=== PATIENT | female | born 1995 | race Caucasian/White ===

== ENCOUNTER 2020-03-05 11:04 | Emergency (ER) | payer MEDICAID, SELFPAY ==
--- NOTE | ~2020-03-05 | US_ITS ---
EXAMINATION: US OB <=14 wk fetus w TV EXAM DATE: 03/05/2020 14:18 INDICATION: , vaginal bleeding. 1st trimester. TECHNIQUE: Pelvic obstetrical transabdominal sonogram was performed by a technologist. There are mu ltiple grayscale and Doppler images available for interpretation. There are no earlier studies of th is gestation for comparison. FINDINGS: Uterus measures 7.4 x 4.4 x 6.4 cm. There is intrauterine gestation sac, mean sac diameter 3.1 cm corresponding to estimated gestational age 8 weeks 1 day. There is a yolk sac identified with small contiguous soft tissue, possible pole with heart rate measured at 98 bpm. If this is a f etal pole, there is discrepancy between size of it and the size of the gestation sac. There is a smal l subchorionic hemorrhage. The ovaries are morphologically normal. IMPRESSION: Intrauterine gestation sac significantly larger than would be expected for the possible small contiguous pole. Small subchorionic hemorrhage. Poor prognostic indicators for this pregn randa. Consider one week follow-up pelvic sonogram. Reviewed, dictated and finalized at location B. IOLOGY NURSE PRACTITIONER IMPRESSION: Intrauterine gestation sac significantly larger than would be expe cted for the possible small contiguous pole. Small subchorionic hemorrhag e. Poor prognostic indicators for this . Consider one week follow-up p vic sonogram.
[2020-03-05 11:11] VITALS: BP 111/72; PULSE 86; RESP 20; TEMP 36.7; O2SAT 99
--- NOTE | 2020-03-05 11:36 | ED.GENADULT ---
HPI - General Adult General Chief complaint: Vaginal Bleeding Stated complaint: Vag Bleeding, 6 Weeks Preg Time Seen by Provider: 03/05/20 11:16 Source: patient History of Present Illness HPI narrative: Patient is a 24 y/o female complaining of vaginal bleeding starting 3 days ago. She states that her bleeding is mild, like spotting. When it first started, the bleeding was bright red, but now it's more brown. There is no alleviating or exacerbating factor. She has no pelvic pain or dysuria. She states that she is . Her LMP was 01/24/20. Related Data Home Medications Medication Instructions Recorded Confirmed No Home Medications 03/05/20 03/05/20 Allergies Allergy/AdvReac Type Severity Reaction Status Date / Time No Known Allergies Allergy Verified 03/05/20 13:03 Review of Systems Constitutional: Constitutional: Denies chills, Denies fever(s), Denies headache(s) and Denies weakness Eyes: Eyes: Denies blurry vision ENT: Denies headache(s) and Denies neck pain Cardiovascular: Cardiovascular: Denies chest pain and Denies dyspnea Respiratory: Respiratory: Denies cough and Denies dyspnea Gastrointestinal: Gastrointestinal: Denies abdominal pain, Denies diarrhea, Denies nausea and Denies vomiting Genitourinary: Genitourinary: Reports abnormal vaginal bleeding, Denies hematuria and Denies dysuria Musculoskeletal: Musculoskeletal: Denies back pain and Denies neck pain Neurologic: Denies headache(s) and Denies weakness Exam Const: General: no acute distress and well developed Orientation/consciousness: oriented to person, oriented to place, oriented to time and patient oriented x3 HENMT: Head: normocephalic Ears: external ears normal General nose exam: Normal external nose present Eyes: General: appearance normal, both eyes and all related structures Conjunctivae: conjunctivae normal Neck: Neck: normal visual inspection and full ROM Chest: Chest palpation & inspection: normal inspection of the chest and no tenderness Resp: Effort & Inspection: normal respiratory effort Auscultation: clear to auscultation bilaterally Cardio: Rate: regular rate Rhythm: regular rhythm GI: GI Palp: No abdominal tenderness and Yes Soft to palpation : External Female Exam: normal external appearance Speculum Exam - Vagina: vaginal bleeding Speculum Exam - Cervix: normal appearance of the cervix and Other cervical findings present (closed) Skin: General skin exam: normal color and turgor normal Neuro: General: oriented to person, oriented to place, oriented to time and patient oriented x3 Cognition (Neuro): normal cognition Extrem: General: normal to inspection, full ROM and no pedal edema Psych: Appearance: grossly normal Mental Status: mental status grossly normal Affect: normal affect Course Consultations Consultation #1: Discussed with Dr. Griffin (Practical Nurse Clinical Coordinator section plotter operator), who recommends pelvic rest and repeat US in 1 week. Patient can all her office for follow up. Date: 03/05/20 Time: 14:58 Vital Signs Vital signs: Vital Signs Temperature 36.7 C 03/05/20 11:11 Pulse Rate 86 03/05/20 11:11 Respiratory Rate 20 03/05/20 11:11 Blood Pressure 111/72 03/05/20 11:11 Pulse Oximetry 99 03/05/20 11:11 Temperature 36.7 C 03/05/20 11:11 Pulse Rate 68 03/05/20 15:12 Respiratory Rate 18 03/05/20 15:12 Blood Pressure 120/70 03/05/20 15:12 Pulse Oximetry 99 03/05/20 15:12 Medical Decision Making Vital Signs Vital Signs: Vital Signs Temperature 36.7 C 03/05/20 11:11 Pulse Rate 86 03/05/20 11:11 Respiratory Rate 20 03/05/20 11:11 Blood Pressure 111/72 03/05/20 11:11 Pulse Oximetry 99 03/05/20 11:11 Temperature 36.7 C 03/05/20 11:11 Pulse Rate 68 03/05/20 15:12 Respiratory Rate 18 03/05/20 15:12 Blood Pressure 120/70 03/05/20 15:12 Pulse Oximetry 99 03/05/20 15:12 Lab Data Result diagrams: 03/05/20 12:30 03/05/20 12:30
[2020-03-05 12:39] LABS: Basophils Percent Auto 0.4 % (0.2-1.2); Eosinophils Percent Auto 0.4 % (0-4.4); Hematocrit 43.9 % (37.0-47.0); Hemoglobin 15.7 g/dL (12.0-15.0); Immature Granulocyte Absolute 0.02 K/mm3 (0.00-0.031); Immature Granulocyte Percent A 0.3 % (0-0.5); Lymphocytes Absolute Auto 1.35 K/mm3 (0.9-3.2); Mean Corpuscular HGB Conc 35.8 g/dl (32-36); Mean Corpuscular Hemoglobin 32.1 pg (26-34); Mean Corpuscular Volume 89.8 fl (80-100); Mean Platelet Volume 10.8 fl (7.4-10.4); Monocytes Absolute Auto 0.6 K/mm3 (0.1-0.6); Monocytes Percent Auto 8.8 % (2.6-8.5); Neutrophils Absolute Auto 4.7 K/mm3 (1.3-6.7); Neutrophils Percent Auto 70.1 % (45.5-73.1); Platelet Count Result 279 k/mm3 (150-375); Red Blood Count 4.89 M/mm3 (4.2-5.4); Red Cell Distribution Width 11.1 % (11.5-14.5); White Blood Count 6.7 K/mm3 (4.5-10.0)
[2020-03-05 12:41] LABS: Add Urine Microscopic? NO; Appearance Urine Clear (Clear); Bilirubin Urine Negative (Negative); Blood Urine Negative (Negative); Color Urine Straw (Yellow); Glucose Urine UA Negative (Negative); Ketones Urine Negative (Negative); Leukocyte Esterase Ur Negative LEU/UL (Negative); Nitrate Urine Negative (Negative); Protein Urine Negative (Negative); Specific Grav Ur 1.006 (1.001-1.035); Urobilinogen Urine Negative mg/dL (<2.0)
[2020-03-05 12:51] LABS: Alanine Aminotransferase 13 U/L (4-35); Albumin Level 4.9 g/dL (3.5-5.1); Alkaline Phosphatase 60 U/L (38-126); Anion Gap 14 mmol/L (8-16); Aspartate Amino Transferase 23 U/L (14-36); Bilirubin,Total 0.8 mg/dL (0.2-1.3); Blood Urea Nitrogen 5 mg/dL (7-17); Calcium 10.2 mg/dL (8.4-10.2); Carbon Dioxide 22 mmol/L (22-30); Chloride 102 mmol/L (98-107); Estimated Glomerular Filt Rate > 60; Glucose 79 mg/dL (65-105); Potassium 3.3 mmol/L (3.4-5.0); Sodium 138 mmol/L (137-145)
[2020-03-05 13:00] VITALS: BP 122/76; PULSE 70; RESP 18; O2SAT 99
[2020-03-05] MEDS: POTASSIUM CHLORIDE 20 MEQ TABLET PO (13:02)
[2020-03-05 15:12] VITALS: BP 120/70; PULSE 68; RESP 18; O2SAT 99
== END 2020-03-05 15:14 | disposition home or self-care (01) ==
PROVIDERS: Emergency Provider Emergency Medicine; PCP Internal Medicine
DX: O20.0 Threatened abortion (principal); Z3A.08 8 weeks gestation of pregnancy
CPT/HCPCS: 36415; 76801; 76817; 80053; 81003; 81025; 84702; 85025; 86900; 86901; 99284; A9270

== ENCOUNTER 2020-03-19 14:53 | Outpatient (CLI) | payer MEDICAID, SELFPAY ==
--- NOTE | ~2020-03-19 | US_ITS ---
EXAMINATION: US OB <=14 wk fetus w TV DATE: 03/19/2020 15:32 INDICATION: Threatened miscarriage, first trimester TECHNIQUE: Real-time pelvic transabdominal and transvaginal ultrasound was performed. COMPARISON: 03/05/2020 FINDINGS: The uterus measures 9.8 x 5.9 x 9.4 cm. There is an intrauterine gestational sac. A yolk s ac is identified. heart motion is identified measuring 161 beats per minute (bpm) by M-mode Dop pler. The crown rump length measures 1.6 cm , which correlates with an estimated gestational ag e of 8 weeks and 0 day(s) (+/-) 5 day(s). The right ovary measures 3.2 x 2.5 x 1.8 cm. The left ovary measures 4.3 x 3.7 x 2.2 cm. There is nor mal vascular flow in the ovaries. There is no free fluid in the pelvis. IMPRESSION: 1. Live intrauterine with an estimated gestational age of 8 weeks and 0 day(s) (+/-) 5 day( s) and an estimated delivery date of 10/29/2020. Reviewed, dictated and finalized at location A. CAL RECORD RETRIEVAL SPECIALIST IMPRESSION: 1. Live intrauterine with an estimated gestational age of 8 weeks and 0 day(s) (+/-) 5 day(s) and an estimated delivery date of 10/29/2020.
== END 2020-03-19 14:54 | disposition home or self-care (01) ==
PROVIDERS: PCP Internal Medicine; Visit Provider Obstetrics & Gynecology
DX: O20.0 Threatened abortion (principal); Z3A.08 8 weeks gestation of pregnancy
CPT/HCPCS: 76801; 76817

== ENCOUNTER 2020-05-08 12:49 | Outpatient (RCR) | payer MEDICAID, SELFPAY ==
[2020-05-08 13:22] LABS: Basophils Percent Auto 0.3 % (0.2-1.2); Eosinophils Percent Auto 0.5 % (0-4.4); Hematocrit 34.9 % (37.0-47.0); Hemoglobin 12.5 g/dL (12.0-15.0); Immature Granulocyte Absolute 0.02 K/mm3 (0.00-0.031); Immature Granulocyte Percent A 0.3 % (0-0.5); Lymphocytes Absolute Auto 1.11 K/mm3 (0.9-3.2); Lymphocytes Percent Auto 17.7 % (18.3-44.2); Mean Corpuscular HGB Conc 35.8 g/dl (32-36); Mean Corpuscular Hemoglobin 32.3 pg (26-34); Mean Corpuscular Volume 90.2 fl (80-100); Mean Platelet Volume 10.6 fl (7.4-10.4); Monocytes Absolute Auto 0.4 K/mm3 (0.1-0.6); Monocytes Percent Auto 6.2 % (2.6-8.5); Neutrophils Absolute Auto 4.7 K/mm3 (1.3-6.7); Platelet Count Result 243 k/mm3 (150-375); Red Blood Count 3.87 M/mm3 (4.2-5.4); Red Cell Distribution Width 12.8 % (11.5-14.5); White Blood Count 6.3 K/mm3 (4.5-10.0)
[2020-05-08 13:24] LABS: Add Urine Microscopic? NO; Appearance Urine Clear (Clear); Bilirubin Urine Negative (Negative); Blood Urine Negative (Negative); Color Urine Yellow (Yellow); Glucose Urine UA Negative (Negative); Ketones Urine Negative (Negative); Leukocyte Esterase Ur Negative LEU/UL (NEGATIVE); Nitrate Urine Negative (Negative); Protein Urine Negative (Negative); Specific Grav Ur 1.014 (1.001-1.035); Urobilinogen Urine Negative mg/dL (<2.0)
[2020-05-08 14:06] LABS: Vitamin D 25 Hydroxy 39.7 ng/mL
[2020-05-08 14:20] LABS: HIV 1/2 Ab P24 Ag Result Negative (Negative)
[2020-05-08 14:22] LABS: Hepatitis B Surface Antigen Negative (Negative); Rubella IgG Antibody 18.2 IU/ML
[2020-05-08 14:39] LABS: Hepatitis C Virus Antibody Negative (Negative)
[2020-05-09 10:38] LABS: Rapid Plasma Reagin Non-Reactive (NonReactive)
[2020-05-12 14:53] LABS: Hematocrit 36.2 % (35.0-45.0); Hemoglobin 12.5 g/dL (11.7-15.5); MCH 31.6 pg (27.0-33.0); MCV 91.9 FL (80.0-100.0); RDW 13.3 % (11.0-15.0); Red Blood Cell Count 3.94 Mill/uL (3.80-5.10)
== END 2020-08-06 23:59 | disposition home or self-care (01) ==
LOC: ANHLAB 12:49
PROVIDERS: PCP Internal Medicine; Visit Provider Student in an Organized Health Care Education/Training Program
DX: Z11.4 Encounter for screening for human immunodeficiency virus [HIV] (principal)
CPT/HCPCS: 36415; 81003; 82306; 83021; 84443; 85025; 86592; 86703; 86762; 86787; 86803; 86850; 86900; 86901; 87077; 87086; 87088; 87340; G0432

== ENCOUNTER 2020-07-28 07:29 | Outpatient (CLI) | payer MEDICAID, SELFPAY ==
[2020-07-28 08:50] LABS: Basophils Percent Auto 0.4 % (0.2-1.2); Eosinophils Absolute Auto 0.1 K/mm3 (0-0.3); Eosinophils Percent Auto 0.6 % (0-4.4); Hemoglobin 12.1 g/dL (12.0-15.0); Immature Granulocyte Absolute 0.11 K/mm3 (0.00-0.031); Immature Granulocyte Percent A 1.1 % (0-0.5); Lymphocytes Absolute Auto 1.06 K/mm3 (0.9-3.2); Lymphocytes Percent Auto 10.8 % (18.3-44.2); Mean Corpuscular HGB Conc 33.6 g/dl (32-36); Mean Corpuscular Hemoglobin 31.2 pg (26-34); Mean Corpuscular Volume 92.8 fl (80-100); Mean Platelet Volume 10.8 fl (7.4-10.4); Monocytes Absolute Auto 0.6 K/mm3 (0.1-0.6); Monocytes Percent Auto 6.2 % (2.6-8.5); Neutrophils Percent Auto 80.9 % (45.5-73.1); Platelet Count Result 261 k/mm3 (150-375); Red Blood Count 3.88 M/mm3 (4.2-5.4); Red Cell Distribution Width 12.2 % (11.5-14.5); White Blood Count 9.8 K/mm3 (4.5-10.0)
[2020-07-28 09:12] LABS: Glucose 1 Hour PP 50gm Dose 132 mg/dL
== END 2020-07-28 07:30 | disposition home or self-care (01) ==
PROVIDERS: PCP Internal Medicine; Visit Provider Student in an Organized Health Care Education/Training Program
DX: Z34.02 Encounter for supervision of normal first pregnancy, second trimester (principal); Z3A.00 Weeks of gestation of pregnancy not specified
CPT/HCPCS: 36415; 82947; 85025

== ENCOUNTER 2020-08-08 14:15 | Observation (INO) | payer MEDICAID, SELFPAY ==
[2020-08-08 14:31] VITALS: BP 105/66; PULSE 90
[2020-08-08 14:45] VITALS: BP 106/65; PULSE 87
[2020-08-08 15:00] VITALS: BP 115/74; PULSE 88
[2020-08-08] MEDS: DIPHENOXYLATE/ATROPINE (*CRX) 2.5 MG TABLET 1 TABLET PO (15:08)
--- NOTE | 2020-08-08 15:17 | PC.NURSE ---
1451-Spoke with Dr. Smith, orders to give lomotil PO, check cervix and PO hydrate patient. Continue to monitor.
--- NOTE | 2020-08-08 15:19 | OBADM ---
This patient, Lisbet Vasquez, admitted to the OB room OB Post 115 for observation. Patient/family oriented to hospital policies and general routines including ID bracelet, bed and alarms, visiting hours, pain management, procedures, bathroom and other care routines, personal items, smoking policy, room service/diet, and visiting hours. Patient/Family are encouraged to report perceived risks to care and to ask questions if they do not understand what they are told or what they should do.
--- NOTE | 2020-08-08 16:48 | PC.NURSE ---
4833- SPoke with Dr. Smith, patient states she is feeling a little bit better. Mid irritability noted with rare contractions. Orders to discharge to home with follow up next week in the office.
--- NOTE | 2020-08-29 10:53 | PM.OBTRLD ---
OB - Triage/Final Diagnosis Visit Information Comments/Additional reasons for admission: I have assessed the risk for this patient, Lisbet Vasquez, and determined that she would benefit from observation care. Final Diagnosis (1) Diarrhea during : Code(s): O26.899 - Other specified related conditions, unspecified trimester; R19.7 - Diarrhea, unspecified Status: Acute
== END 2020-08-08 16:57 | disposition home or self-care (01) ==
PROVIDERS: Admitting Provider Student in an Organized Health Care Education/Training Program; PCP Internal Medicine; Visit Provider Student in an Organized Health Care Education/Training Program
DX: O26.893 Other specified pregnancy related conditions, third trimester (principal); R19.7 Diarrhea, unspecified; Z3A.28 28 weeks gestation of pregnancy
CPT/HCPCS: A9270; G0378; G0379

== ENCOUNTER 2020-08-14 06:47 | Outpatient (CLI) | payer BC, SELFPAY ==
[2020-08-14 07:48] LABS: Glucose Fasting Gestational 89 mg/dL (>/=95)
[2020-08-14 09:20] LABS: Glucose 1 Hour Gest 137 mg/dL (>/=180)
[2020-08-14 10:13] LABS: Glucose 2 Hour Gest 114 mg/dL (>/= 155)
[2020-08-14 11:41] LABS: Glucose 3 Hour Gest 76 mg/dL (>/=140)
== END 2020-08-14 06:48 | disposition home or self-care (01) ==
PROVIDERS: PCP Internal Medicine; Visit Provider Student in an Organized Health Care Education/Training Program
DX: O99.810 Abnormal glucose complicating pregnancy (principal); Z3A.00 Weeks of gestation of pregnancy not specified
CPT/HCPCS: 36415; 82951; 82952

== ENCOUNTER 2020-09-17 17:07 | Outpatient (CLI) | payer BC, SELFPAY ==
[2020-09-17 17:35] LABS: Basophils Percent Auto 0.3 % (0.2-1.2); Eosinophils Absolute Auto 0.1 K/mm3 (0-0.3); Eosinophils Percent Auto 0.8 % (0-4.4); Hematocrit 37.5 % (37.0-47.0); Immature Granulocyte Absolute 0.17 K/mm3 (0.00-0.031); Immature Granulocyte Percent A 1.7 % (0-0.5); Lymphocytes Absolute Auto 1.25 K/mm3 (0.9-3.2); Lymphocytes Percent Auto 12.1 % (18.3-44.2); Mean Corpuscular Hemoglobin 28.8 pg (26-34); Mean Corpuscular Volume 89.9 fl (80-100); Mean Platelet Volume 11.5 fl (7.4-10.4); Monocytes Absolute Auto 0.8 K/mm3 (0.1-0.6); Monocytes Percent Auto 7.7 % (2.6-8.5); Neutrophils Percent Auto 77.4 % (45.5-73.1); Platelet Count Result 263 k/mm3 (150-375); Red Blood Count 4.17 M/mm3 (4.2-5.4); Red Cell Distribution Width 12.9 % (11.5-14.5); White Blood Count 10.3 K/mm3 (4.5-10.0)
[2020-09-17 19:30] LABS: HIV 1/2 Ab P24 Ag Result Negative (Negative)
[2020-09-18 10:09] LABS: Rapid Plasma Reagin Non-Reactive (NonReactive)
== END 2020-09-17 17:08 | disposition home or self-care (01) ==
PROVIDERS: PCP Internal Medicine; Visit Provider Student in an Organized Health Care Education/Training Program
DX: Z34.03 Encounter for supervision of normal first pregnancy, third trimester (principal); Z3A.00 Weeks of gestation of pregnancy not specified
CPT/HCPCS: 36415; 85025; 86592; 86703; G0432

== ENCOUNTER 2020-09-20 10:47 | Observation (INO) | payer BC, SELFPAY ==
[2020-09-20 11:00] VITALS: BMI 32.7
[2020-09-20 11:15] VITALS: BP 112/69; PULSE 85
[2020-09-20 11:30] VITALS: BP 117/69; PULSE 88
[2020-09-20 11:45] VITALS: BP 114/69; PULSE 82
[2020-09-20 12:00] VITALS: BP 115/66; PULSE 82
--- NOTE | 2020-09-20 12:20 | OBADM ---
This patient, Lisbet Vasquez, admitted to the OB room OB Post 117 for observation. Patient/family oriented to hospital policies and general routines including ID bracelet, bed and alarms, visiting hours, pain management, procedures, bathroom and other care routines, personal items, smoking policy, room service/diet, and visiting hours. Patient/Family are encouraged to report perceived risks to care and to ask questions if they do not understand what they are told or what they should do.
--- NOTE | 2020-10-10 16:21 | PM.OBTRLD ---
OB - Triage/Final Diagnosis Visit Information Comments/Additional reasons for admission: I have assessed the risk for this patient, Lisbet Vasquez, and determined that she would benefit from observation care. Final Diagnosis (1) Vaginal discharge in : Code(s): O26.899 - Other specified related conditions, unspecified trimester; N89.8 - Other specified noninflammatory disorders of vagina Status: Acute
== END 2020-09-20 12:16 | disposition home or self-care (01) ==
PROVIDERS: Admitting Provider Student in an Organized Health Care Education/Training Program; PCP Internal Medicine; Visit Provider Student in an Organized Health Care Education/Training Program
DX: O26.893 Other specified pregnancy related conditions, third trimester (principal); N89.8 Other specified noninflammatory disorders of vagina; Z3A.34 34 weeks gestation of pregnancy
CPT/HCPCS: 84112; G0378; G0379

== ENCOUNTER 2020-10-16 20:00 | Observation (INO) | payer BC, SELFPAY ==
[2020-10-16 20:30] VITALS: BMI 35.6
--- NOTE | 2020-10-16 20:30 | OBADM ---
This patient, Lisbet Vasquez, admitted to the OB room OB Post 113 for observation. Patient/family oriented to hospital policies and general routines including ID bracelet, bed and alarms, visiting hours, pain management, procedures, bathroom and other care routines, personal items, smoking policy, room service/diet, and visiting hours. Patient/Family are encouraged to report perceived risks to care and to ask questions if they do not understand what they are told or what they should do.
--- NOTE | 2020-10-19 15:25 | PM.OBTRLD ---
OB - Triage/Final Diagnosis Visit Information Comments/Additional reasons for admission: I have assessed the risk for this patient, Lisbet Vasquez, and determined that she would benefit from observation care. Final Diagnosis (1) Decreased movement: Code(s): O36.8190 - Decreased movements, unspecified trimester, not applicable or unspecified Status: Acute
== END 2020-10-16 21:52 | disposition home or self-care (01) ==
PROVIDERS: Admitting Provider Obstetrics & Gynecology; PCP Internal Medicine; Visit Provider Obstetrics & Gynecology
DX: O36.8190 Decreased fetal movements, unspecified trimester, not applicable or unspecified (principal); Z3A.00 Weeks of gestation of pregnancy not specified
CPT/HCPCS: G0378; G0379

== ENCOUNTER 2020-10-23 06:05 | Inpatient (IN) | payer BC, SELFPAY ==
[2020-10-23] VITALS (189 sets, daily range): BP systolic 86–158; BP diastolic 37–130; PULSE 60–138; RESP 16–18; TEMP 36.2–37.1; O2SAT 97–100; BMI 35.2
[2020-10-23] MEDS: AMPICILLIN 2 GM/NS 100 ML 2 GM/100 ML BAG IVPB (06:39)
[2020-10-23] MEDS: OXYTOCIN 30 UNITS/NS 500 ML 30 UNITS/500 ML BAG 6 UNITS IV CONT (06:40)
[2020-10-23] MEDS: LACTATED RINGERS 1,000 ML 125 ML IV CONT ×3 (06:40→16:51)
[2020-10-23 06:58] LABS: Basophils Percent Auto 0.4 % (0.2-1.2); Eosinophils Absolute Auto 0.1 K/mm3 (0-0.3); Eosinophils Percent Auto 0.8 % (0-4.4); Hematocrit 34.8 % (37.0-47.0); Hemoglobin 11.2 g/dL (12.0-15.0); Immature Granulocyte Absolute 0.09 K/mm3 (0.00-0.031); Immature Granulocyte Percent A 1.1 % (0-0.5); Lymphocytes Absolute Auto 1.34 K/mm3 (0.9-3.2); Lymphocytes Percent Auto 15.7 % (18.3-44.2); Mean Corpuscular HGB Conc 32.2 g/dl (32-36); Mean Corpuscular Hemoglobin 28.2 pg (26-34); Mean Corpuscular Volume 87.7 fl (80-100); Mean Platelet Volume 12.6 fl (7.4-10.4); Monocytes Absolute Auto 0.7 K/mm3 (0.1-0.6); Monocytes Percent Auto 8.2 % (2.6-8.5); Neutrophils Absolute Auto 6.3 K/mm3 (1.3-6.7); Neutrophils Percent Auto 73.8 % (45.5-73.1); Platelet Count Result 229 k/mm3 (150-375); Red Blood Count 3.97 M/mm3 (4.2-5.4); Red Cell Distribution Width 13.8 % (11.5-14.5); White Blood Count 8.6 K/mm3 (4.5-10.0)
--- NOTE | 2020-10-23 07:53 | WPDANESEPP ---
Anes - Eval Pre Procedure Procedure: labor epidural Date/Time: 10/23/20 07:53 Surgeon: navjot Preop Diagnosis: pain during labor Pre Op Diagnosis: induction of labor Patient Data Age: 25 Gender: F Height: Weight: Last Vital Signs Temp 36.2 C L 10/23/20 06:30 Pulse 72 10/23/20 07:30 BP 102/60 10/23/20 07:30 Allergies Allergy/AdvReac Type Severity Reaction Status Date / Time menthol Allergy Unknown Rash Verified 10/19/20 14:51 Home Medications Medication Instructions Recorded Confirmed Type prenat.vits,shoshana,[id number] 1 tablet PO DAILY 03/28/20 10/16/20 History Laboratory Tests 10/23/20 10/23/20 06:42 06:42 WBC 8.6 K/mm3 K/mm3 (4.5-10.0) RBC 3.97 M/mm3 L M/mm3 (4.2-5.4) Hgb 11.2 g/dL L g/dL (12.0-15.0) Hct 34.8 % L % (37.0-47.0) MCV 87.7 fl fl (80-100) MCH 28.2 pg pg (26-34) MCHC 32.2 g/dl g/dl (32-36) RDW 13.8 % % (11.5-14.5) Plt Count 229 k/mm3 k/mm3 (150-375) MPV 12.6 fl H fl (7.4-10.4) Immature Gran % (Auto) 1.1 % H % (0-0.5) Neut % (Auto) 73.8 % H % (45.5-73.1) Lymph % (Auto) 15.7 % L % (18.3-44.2) [place] % (Auto) 8.2 % % (2.6-8.5) Eos % (Auto) 0.8 % % (0-4.4) Baso % (Auto) 0.4 % % (0.2-1.2) Lymph # (Auto) 1.34 K/mm3 K/mm3 (0.9-3.2) [place] # (Auto) 0.7 K/mm3 H K/mm3 (0.1-0.6) Eos # (Auto) 0.1 K/mm3 K/mm3 (0-0.3) Baso # (Auto) 0.0 K/mm3 K/mm3 (0.0-0.1) Abs Immat Gran (auto) 0.09 K/mm3 H K/mm3 (0.00-0.031) Absolute Neuts (auto) 6.3 K/mm3 K/mm3 (1.3-6.7) Absolute Nucleated RBC 0.0 K/mm3 K/mm3 (0.0-0.012) Nucleated RBC % 0.0 % % (0.0-0.2) RPR Pending Patient hx anesthesia problems: none Family hx anesthesia problems: none [facility] Past Medical History Medical History Anxiety Surgical History Surgical History H/O breast biopsy 2020 History of tonsillectomy [place] teeth removed Family History Family History Grandparent Breast cancer Cerebrovascular accident Other Acute myocardial infarction Social History Social History Smoking status: Never smoker Alcohol intake: former Alcohol use details: Not since Substance use: never Spiritual care concerns: No Exam Day of Procedure 10/23/20 07:53
[2020-10-23 10:04] LABS: Rapid Plasma Reagin Non-Reactive (NonReactive)
[2020-10-23] MEDS: AMPICILLIN 1 GM/NS 50 ML 1 GM/50 ML BAG IVPB ×3 (11:10→21:45)
--- NOTE | 2020-10-23 12:53 | PM.IMHP ---
H&P: HPI History of Present Illness Date/Time: 10/23/20 12:53 The patient is a 25yo LMP 01/24/20 currently 39w gestation with an estimated due date of 10/30/2020 She presents to Labor and delivery for scheduled elective induction of labor. Patient is dated by her LMP which is consistent with an ultrasound on 03/19/2020 at 8 weeks gestation. In general, patient reports feeling well today. Reports occasional contractions. Denies any vaginal bleeding or leakage of fluid. Reports good movement. course was relatively uncomplicated. Patient had an abnormal 1 hr GCT followed by normal 3 hr GTT. She has been followed with serial ultrasounds for size greater than dates. Most recent ultrasound on October 08, 2020 showed estimated weight 3504g, 90th percentile. Chief Complaint: Induction of labor Review of Systems Review of Systems: All systems reviewed & are unremarkable except as noted in HPI and below Constitutional: Constitutional: Reports as per HPI and Reports no additional constitutional complaints Eyes: Eyes: Reports as per HPI and Reports no additional eye complaints ENT: Reports system reviewed and no additional complaints, except as documented and Reports as per HPI Cardiovascular: Cardiovascular: Reports as per HPI and Reports no additional cardiovascular complaints Respiratory: Respiratory: Reports as per HPI and Reports no additional respiratory complaints Gastrointestinal: Gastrointestinal: Reports as per HPI and Reports no additional gastrointestinal complaints Genitourinary: Genitourinary: Reports no additional female genitourinary complaints and Reports as per HPI Musculoskeletal: Musculoskeletal: Reports no additional musculoskeletal complaints and Reports as per HPI Integumentary/Breasts: Skin/Breast: Reports system reviewed and no additional complaints, except as docu and Reports as per HPI Neurologic: Reports system reviewed and no additional complaints, except as documented and Reports as per HPI Psychiatric: Psychiatric: Reports no additional psychiatric complaints and Reports as per HPI Endocrine: Endocrine: Reports no additional endocrine complaints and Reports as per HPI Hematologic/Lymphatic: Hematologic/Lymphatic: Reports no additional hematologic/lymphatic complaints and Reports as per HPI Allergic/Immunologic: Allergic/Immunologic: Reports no additional allergic/immunologic complaints and Reports as per HPI PMF Past Medical History Medical History Anxiety Surgical History Surgical History H/O breast biopsy 2019 History of tonsillectomy [place] teeth removed Family History Family History Grandparent Breast cancer Cerebrovascular accident Other Acute myocardial infarction Social History Social History Smoking status: Never smoker Second hand tobacco smoke exposure: Yes Alcohol intake: former Alcohol use details: Not since Substance use: never Spiritual care concerns: No Meds Home Medications and Allergies Home Medications Medication Instructions Recorded Confirmed Type prenat.vits,shoshana,[id number] 1 tablet PO DAILY 03/28/20 10/23/20 History Allergies Allergy/AdvReac Type Severity Reaction Status Date / Time menthol Allergy Unknown Rash Verified 10/19/20 14:51 Vital Signs Vital Signs - 24 hr 10/23/20 06:30 10/23/20 06:50 10/23/20 07:00 Temperature 36.2 C L Pulse Rate 87 85 Blood Pressure 128/81 98/59 L 10/23/20 07:15 10/23/20 07:30 10/23/20 08:16 Temperature Pulse Rate 81 72 76 Blood Pressure 96/48 L 102/60 91/51 L 10/23/20 08:30 10/23/20 08:45 10/23/20 09:01 Temperature Pulse Rate 70 70 75 Blood Pressure 106/62 103/54 L 93/53 L 10/23/20 10:00 10/23/20 10:31 10/23/20 10:
--- NOTE | 2020-10-23 12:54 | PM.OBPNLAB ---
Pain Control Date/time seen: 10/23/20 12:54 Patient doing well. SVE /-2. AROM performed. Clear amniotic fluid noted. EFM category 1. [place] shows contractions every 1-2 minutes. Continue pitocin.
--- NOTE | 2020-10-23 15:47 | PM.OBTRLD ---
OB - Triage/Final Diagnosis Visit Information Comments/Additional reasons for admission: I have assessed the risk for this patient, Lisbet Vasquez, and determined that she would benefit from observation care. Evaluation Laboratory results: Laboratory Tests 10/23/20 10/23/20 10/23/20 06:42 06:42 06:42 WBC 8.6 RBC 3.97 L Hgb 11.2 L Hct 34.8 L MCV 87.7 MCH 28.2 MCHC 32.2 RDW 13.8 Plt Count 229 MPV 12.6 H Immature Gran % (Auto) 1.1 H Neut % (Auto) 73.8 H Lymph % (Auto) 15.7 L [place] % (Auto) 8.2 Eos % (Auto) 0.8 Baso % (Auto) 0.4 Lymph # (Auto) 1.34 [place] # (Auto) 0.7 H Eos # (Auto) 0.1 Baso # (Auto) 0.0 Abs Immat Gran (auto) 0.09 H Absolute Neuts (auto) 6.3 Absolute Nucleated RBC 0.0 Nucleated RBC % 0.0 RPR Non-reactive Blood Type O Positive Antibody Screen Negative Vital signs: Vital Signs - 24 hr 10/23/20 06:30 10/23/20 06:50 10/23/20 07:00 Temperature 36.2 C L Pulse Rate 87 85 Blood Pressure 128/81 98/59 L Pulse Oximetry 10/23/20 07:15 10/23/20 07:30 10/23/20 08:16 Temperature Pulse Rate 81 72 76 Blood Pressure 96/48 L 102/60 91/51 L Pulse Oximetry 10/23/20 08:30 10/23/20 08:45 10/23/20 09:01 Temperature Pulse Rate 70 70 75 Blood Pressure 106/62 103/54 L 93/53 L Pulse Oximetry 10/23/20 10:00 10/23/20 10:31 10/23/20 10:45 Temperature Pulse Rate 64 66 62 Blood Pressure 107/58 L 107/46 L 104/55 L Pulse Oximetry 10/23/20 11:00 10/23/20 11:15 10/23/20 11:30 Temperature Pulse Rate 62 60 65 Blood Pressure 97/47 L 100/57 L 107/58 L Pulse Oximetry 10/23/20 11:46 10/23/20 12:00 10/23/20 12:16 Temperature Pulse Rate 68 68 69 Blood Pressure 113/62 110/64 91/56 L Pulse Oximetry 10/23/20 12:30 10/23/20 12:46 10/23/20 13:01 Temperature 36.6 C Pulse Rate 67 72 68 Blood Pressure 104/74 116/70 106/75 Pulse Oximetry 10/23/20 13:16 10/23/20 13:31 10/23/20 13:49 Temperature Pulse Rate 72 82 86 Blood Pressure 100/63 87/50 L 138/77 Pulse Oximetry 100 10/23/20 13:50 10/23/20 13:54 10/23/20 13:56 Temperature Pulse Rate 84 97 Blood Pressure 128/76 110/56 L Pulse Oximetry 100 10/23/20 13:59 10/23/20 14:00 10/23/20 14:02 Temperature Pulse Rate 72 76 Blood Pressure 120/88 129/104 H Pulse Oximetry 100 10/23/20 14:03 10/23/20 14:05 10/23/20 14:10 Temperature Pulse Rate 70 67 63 Blood Pressure 118/71 118/72 125/58 L Pulse Oximetry 10/23/20 14:16 10/23/20 14:20 10/23/20 14:25 Temperature Pulse Rate 65 64 69 Blood Pressure 124/69 112/98 H 115/69 Pulse Oximetry 99 100 10/23/20 14:30 10/23/20 14:35 10/23/20 14:40 Temperature Pulse Rate 68 62 Blood Pressure 111/69 115/77 Pulse Oximetry 100 100 99 10/23/20 14:41 10/23/20 14:45 10/23/20 14:46 Temperature Pulse Rate 75 82 Blood Pressure 105/66 102/72 Pulse Oximetry 99 10/23/20 14:50 10/23/20 14:51 10/23/20 14:55 Temperature Pulse Rate 79 Blood Pressure 111/62 Pulse Oximetry 99 99 10/23/20 14:56 10/23/20 15:00 10/23/20 15:01 Temperature Pulse Rate 78 81 Blood Pressure 111/64 94/75 L Pulse Oximetry 100 10/23/20 15:05 10/23/20 15:06 10/23/20 15:10 Temperature Pulse Rate 72 75 Blood Pressure 101/61 110/56 L Pulse Oximetry 98 99 07/13/21 15:15 10/23/20 15:16 10/23/20 15:20 Temperature Pulse Rate 74 69 Blood Pressure 92/46 L 100/61 Pulse Oximetry 99 99 10/23/20 15:25 10/23/20 15:26 10/23/20 15:30 Temperature Pulse Rate 76 81 Blood Pressure 86/48 L 98/63 L Pulse Oximetry 99 99 10/23/20 15:35 10/23/20 15:40 10/23/20 15:45 Temperature Pulse Rate 75 Blood Pressure 100/53 L Pulse Oximetry 99 99 98 Final Diagnosis (1) Decreased movement: Code(s): O36.8190 - Decreased movements, unspecified trimester, not applicable or unspecified
--- NOTE | 2020-10-23 18:00 | WPDHPUPDATE1 ---
History and Physical Update Update Date/Time: 10/24/20 10:55 History and Physical has been reviewed, including an updated exam of the patient. There are NO changes in the patient's condition. Risks, benefits, and alternatives have been discussed and questions answered. Patient agrees to proceed with procedure.
[2020-10-24] VITALS (41 sets, daily range): BP systolic 101–139; BP diastolic 52–100; PULSE 64–123; RESP 16–18; TEMP 36.7–37.3; O2SAT 90–100
--- NOTE | 2020-10-24 00:37 | P.PNOB_ITS ---
Pain Control Date/time seen: 10/24/20 00:37 Called by RN for delivery. SVE fully dilated, -1 station. EFM category 1. [place] shows contractions q2 mins. Pushed with patient for several minutes with no descensus of head. Position seems to be OP or possibly transverse. Will attempt repositioning to see if head descends. Patient uncomfortable. Will ask anesthesia to evaluate pt.
--- NOTE | 2020-10-24 01:09 | PM.OBPNLAB ---
Pain Control Date/time seen: 10/24/20 01:09 Patient reports feeling extremely tired. Epidural providing suboptimal relief. Pushed with patient for a few additional times. head still at -1 station. Now with late decelerations on EFM. Decision made to proceed with section for arrest of descent, maternal exhaustion, and nonreassuring status. Patient understands and agrees with plan. Anesthesia aware.
--- NOTE | 2020-10-24 01:12 | W.PM.PROC2 ---
Procedure Note - Detailed Date of Procedure 10/24/20 Pre-op Diagnosis Intrauterine at 39w1d gestation Arrest of descent Maternal exhaustion Nonreassuring status Post-op Diagnosis same Procedure Performed Primary low transverse section via Pfannenstiel Surgeon Monica Smith MD Inspector Weights And Measures Gwendolyn Sinclair Anesthesia spinal Findings Live female infant in right occiput transverse presentation, clear amniotic fluid, normal appearing uterus, ovaries, and fallopian tubes Description of Procedure The patient was taken to the operating room, where she was transferred to the operating room table. Spinal anesthesia was administered and found to be adequate. The patient was placed in dorsal supine position with a leftward tilt. She was prepped and draped in the usual sterile fashion. Spinal anesthesia was tested and found to be adequate. A Pfannenstiel skin incision was made with a scalpel and carried through to underlying layer of fascia with the Bovie. The fascia was incised in the midline and the incision was extended laterally with the use of forceps and Villalpando scissors. The inferior aspect of the fascial incision was grasped with Juan Jose clamps, elevated, and the underlying rectus muscle were dissected off with Villalpando scissors. Attention was then turned to the superior aspect of the fascial incision, which in a similar manner, was grasped with Juan Jose clamps, elevated, and the underlying rectus muscles were also dissected off with Villalpando scissors. The rectus muscles were in the midline and the peritoneal cavity was entered bluntly. This incision was extended superiorly and inferiorly with good visualization of the bladder and care was taken to avoid blood vessels. A bladder blade was inserted. The vesicouterine peritoneum was identified and incised sharply with Metzenbaum scissors. This incision was extended laterally with Metzenbaum scissors and a bladder flap was created digitally. The bladder blade was replaced. A low-transverse uterine incision was made with a scalpel. This incision was extended laterally with bandage scissors. Amniotomy was performed. Clear amniotic fluid was noted. The 's head was noted to be in right occiput transverse position and was grasped and gently guided to the level of the uterine incision. The 's head was delivered easily and atraumatically without difficulty followed by the neck, shoulders, and rest of body with gentle fundal pressure. The infant's nose and mouth were suctioned bulb suction. The was whimpering. The cord was clamped and cut and the was handed off to awaiting nursing staff. A segment of cord was collected for cord gases. Cord blood was also collected. The placenta was then delivered manually with gentle uterine massage. Uterus was exteriorized and cleared of all clots and debris. The uterine incision was reapproximated with 0 Vicryl in a running, locked fashion. A second imbricating layer using 0 Monocryl performed. Excellent hemostasis was noted. On inspection, the uterus, ovaries, and fallopian tubes appeared to be normal bilaterally. The uterus was replaced into the abdominal cavity. The gutters were cleared of all clots and debris. The uterine incision was inspected again and noted to be hemostatic. Hemaderm was applied across the uterine incision. Interceed was also applied across the uterine incision and anterior surface of the uterus. The peritoneum was reapproximated with 2-0 Monocryl. The fascia was then closed with 0 Vicryl in a running fashion. The subcutaneous layer was irrigated with water. Pinpoint areas of bleeding were made hemostatic with Bovie. The skin was then closed with Insorb absorbable sutures. The skin was cleansed and dried. Dermaflex skin adhesive was applied across the incision. A pressure dressing was also applied. The remainder the patient was cleansed and dried. The patient was transferred to the recovery room in stable condition. All sponge, lap, and
[2020-10-24] MEDS: ceFAZolin 2 GM/D5W 50 ML 2 GM/50 ML BAG IVPB (01:30)
[2020-10-24] MEDS: OXYTOCIN 30 UNITS/NS 500 ML 30 UNITS/500 ML BAG 125 UNITS IV CONT (03:14)
--- NOTE | 2020-10-24 05:27 | PC.NURSE ---
This patient, Lisbet Vasquez, was received from L&D on 10/24/20 at 0506. Patient/family oriented to unit policies and routines
[2020-10-24] MEDS: DEXTROSE 5%/0.45% SOD CHL 1,000 ML 125 ML IV CONT (08:00)
[2020-10-24] MEDS: diphenhydrAMINE HCl INJ 50 MG/ML VIAL 25 MG IV PUSH (11:07)
[2020-10-24] MEDS: DOCUSATE SODIUM 100 MG CAPSULE PO (11:08)
[2020-10-24] MEDS: MULTIVIT/MIN/PREN/FOL AC/IRON TABLET 1 TAB PO (11:08)
[2020-10-24] MEDS: IBUPROFEN 600 MG TABLET PO ×2 (12:00→21:04)
--- NOTE | 2020-10-24 15:00 | PC.NURSE ---
Mother is listed at breast/bottle feeding. Mother has requested infant be bottle fed and reports she wishes to attempt to breast. Consult with pt., to offer assist with feeding or to initiate pumping. Mother reports she continues to have pain and is very tired she may attempt tomorrow.
[2020-10-24] MEDS: HYDROcodone/acetaminophen (*CRX) 10-325 MG TABLET 1 TAB PO (21:04)
[2020-10-25 05:17] LABS: Basophils Percent Auto 0.2 % (0.2-1.2); Eosinophils Absolute Auto 0.1 K/mm3 (0-0.3); Eosinophils Percent Auto 0.8 % (0-4.4); Hematocrit 28.7 % (37.0-47.0); Hemoglobin 9.2 g/dL (12.0-15.0); Immature Granulocyte Absolute 0.11 K/mm3 (0.00-0.031); Immature Granulocyte Percent A 0.8 % (0-0.5); Lymphocytes Absolute Auto 0.99 K/mm3 (0.9-3.2); Lymphocytes Percent Auto 7.6 % (18.3-44.2); Mean Corpuscular HGB Conc 32.1 g/dl (32-36); Mean Corpuscular Hemoglobin 28.1 pg (26-34); Mean Corpuscular Volume 87.8 fl (80-100); Mean Platelet Volume 12.6 fl (7.4-10.4); Monocytes Percent Auto 7.6 % (2.6-8.5); Neutrophils Absolute Auto 10.8 K/mm3 (1.3-6.7); Platelet Count Result 152 k/mm3 (150-375); Red Blood Count 3.27 M/mm3 (4.2-5.4); Red Cell Distribution Width 14.2 % (11.5-14.5)
[2020-10-25] MEDS: HYDROcodone/acetaminophen (*CRX) 5-325 MG TABLET 1 TAB PO ×2 (06:02→16:17)
[2020-10-25] MEDS: IBUPROFEN 600 MG TABLET PO ×2 (06:02→16:16)
[2020-10-25] MEDS: MULTIVIT/MIN/PREN/FOL AC/IRON TABLET 1 TAB PO (07:41)
[2020-10-25] MEDS: SIMETHICONE 80 MG TAB.CHEW PO ×2 (07:42→16:18)
[2020-10-25] MEDS: DOCUSATE SODIUM 100 MG CAPSULE PO ×2 (07:42→16:17)
[2020-10-25 08:00] VITALS: BP 112/72; PULSE 86; RESP 18; TEMP 36.7
--- NOTE | 2020-10-25 09:44 | PM.OBPNVD ---
OB - PN: Subj Subjective Date/time seen: 10/25/20 09:44 Patient doing well this morning. Reports feeling more well rested. Pain well controlled with medication. Denies any headache, chest pain, shortness of breath, nausea, or vomiting. Voiding without difficulty. Ambulating well. Passing flatus. OB - PN: Obj Data Labs CBC & Chem 7: 10/25/20 04:26 Labs: Laboratory Results - last 24 hr 10/25/20 04:26 WBC 13.0 H RBC 3.27 L Hgb 9.2 L Hct 28.7 L MCV 87.8 MCH 28.1 MCHC 32.1 RDW 14.2 Plt Count 152 MPV 12.6 H Immature Gran % (Auto) 0.8 H Neut % (Auto) 83.0 H Lymph % (Auto) 7.6 L Gooding % (Auto) 7.6 Eos % (Auto) 0.8 Baso % (Auto) 0.2 Lymph # (Auto) 0.99 Gooding # (Auto) 1.0 H Eos # (Auto) 0.1 Baso # (Auto) 0.0 Abs Immat Gran (auto) 0.11 H Absolute Neuts (auto) 10.8 H Absolute Nucleated RBC 0.0 Nucleated RBC % 0.0 OB - PN A/P Assessment and Plan (1) Delivery by section: Status: Acute Assessment and Plan: POD#1 doing well continue routine postoperative care pain management PRN encourage ambulation and use of IS Time Spent With Patient Time: Total time spent is greater than 50% in coordination of care (as documented) at patient's floor/unit and/or counseling patient: Exam Const: General: cooperative, healthy appearing, comfortable and no acute distress GI: Inspection: non-distended GI Palp: Yes Soft to palpation and No Tenderness to palpation present (GI) Other: inc c/d/i, fundus below umbilicus Extrem: Right lower extremity: edema (trace) Left lower extremity: edema (trace)
--- NOTE | 2020-10-25 12:13 | WPDANLDPN2 ---
Anes-Prog Note L&D Date/Time: 10/25/20 12:13 Comfortable throughout: section Neuraxial method: spinal Epidural/Spinal procedure site: clean & non-tender Neuro status: Neuro function grossly intact. Cardiovascular status: normal Respiratory status: normal Airway patency: baseline Mental status: baseline Post-Op hydration status: normal Vital Signs: Last Vital Signs Temp 36.7 C 10/25/20 08:00 Pulse 86 10/25/20 08:00 Resp 18 10/25/20 08:00 BP 112/72 10/25/20 08:00 Pulse Ox 97 10/24/20 20:00 Pain score (VAS): 04/22 I/O: Intake & Output 10/24/20 10/25/20 10/25/20 23:59 07:59 15:59 Intake Total 1000 Output Total 1275 Balance 1000 -1275 Post-procedural complaints: none Patient feedback: Patient satisfied with anesthetic care.
--- NOTE | 2020-10-25 12:13 | WPDANLDNPN2 ---
Anes-Prog Note L&D-Neuraxial Date/Time: 10/25/20 12:13 Neuraxial medications: intrathecal PF morphine Opiod-related complaints: none Patient feedback: Patient satisfied with post-operative pain management.
[2020-10-25] MEDS: POLYSACCHARIDE IRON COMPLEX 150 MG CAPSULE PO (16:17)
[2020-10-25 20:00] VITALS: BP 116/79; PULSE 75; RESP 16; TEMP 36.2; O2SAT 99
--- NOTE | 2020-10-26 07:19 | PM.OBPNVD ---
OB - PN: Subj Subjective Date/time seen: 10/26/20 07:19 Doing well this AM. Pain well controlled with medication. Denies any headache, chest pain, SOB, N/V. Ambulating without difficulty. Voiding without complaints. +flatus. Baby well. OB - PN: Obj Data Labs CBC & Chem 7: 10/25/20 04:26 OB - PN A/P Assessment and Plan (1) Delivery by section: Status: Acute Assessment and Plan: POD#2 doing well dc home in stable condition emergency precautions reviewed f/u in office in 2 weeks Time Spent With Patient Time: Total time spent is greater than 50% in coordination of care (as documented) at patient's floor/unit and/or counseling patient: Exam Const: General: cooperative, healthy appearing, comfortable and no acute distress GI: Inspection: non-distended GI Palp: Yes Soft to palpation and No Tenderness to palpation present (GI) Other: fundus firm below umbilicus, inc c/d/i Extrem: Right lower extremity: no edema Left lower extremity: no edema Other: no calf tenderness Psych: Appearance: grossly normal and well kempt
--- NOTE | 2020-10-26 07:22 | P.DS_ITS ---
DS: Admitting Diagnosis Admitting Diagnosis Admitting Diagnosis: Induction of labor OB - DS: Summary OB Procedures : None OB Procedures Intrapartum: OB Procedures: : None Peripartum Data Procedures: Procedures Operation Date: 10/24/20 01:15 Actual Procedure Side Surgeon p Section Monica Smith MD Time Spent with Patient Time attestation: Total time spent providing and/or coordinating discharge services: Discharge Plan Discharge Attending physician on discharge: Monica Smith Discharging Clinician: Monica Smith Anticipated Discharge Date/Time: 10/26/20 07:23 Patient Disposition: Home, Self-Care Activity: may drive after 2 weeks and pelvic rest Diet: regular Discharge Instructions: Call office ([phone]) to schedule the following appointments: 1. Postoperative/wound check in 2 weeks. 2. visit in 4-6 weeks. You may take Ibuprofen 600mg every 6 hours as needed for pain. I have sent a prescription for a stronger pain medication, [place], to your pharmacy. You may take this as prescribed for breakthrough pain (pain that is not controlled with Ibuprofen). No driving for at least two weeks. You also may not drive while taking narcotics. Pain medication may make you constipated. It may be helpful to take an habe-ary-izxmusj stool softener, such as Colace and/or Senokot, along with the pain medication to help lessen constipation. Call office or go to ED for pain not controlled with medication, headache, chest pain, shortness of breath, fever, chills, persistent nausea or vomiting, severe abdominal pain, heavy vaginal bleeding >2 pads/hour, foul vaginal discharge or odor, any redness near incision, severe pain, pus or drainage from incision site, or problems with your breasts. Patient Instructions: Antibiotic Form Stand Alone Forms: General Discharge Information Follow-up/Referrals: Monica Smith MD [Physician] - Discharge Medications: New hydrocodone-acetaminophen 5-325 mg Tablet 1 - 2 tablet PO Q4-6H PRN (Reason: Moderate Pain (4-6)) Qty: 30 RF: 0 Continued prenat.vits,shoshana,[id number] Tablet 1 tablet PO DAILY RF: 0 Date of admission: 10/23/20 06:05 Primary Care Provider: Diana,Sterling K. Admitting Provider: Monica Smith Attending physician on admission: Monica Smith Condition: Stable
[2020-10-26 09:35] VITALS: BP 115/69; PULSE 94; RESP 18; TEMP 37.1; O2SAT 100
[2020-10-26] MEDS: HYDROcodone/acetaminophen (*CRX) 5-325 MG TABLET 1 TAB PO (09:51)
[2020-10-26] MEDS: IBUPROFEN 600 MG TABLET PO (09:51)
[2020-10-26] MEDS: MULTIVIT/MIN/PREN/FOL AC/IRON TABLET 1 TAB PO (09:51)
[2020-10-26] MEDS: POLYSACCHARIDE IRON COMPLEX 150 MG CAPSULE PO (09:51)
[2020-10-26 11:12] VITALS: PULSE 75; RESP 16; O2SAT 99
[2020-10-29 10:21] VITALS: BP 116/69; PULSE 72; RESP 20; TEMP 37.3; O2SAT 100
== END 2020-10-26 15:35 | disposition home or self-care (01) | DRG 540 ==
LOC: ANHLDR 06:08 → ANHOB2 10-24 05:13
PROVIDERS: Admitting Provider Student in an Organized Health Care Education/Training Program; PCP Internal Medicine; Visit Provider Student in an Organized Health Care Education/Training Program
PROC: 10D00Z1 Extraction of Products of Conception, Low, Open Approach (ICD-10-PCS; CPT 59514; principal; 2020-10-24 01:15)
DX: O99.824 Streptococcus B carrier state complicating childbirth (principal); Z37.0 Single live birth; Z3A.39 39 weeks gestation of pregnancy; O99.344 Other mental disorders complicating childbirth; F41.9 Anxiety disorder, unspecified; O36.8330 Maternal care for abnormalities of the fetal heart rate or rhythm, third trimester, not applicable or unspecified; O75.81 Maternal exhaustion complicating labor and delivery; O62.1 Secondary uterine inertia
CPT/HCPCS: 36415; 85025; 86592; 86850; 86900; 86901; A9270; J0290; J0690; J1200; J2274; J2370; J2405; J2590; J2795; J7120

== ENCOUNTER 2021-09-30 10:14 | Outpatient (CLI) | payer BC, SELFPAY ==
[2021-09-30 10:43] LABS: Basophils Absolute Auto 0.1 K/mm3 (0.0-0.1); Basophils Percent Auto 1.8 % (0.2-1.2); Eosinophils Absolute Auto 0.1 K/mm3 (0-0.3); Eosinophils Percent Auto 1.8 % (0-4.4); Hematocrit 44.9 % (37.0-47.0); Hemoglobin 14.9 g/dL (12.0-15.0); Immature Granulocyte Absolute 0.01 K/mm3 (0.00-0.031); Immature Granulocyte Percent A 0.3 % (0-0.5); Lymphocytes Absolute Auto 1.08 K/mm3 (0.9-3.2); Lymphocytes Percent Auto 28.2 % (18.3-44.2); Mean Corpuscular HGB Conc 33.2 g/dl (32-36); Mean Corpuscular Hemoglobin 30.2 pg (26-34); Mean Corpuscular Volume 91.1 fl (80-100); Mean Platelet Volume 10.7 fl (7.4-10.4); Monocytes Absolute Auto 0.4 K/mm3 (0.1-0.6); Monocytes Percent Auto 9.9 % (2.6-8.5); Neutrophils Absolute Auto 2.2 K/mm3 (1.3-6.7); Platelet Count Result 271 k/mm3 (150-375); Red Blood Count 4.93 M/mm3 (4.2-5.4); Red Cell Distribution Width 12.6 % (11.5-14.5); White Blood Count 3.8 K/mm3 (4.5-10.0)
[2021-09-30 11:19] LABS: Vitamin D 25 Hydroxy 47.6 ng/mL
[2021-09-30 11:36] LABS: Alanine Aminotransferase 14 U/L (6-35); Albumin Level 4.8 g/dL (3.5-5.1); Alkaline Phosphatase 92 U/L (38-126); Anion Gap 8 mmol/L (8-16); Aspartate Amino Transferase 24 U/L (14-36); Bilirubin,Total 0.5 mg/dL (0.2-1.3); Blood Urea Nitrogen 9 mg/dL (7-17); Calcium 9.1 mg/dL (8.4-10.2); Carbon Dioxide 26 mmol/L (22-30); Chloride 106 mmol/L (98-107); Estimated Glomerular Filt Rate > 60; Glucose 93 mg/dL (65-110); Sodium 140 mmol/L (137-145)
== END 2021-09-30 10:15 | disposition home or self-care (01) ==
LOC: ANHLAB 10:16
PROVIDERS: PCP Internal Medicine; Visit Provider Internal Medicine
DX: R53.83 Other fatigue (principal)
CPT/HCPCS: 36415; 80053; 82306; 84443; 85025

== ENCOUNTER 2022-05-15 16:36 | Emergency (ER) | payer BC, SELFPAY ==
[2022-05-15 16:48] VITALS: BP 128/75; PULSE 88; RESP 18; TEMP 36.9; O2SAT 100
--- NOTE | 2022-05-15 20:28 | PC.NURSE ---
pt called via cell phone x2 as well as for triage x2 no answer.
== END 2022-05-15 20:41 | disposition left against medical advice (07) ==
PROVIDERS: PCP Internal Medicine
DX: S61.431A Puncture wound without foreign body of right hand, initial encounter (principal)
CPT/HCPCS: 99199

== ENCOUNTER 2022-08-22 09:09 | Outpatient (CLI) | payer OTHER, SELFPAY ==
[2022-08-22 10:32] LABS: Basophils Percent Auto 0.7 % (0.2-1.2); Eosinophils Percent Auto 0.5 % (0-4.4); Hemoglobin 13.4 g/dL (12.0-15.0); Immature Granulocyte Absolute 0.02 K/mm3 (0.00-0.031); Immature Granulocyte Percent A 0.3 % (0-0.5); Lymphocytes Absolute Auto 0.98 K/mm3 (0.9-3.2); Lymphocytes Percent Auto 16.4 % (18.3-44.2); Mean Corpuscular HGB Conc 33.5 g/dl (32-36); Mean Corpuscular Hemoglobin 30.7 pg (26-34); Mean Corpuscular Volume 91.7 fl (80-100); Mean Platelet Volume 11.1 fl (7.4-10.4); Monocytes Absolute Auto 0.4 K/mm3 (0.1-0.6); Monocytes Percent Auto 6.8 % (2.6-8.5); Neutrophils Absolute Auto 4.5 K/mm3 (1.3-6.7); Neutrophils Percent Auto 75.3 % (45.5-73.1); Platelet Count Result 260 k/mm3 (150-375); Red Blood Count 4.36 M/mm3 (4.2-5.4); Red Cell Distribution Width 13.5 % (11.5-14.5)
[2022-08-22 11:09] LABS: Vitamin D 25 Hydroxy 37.2 ng/mL
[2022-08-22 11:22] LABS: HIV 1/2 Ab P24 Ag Result Negative (Negative); Rapid Plasma Reagin Non-Reactive (NonReactive)
[2022-08-22 11:35] LABS: Hepatitis B Surface Antigen Negative (Negative); Rubella IgG Antibody 24.7 IU/ML
[2022-08-22 11:40] LABS: Hepatitis C Virus Antibody Negative (Negative)
== END 2022-08-22 09:10 | disposition home or self-care (01) ==
PROVIDERS: PCP Internal Medicine; Visit Provider Registered Nurse
DX: Z34.90 Encounter for supervision of normal pregnancy, unspecified, unspecified trimester (principal)
CPT/HCPCS: 36415; 82306; 84443; 85025; 86592; 86703; 86762; 86787; 86803; 86850; 86900; 86901; 87086; 87088; 87340; G0432

== ENCOUNTER 2022-10-06 15:05 | Emergency (ER) | payer OTHER, SELFPAY ==
[2022-10-06 15:08] VITALS: BP 105/59; PULSE 94; RESP 18; TEMP 37.1; O2SAT 100
--- NOTE | 2022-10-06 16:09 | ED.GENADULT ---
HPI - General Adult General Chief complaint: Skin/Abscess/Foreign Body <Ez Eastman PA-C - Last Filed: 10/06/22 19:07> Stated complaint: spider bite, abx not helping <Ez Eastman PA-C - Last Filed: 10/06/22 19:07> Time Seen by Provider: 10/06/22 15:26 <Ez Eastman PA-C - Last Filed: 10/06/22 19:07> Source: patient <Ez Eastman PA-C - Last Filed: 10/06/22 19:07> Mode of arrival: ambulatory <SUN Alan Last Filed: 10/06/22 19:07> Limitations: no limitations <Ez Eastman PA-C - Last Filed: 10/06/22 19:07> History of Present Illness HPI narrative: This is a 27-year-old female who is 23 weeks and presents for chief complaint of left upper extremity cellulitis that has worsened over the course of 2 days. Patient states she was bit by a brown recluse Thursday morning so initial diagnosis was made 2 days ago and she was started on Keflex that same day. States she has been taking the Keflex as prescribed but the redness has spread beyond her skin marker so she is coming back in. She reports pain is relatively the same. Denies any fevers, chills, nausea, vomiting. States she feels fine otherwise. <Ez Eastman PA-C - Last Filed: 10/06/22 19:07> Related Data Home medications: Home Medications Medication Instructions Recorded Confirmed prenat.vits,shoshana,[id number] 1 tablet PO DAILY 07/05/21 <Ez Eastman PA-C - Last Filed: 10/06/22 19:07> Allergies/adverse reactions: Allergies Allergy/AdvReac Type Severity Reaction Status Date / Time menthol Allergy Unknown Rash Verified 10/06/22 15:12 <SUN Alan Last Filed: 10/06/22 19:07> [facility] Past Medical History Medical History: Medical History Anxiety Delivery by section using low vertical uterine incision <Ez Eastman PA-C - Last Filed: 10/06/22 19:07> Surgical History Surgical History: Surgical History H/O breast biopsy 2020 History of tonsillectomy [place] teeth removed <Ez Eastman PA-C - Last Filed: 10/06/22 19:07> Family History Family History: Family History Grandparent Breast cancer Cerebrovascular accident Other Acute myocardial infarction <SUN Alan Last Filed: 10/06/22 19:07> Social History Social History: Social History Smoking status: Never smoker Second hand tobacco smoke exposure: Yes Alcohol intake: former Alcohol use details: Not since Substance use: never Lack of Transportation: No Lack of Food: Never True Current Housing: I Have Housing Concerned About Future Housing: No Difficulty Paying Gas/Electric Bills: No Difficulty Paying for Meds: No Currently Unemployed: No Education: Trade/Vocational Certificate Difficulty w/ Childcare or Family Care: No Living arrangements: with family Occupation/Education: student Gender identity (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 by the patient): Female Sexual Orientation (if Verbalized by the Patient): Straight or Heterosexual Spiritual care concerns: No <Ez Eastman PA-C - Last Filed: 10/06/22 19:07> Exam Narrative: GENERAL: Well-appearing, well-nourished, and in no acute distress. HEAD: Normocephalic, atraumatic. EYES: PERRLA and EOMI. ENT: Nares clear, no rhinorrhea or epistaxis. Mucous membranes moist. Oropharynx without tonsillar hypertrophy exudate or other lesions. NECK: Supple. No adenopathy or masses. CHEST: No respiratory distress. Clear to auscultation. No wheezes rales or rhonchi HEART: Regular rate and rhythm. No murmur heard. Normal peripheral pulses. ABDOMEN: Gravid abdomen. Soft, nontender, nondistended, normal active bowel sounds. MSK: Normal range of motion. No edema.
== END 2022-10-06 17:31 | disposition home or self-care (01) ==
PROVIDERS: Emergency Provider Physician Assistant; PCP Internal Medicine
DX: O26.892 Other specified pregnancy related conditions, second trimester (principal); S40.862A Insect bite (nonvenomous) of left upper arm, initial encounter; L03.114 Cellulitis of left upper limb; W57.XXXA Bitten or stung by nonvenomous insect and other nonvenomous arthropods, initial encounter
CPT/HCPCS: 99283

== ENCOUNTER 2022-10-07 21:34 | Inpatient (IN) | payer OTHER, SELFPAY ==
[2022-10-07 21:37] VITALS: BP 114/70; PULSE 76; RESP 16; TEMP 37; O2SAT 100
--- NOTE | 2022-10-07 23:56 | ED.SKABFB ---
HPI - Skin/Abscess/Foreign Bdy General Chief complaint: Skin/Abscess/Foreign Body <Zulema Culp PA-C - Last Filed: 10/08/22 03:37> Stated complaint: brown recluse bite <Zulema Culp PA-C - Last Filed: 10/08/22 03:37> Time Seen by Provider: 10/07/22 23:31 <Zulema Culp PA-C - Last Filed: 10/08/22 03:37> History of Present Illness HPI narrative: 27-year-old female, , currently 23 weeks reports for evaluation of cellulitis to her left upper extremity x3 days. Patient states approximately 3 days ago, she felt discomfort in her left upper arm while she was sleeping, woke up and noticed redness with a central punctum. States she went to urgent care, diagnosed with cellulitis and assumed brown recluse bite, and started on Keflex. She reports taking Keflex for 3 days as directed, however the redness continued to spread. She came to the ED yesterday for reevaluation, d/c keflex and started clindamycin. She had 3 doses of clindamycin when she notices an itchy rash to her abdomen and back. She also reports continuing spreading of the redness to her LUE with associated pain. Denies fever, body aches, chills, n/v, drainage. Denies abdominal pain, vaginal bleeding. Reports normal movement, no complications with . OBGYN is Dr. Gresham. <Zulema Culp PA-C - Last Filed: 10/08/22 03:37> Related Data Home medications: Home Medications Medication Instructions Recorded Confirmed prenat.vits,shoshana,[id number] 1 tablet PO DAILY 07/05/21 10/08/22 <Zulema Culp PA-C - Last Filed: 10/08/22 03:37> Allergies/Adverse reactions: Allergies Allergy/AdvReac Type Severity Reaction Status Date / Time menthol Allergy Unknown Rash Verified 10/07/22 21:40 clindamycin Allergy Rash Verified 10/08/22 03:36 <Zulema Culp PA-C - Last Filed: 10/08/22 03:37> Review of Systems Review of Systems: CONSTITUTIONAL: Denies fever, chills EYES: Denies visual changes, redness, or discharge. ENT: Denies rhinorrhea, congestion, sore throat, or otalgia. CARDIOVASCULAR: Denies chest pain, palpitations, or edema. RESPIRATORY: Denies cough or dyspnea. GASTROINTESTINAL: Denies abdominal pain, nausea, vomiting, or diarrhea. GENITOURINARY: Denies dysuria or hematuria. SKIN: See HPI MUSCULOSKELETAL: Denies back pain, joint pain, or myalgia. NEUROLOGIC: Denies headache, numbness, dizziness, or weakness. PSYCHIATRIC: Denies anxiety or depression. <Zulema Culp PA-C - Last Filed: 10/08/22 03:37> [facility] Past Medical History Medical History: Medical History Anxiety Delivery by section using low vertical uterine incision <Zulema Culp PA-C - Last Filed: 10/08/22 03:37> Surgical History Surgical History: Surgical History H/O breast biopsy 2020 History of tonsillectomy [place] teeth removed <Zulema Culp PA-C - Last Filed: 10/08/22 03:37> Family History Family History: Family History Grandparent Breast cancer Cerebrovascular accident Other Acute myocardial infarction <Zulema Culp PA-C - Last Filed: 10/08/22 03:37> Social History Social History: Social History Smoking status: Never smoker Second hand tobacco smoke exposure: Yes Alcohol intake: former Alcohol use details: Not since Substance use: never Lack of Transportation: No Lack of Food: Never True Current Housing: I Have Housing Concerned About Future Housing: No Difficulty Paying Gas/Electric Bills: No Difficulty Paying for Meds: No Currently Unemployed: No Education: Trade/Vocational Certificate Difficulty w/ Childcare or Family Care: No Living arrangements: with family Occupation/Education:
[2022-10-08 01:13] LABS: Basophils Percent Auto 0.5 % (0.2-1.2); Eosinophils Absolute Auto 0.1 K/mm3 (0-0.3); Eosinophils Percent Auto 1.4 % (0-4.4); Hematocrit 34.5 % (37.0-47.0); Hemoglobin 11.6 g/dL (12.0-15.0); Immature Granulocyte Absolute 0.06 K/mm3 (0.00-0.031); Immature Granulocyte Percent A 0.7 % (0-0.5); Lymphocytes Absolute Auto 1.22 K/mm3 (0.9-3.2); Lymphocytes Percent Auto 14.6 % (18.3-44.2); Mean Corpuscular HGB Conc 33.6 g/dl (32-36); Mean Corpuscular Hemoglobin 31.5 pg (26-34); Mean Corpuscular Volume 93.8 fl (80-100); Mean Platelet Volume 11.1 fl (7.4-10.4); Monocytes Absolute Auto 0.8 K/mm3 (0.1-0.6); Monocytes Percent Auto 9.1 % (2.6-8.5); Neutrophils Absolute Auto 6.2 K/mm3 (1.3-6.7); Neutrophils Percent Auto 73.7 % (45.5-73.1); Platelet Count Result 246 k/mm3 (150-375); Red Blood Count 3.68 M/mm3 (4.2-5.4); White Blood Count 8.4 K/mm3 (4.5-10.0)
[2022-10-08 01:25] LABS: Alanine Aminotransferase 17 U/L (6-35); Alkaline Phosphatase 82 U/L (38-126); Anion Gap 6 mmol/L (8-16); Aspartate Amino Transferase 25 U/L (14-36); Bilirubin,Total 0.5 mg/dL (0.2-1.3); Blood Urea Nitrogen 7 mg/dL (7-17); Calcium 8.8 mg/dL (8.4-10.2); Carbon Dioxide 24 mmol/L (22-30); Chloride 104 mmol/L (98-107); Estimated CRCL calculation 146 ml/min; Estimated Glomerular Filt Rate > 60; Glucose 78 mg/dL (65-110); Potassium 3.5 mmol/L (3.4-5.0); Sodium 134 mmol/L (137-145)
[2022-10-08] MEDS: SODIUM CHLORIDE 0.9% IV 1,000 ML 999 ML IV CONT (01:27)
[2022-10-08] MEDS: ACETAMINOPHEN 325 MG TABLET 650 MG PO ×2 (01:29→13:42)
[2022-10-08] MEDS: ceFAZolin 1 GM/NS 50 ML 1 GM/50 ML BAG IVPB ×3 (01:31→16:44)
[2022-10-08] MEDS: diphenhydrAMINE HCl INJ 50 MG/ML VIAL 25 MG IV PUSH (01:33)
[2022-10-08 03:20] VITALS: BP 98/61; PULSE 66; RESP 16; TEMP 36.4; O2SAT 100; BMI 29.2
--- NOTE | 2022-10-08 03:34 | ADMGEN ---
This patient, Lisbet Vasquez, was admitted to Medical Room 241-. Patient/family oriented to hospital policies and general routines including ID bracelet, bed and alarms, visiting hours, pain management, procedures, bathroom and other care routines, personal items, smoking policy, room service/diet, and visiting hours. Information on how to activate the Rapid Response Team has been discussed. Patient/Family are encouraged to report perceived risks to care and to ask questions if they do not understand what they are told or what they should do.
[2022-10-08 06:16] VITALS: BP 91/58; PULSE 65; RESP 16; TEMP 37.2; O2SAT 97
[2022-10-08 08:55] VITALS: PULSE 71; O2SAT 97
[2022-10-08] MEDS: diphenhydrAMINE HCl CAP 25 MG CAPSULE 50 MG PO ×2 (11:04→22:46)
--- NOTE | 2022-10-08 12:09 | PM.IMHP ---
H&P: HPI History of Present Illness Date/Time: 10/08/22 12:09 Chief Complaint: Cellulitis Narrative: Patient is at 23 weeks. She was admitted through the ER due to a cellulitis after an insect bite which did not respond to oral clindamycin. She stated she was bit by a brown recluse not certain if she did see the spider. Pain is controlled with Tylenol. Reports positive movement denies any spotting. course uncomplicated she does have a history of a prior . Denies chills or fevers. She states that she noticed the small pustule at the site today. Review of Systems Constitutional: Constitutional: Reports as per HPI Eyes: Eyes: Reports no additional eye complaints ENT: Reports system reviewed and no additional complaints, except as documented Cardiovascular: Cardiovascular: Reports no additional cardiovascular complaints Respiratory: Respiratory: Reports no additional respiratory complaints Gastrointestinal: Gastrointestinal: Reports no additional gastrointestinal complaints Genitourinary: Genitourinary: Reports no additional female genitourinary complaints Musculoskeletal: Musculoskeletal: Reports as per HPI Integumentary/Breasts: Skin/Breast: Reports as per HPI Psychiatric: Psychiatric: Reports no additional psychiatric complaints [facility] Past Medical History Medical History Anxiety Delivery by section using low vertical uterine incision Surgical History Surgical History H/O breast biopsy 2020 History of tonsillectomy [place] teeth removed Family History Family History Grandparent Breast cancer Cerebrovascular accident Other Acute myocardial infarction Social History Social History Smoking status: Never smoker Second hand tobacco smoke exposure: Yes Alcohol intake: former Alcohol use details: Not since Substance use: never Lack of Transportation: No Lack of Food: Never True Current Housing: I Have Housing Concerned About Future Housing: No Difficulty Paying Gas/Electric Bills: No Difficulty Paying for Meds: No Currently Unemployed: No Education: Trade/Vocational Certificate Difficulty w/ Childcare or Family Care: No Living arrangements: with family Occupation/Education: student Gender identity (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 by the patient): Female Sexual Orientation (if Verbalized by the Patient): Straight or Heterosexual Spiritual care concerns: No Meds Home Medications and Allergies Home Medications Medication Instructions Recorded Confirmed Type prenat.vits,shoshana,[id number] 1 tablet PO DAILY 07/05/21 10/08/22 History clindamycin HCl 300 mg capsule 300 mg PO Q8H #21 caps 10/06/22 10/08/22 Rx Allergies Allergy/AdvReac Type Severity Reaction Status Date / Time menthol Allergy Unknown Rash Verified 10/07/22 21:40 clindamycin Allergy Rash Verified 10/08/22 03:36 Vital Signs Vital Signs - 24 hr 10/07/22 21:37 10/08/22 03:20 10/08/22 06:16 Temperature 98.6 F 97.6 F 98.9 F Pulse Rate 76 66 65 Respiratory Rate 16 16 16 Blood Pressure 114/70 98/61 L 91/58 L Pulse Oximetry 100 100 97 Oxygen Delivery Room Air 10/08/22 08:55 10/08/22 08:00 Temperature Pulse Rate 71 Respiratory Rate Blood Pressure Pulse Oximetry 97 Oxygen Delivery Room Air Room Air Exam Const: General: comfortable and no acute distress Eyes: General: appearance normal, both eyes and all related structures Resp: Effort & Inspection: normal respiratory effort GI: Other: Gravid nontender heart tones 154 Skin: Other: Left upper arm diffuse erythematous, warmth, mild tender, there is some clearing superiorly from marked area there is some extension of erythema inferior to the marked are
--- NOTE | 2022-10-08 13:13 | P.PNINF_ITS ---
Pharmacy ID Consult - Stewardship Interventions Type of Interventions: Other (Empiric Therapy) Pharmacy ID Note: Subjective Pharmacy was consulted by Ziggy Gresham regarding infectious diseases for Lisbet Vasquez. Lisbet Vasquez is a 27 year old F with concerns regarding cellulit is/supposed spider bite. Background The patient is currently receiving cefazolin (Today will be the first full day of therapy). The patient's PMH includes 23 weeks into , and has had cellulitis after insect bite per provider note and this has not responded to oral clindamycin. Additionally, small pustule was noted at the site today. No Leukocytosis noted from AM labs. Assessment/Recommendation/Discussion Briefly spoke with consulting provider and appears that the redness after very brief exposure to parenteral antibiotics is showing some spread beyond demarcated margin and some remittance elsewhere. Given purulence, recommended the addition of vancomycin for this cellulitis. Can consider de-escalation to oral as patient condition improves. Given recent clindamycin failure and noted Rash to clindamycin as an allergy in the chart, could utilize a combination of sulfamethoxazole-trimethoprim and amoxicillin to cover MRSA and streptococcus if appropriate per consulting provider. Will continue to follow peripherally and may reach out if recommendations change. Consider reaching out if needed. Defer all spider bite component to provider. Thank you for the interesting consult. Keyshawn Booker, PharmD Infectious Disease/Antimicrobial Stewardship Pharmacist 10/08/22; 1313 WBC 8.4 K/mm3 (4.5-10.0) 10/08/22 01:03 Creatinine 0.40 mg/dL (0.7-1.0) L 10/08/22 01:03 Estim Creat Clear Calc 146 ml/min 10/08/22 01:03
[2022-10-08 13:30] VITALS: BP 94/45; PULSE 67; RESP 17; TEMP 37; O2SAT 98
[2022-10-08] MEDS: VANCOMYCIN 1,250 MG/NS 250 ML 1,250 MG/250 ML BAG 166.67 MG IVPB (13:37)
--- NOTE | 2022-10-08 17:56 | PM.IMCN ---
Assessment and Plan Assessment and plan (1) Cellulitis: Code(s): L03.90 - Cellulitis, unspecified Status: Acute Plan ED-HPI narrative: ? ? ? 27-year-old female, , currently 23 weeks reports for evaluation of cellulitis to her left upper extremity x3 days.? Patient states approximately 3 days ago, she felt discomfort in her left upper arm while she was sleeping, woke up and noticed redness with a central punctum.? States she went to urgent care, diagnosed with cellulitis and assumed brown recluse bite, and started on Keflex.? She reports taking Keflex for 3 days as directed, however the redness continued to spread. She came to the ED yesterday for reevaluation, d/c keflex and started clindamycin. She had 3 doses of clindamycin when she notices an itchy rash to her abdomen and back. She also reports continuing spreading of the redness to her LUE with associated pain. Denies fever, body aches, chills, n/v, drainage. Denies abdominal pain, vaginal bleeding. Reports normal movement, no complications with . OBGYN is Dr. Gresham.? patient is 27 y/o female 23 weeks presented to ER with c/o redness, swelling and pain along left upper arm, stats she she suspect was bitten by a spider, patient is found to have cellulitis along anterior aspect of the arm, patient was treated with clindamcin as an outpatient and her symptoms did not improve, in ER patient was started on cefazolin and ID pharmacy recommended to add vancomcine to cover for MRSA, patent is is managed by Dr. Gresham, SOFTWARE ENGINEER DEVELOPER and consulted us for medical management and we thank you. Patient clinical symptoms are improved will continue present management Patient stats pain and swelling is better compared to when she arrived, and there is no lump or drainage. patient denies any fever or chills, patient parents are present in the room. HPI Data of Consult Consult date: 10/09/22 Requesting Physician: Ulices Morin MD Primary Care Provider: Sterling Ortiz, Consult Narrative Narrative: Lisbet Vasquez is a 27 year old female ED-HPI narrative: ? ? ? 27-year-old female, , currently 23 weeks reports for evaluation of cellulitis to her left upper extremity x3 days.? Patient states approximately 3 days ago, she felt discomfort in her left upper arm while she was sleeping, woke up and noticed redness with a central punctum.? States she went to urgent care, diagnosed with cellulitis and assumed brown recluse bite, and started on Keflex.? She reports taking Keflex for 3 days as directed, however the redness continued to spread. She came to the ED yesterday for reevaluation, d/c keflex and started clindamycin. She had 3 doses of clindamycin when she notices an itchy rash to her abdomen and back. She also reports continuing spreading of the redness to her LUE with associated pain. Denies fever, body aches, chills, n/v, drainage. Denies abdominal pain, vaginal bleeding. Reports normal movement, no complications with . OBGYN is Dr. Gresham.? patient is 27 y/o female 23 weeks presented to ER with c/o redness, swelling and pain along left upper arm, stats she she suspect was bitten by a spider, patient is found to have cellulitis along anterior aspect of the arm, patient was treated with clindamcin as an outpatient and her symptoms did not improve, in ER patient was started on cefazolin and ID pharmacy recommended to add vancomcine to cover for MRSA, patent is is managed by Dr. Gresham, SOFTWARE ENGINEER DEVELOPER and consulted us for medical management and we thank you. Patient clinical symptoms are improved will continue present management Patient stats pain and swelling is better compared to when she arrived, and there is no lump or drainage. patient denies any fever or chills, patient parents are present in the room. Review of Systems Constitutional: Constitutional: Reports as per HPI [facility] Past Medical History Med
[2022-10-08 21:11] VITALS: BP 109/58; PULSE 83; RESP 16; TEMP 36.7; O2SAT 97
[2022-10-09] MEDS: ceFAZolin 1 GM/NS 50 ML 1 GM/50 ML BAG IVPB ×3 (00:13→17:15)
[2022-10-09] MEDS: VANCOMYCIN 1,250 MG/NS 250 ML 1,250 MG/250 ML BAG 167 MG IVPB ×2 (00:43→14:04)
[2022-10-09 05:33] VITALS: BP 97/53; PULSE 74; RESP 16; TEMP 36.8; O2SAT 97
[2022-10-09 05:40] LABS: Hematocrit 34.2 % (37.0-47.0); Hemoglobin 11.3 g/dL (12.0-15.0); Mean Platelet Volume 11.1 fl (7.4-10.4); Platelet Count Result 240 k/mm3 (150-375); Red Blood Count 3.64 M/mm3 (4.2-5.4); White Blood Count 7.1 K/mm3 (4.5-10.0)
[2022-10-09 05:50] LABS: Estimated CRCL calculation 121 ml/min; Estimated Glomerular Filt Rate > 60
[2022-10-09] MEDS: MULTIVIT/MIN/PREN/FOL AC/IRON TABLET 1 TAB PO (08:43)
--- NOTE | 2022-10-09 11:53 | WPDPN ---
Progress Note: A&P Assessment and Plan (1) Cellulitis: Code(s): L03.90 - Cellulitis, unspecified Status: Acute Plan ED-HPI narrative: ? ? ? 27-year-old female, , currently 23 weeks reports for evaluation of cellulitis to her left upper extremity x3 days.? Patient states approximately 3 days ago, she felt discomfort in her left upper arm while she was sleeping, woke up and noticed redness with a central punctum.? States she went to urgent care, diagnosed with cellulitis and assumed brown recluse bite, and started on Keflex.? She reports taking Keflex for 3 days as directed, however the redness continued to spread. She came to the ED yesterday for reevaluation, d/c keflex and started clindamycin. She had 3 doses of clindamycin when she notices an itchy rash to her abdomen and back. She also reports continuing spreading of the redness to her LUE with associated pain. Denies fever, body aches, chills, n/v, drainage. Denies abdominal pain, vaginal bleeding. Reports normal movement, no complications with . OBGYN is Dr. Gresham.? patient is 27 y/o female 23 weeks presented to ER with c/o redness, swelling and pain along left upper arm, stats she she suspect was bitten by a spider, patient is found to have cellulitis along anterior aspect of the arm, patient was treated with clindamcin as an outpatient and her symptoms did not improve, in ER patient was started on cefazolin and ID pharmacy recommended to add vancomcine to cover for MRSA, patent is is managed by Dr. Gresham, WARP HAND and consulted us for medical management and we thank you. Patient clinical symptoms are improved will continue present management 10/09/2022 interval histroy: there appeare some intensity in the erythema but it has not crossed the demarcate line, Patient stats pain and swelling is better compared to when she arrived, and there is no lump or drainage. patient denies any fever or chills, will CPM and patient will benefit getting Subjective Date/time seen: 10/09/22 11:53 Interval history: ED-HPI narrative: ? ? ? 27-year-old female, , currently 23 weeks reports for evaluation of cellulitis to her left upper extremity x3 days.? Patient states approximately 3 days ago, she felt discomfort in her left upper arm while she was sleeping, woke up and noticed redness with a central punctum.? States she went to urgent care, diagnosed with cellulitis and assumed brown recluse bite, and started on Keflex.? She reports taking Keflex for 3 days as directed, however the redness continued to spread. She came to the ED yesterday for reevaluation, d/c keflex and started clindamycin. She had 3 doses of clindamycin when she notices an itchy rash to her abdomen and back. She also reports continuing spreading of the redness to her LUE with associated pain. Denies fever, body aches, chills, n/v, drainage. Denies abdominal pain, vaginal bleeding. Reports normal movement, no complications with . OBGYN is Dr. Gresham.? patient is 27 y/o female 23 weeks presented to ER with c/o redness, swelling and pain along left upper arm, stats she she suspect was bitten by a spider, patient is found to have cellulitis along anterior aspect of the arm, patient was treated with clindamcin as an outpatient and her symptoms did not improve, in ER patient was started on cefazolin and ID pharmacy recommended to add vancomcine to cover for MRSA, patent is is managed by Dr. Gresham, WARP HAND and consulted us for medical management and we thank you. Patient clinical symptoms are improved will continue present management 10/09/2022 interval histroy: there appeare some intensity in the erythema but it has not crossed the demarcate line, Patient stats pain and swelling is better compared to when she arrived, and there is no lump or drainage. patient denies any fever or chills, will CPM and patient will benefit getting Review of Systems Constit
--- NOTE | 2022-10-09 13:25 | PM.GYNPNOP ---
MACHINIST APPRENTICE - A/P Assessment and plan (1) Cellulitis: Code(s): L03.90 - Cellulitis, unspecified Status: Acute Assessment and Plan: 27-year-old female admitted for worsening cellulitis of her left upper extremity Suspect cellulitis from a spider bite Patient was initially treated with clindamycin and had allergic reaction Erythema had noted to spread was admitted for IV antibiotic therapy Management per hospitalist and Infectious Disease pharmacy team. Appreciate recommendations Patient currently receiving Ancef and vancomycin patient reports feeling better today. Left upper arm still erythematous. Cellulitis relatively unchanged from yesterday No leukocytosis on CBC Will continue to monitor peripherally Management per hospitalist team (2) Supervision of high risk , unspecified, unspecified trimester: Code(s): O09.90 - Supervision of high risk , unspecified, unspecified trimester Status: Acute Assessment and Plan: 23 weeks gestational age Patient reports good movement Patient denies any obstetric concerns today Will continue daily heart tones per L and D team Time Spent With Patient Time: Total time spent is greater than 50% in coordination of care (as documented) at patient's floor/unit and/or counseling patient: Time with patient: less than 15 minutes MACHINIST APPRENTICE- PN:Subj Post-Op Subjective Date/time seen: 10/09/22 13:25 Interval history: 27-year-old female who presents at 23 weeks for management of upper extremity cellulitis. patient was admitted overnight for management via IV antibiotics. Patient states she feels better today. Area of erythema on her arm relatively unchanged relative to area of demarcation. Patient denies any fevers, chills, nausea, vomiting. Patient has been taking Benadryl for itching. Patient states pain is controlled by acetaminophen. Patient reports good movement. She denies any obstetric concerns today. Review of Systems Review of Systems: All systems reviewed & are unremarkable except as noted in HPI and below Exam Const: General: cooperative, comfortable and no acute distress Resp: Effort & Inspection: normal respiratory effort and able to speak in complete sentences Cardio: Rate: regular rate GI: GI Palp: No abdominal tenderness and Yes Soft to palpation Skin: General skin exam: erythema ( Left upper extremity) Lesions: lesion noted left upper upper arm MACHINIST APPRENTICE - PN: Obj Data Vital Signs Vital Signs: Vital Signs - 24 hr 10/08/22 13:30 10/08/22 21:11 10/09/22 05:33 Temperature 98.6 F 98.1 F 98.2 F Pulse Rate 67 83 74 Respiratory Rate 17 16 16 Blood Pressure 94/45 L 109/58 L 97/53 L Pulse Oximetry 98 97 97 Oxygen Delivery 10/09/22 08:00 Temperature Pulse Rate Respiratory Rate Blood Pressure Pulse Oximetry Oxygen Delivery Room Air Intake/Output Intake/Output: Intake & Output 10/06/22 10/07/22 10/08/22 10/09/22 23:59 23:59 23:59 23:59 Intake Total 1840 1100 Balance 1840 1100 Meds/Results Medications: Active Medications Generic Name Dose Route Start Last Admin Trade Name Freq PRN Reason Stop Dose Admin Acetaminophen 650 mg 10/08/22 01:50 10/08/22 13:42 Acetaminophen 325 Mg Tablet PO 650 mg Q4H PRN Administration Mild Pain (1-3) or Fever Diphenhydramine HCl 50 mg 10/08/22 10:38 10/08/22 22:46 Diphenhydramine Hcl Cap 25 Mg Capsule PO 50 mg Q6H PRN Administration Itching Cefazolin Sodium 1 gm in 50 mls @ 100 mls/hr 10/08/22 09:00 10/09/22 08:43 Ancef 1 Gm/Ns 50 Ml IVPB 100 mls/hr Q8H ANA Administration Vancomycin HCl 1,250 mg in 250 mls @ 166.667 mls/hr 10/08/22 14:00 10/09/22 02:13 Vancomycin 1,250 Mg/Ns 250 Ml IVPB Infused Q12H ANA Infusion Vit/Calcium/Iron/Folic Ac 1 tab 10/09/22 09:00 10/09/22 08:43 Multivit/Min/Pren/Fol Ac/Iron Tablet PO 1 tab DAILY ANA Administration
[2022-10-09] MEDS: diphenhydrAMINE HCl CAP 25 MG CAPSULE 50 MG PO (14:07)
[2022-10-09 14:11] VITALS: BP 100/59; PULSE 83; RESP 18; TEMP 36.8; O2SAT 99
[2022-10-09 17:22] LABS: Anion Gap 2 mmol/L (8-16); Blood Urea Nitrogen 7 mg/dL (7-17); Calcium 8.9 mg/dL (8.4-10.2); Carbon Dioxide 25 mmol/L (22-30); Chloride 109 mmol/L (98-107); Estimated CRCL calculation 121 ml/min; Estimated Glomerular Filt Rate > 60; Glucose 78 mg/dL (65-110); Sodium 136 mmol/L (137-145)
[2022-10-09 19:55] VITALS: BP 93/54; PULSE 88; RESP 18; TEMP 37.2; O2SAT 100
[2022-10-10] MEDS: ceFAZolin 1 GM/NS 50 ML 1 GM/50 ML BAG IVPB ×2 (00:13→08:52)
--- NOTE | 2022-10-10 00:45 | PC.NURSE ---
0035 FHT's obtained in left lower quadrant. 148-155.
[2022-10-10 04:05] LABS: Estimated CRCL calculation 147 ml/min; Estimated Glomerular Filt Rate > 60
[2022-10-10 04:10] LABS: Vancomycin Trough < 5.0 ug/mL (10.0-20.0)
[2022-10-10 04:12] LABS: Hematocrit 34.1 % (37.0-47.0); Hemoglobin 11.2 g/dL (12.0-15.0); Mean Corpuscular HGB Conc 32.8 g/dl (32-36); Mean Corpuscular Hemoglobin 30.9 pg (26-34); Mean Corpuscular Volume 94.2 fl (80-100); Mean Platelet Volume 10.7 fl (7.4-10.4); Platelet Count Result 245 k/mm3 (150-375); Red Blood Count 3.62 M/mm3 (4.2-5.4); Red Cell Distribution Width 12.9 % (11.5-14.5); White Blood Count 8.1 K/mm3 (4.5-10.0)
[2022-10-10 04:44] VITALS: BP 98/53; PULSE 73; RESP 18; TEMP 36.1; O2SAT 98
[2022-10-10 04:50] VITALS: BP 98/53; PULSE 73; RESP 18; TEMP 36.1; O2SAT 98
[2022-10-10] MEDS: ACETAMINOPHEN 325 MG TABLET 650 MG PO ×2 (05:06→12:10)
--- NOTE | 2022-10-10 08:10 | PHA.ABX.ID ---
Pharmacy ID Consult - Stewardship Interventions Type of Interventions: Other Pharmacy ID Note: Per provider notes patient arm still erythematous but swelling improving and patient feeling better. Patient currently on cefazolin and vancomycin (~day 3) both intravenous. De-escalation to oral options described below but ultimately defer timing of de-escalation and antibiotic choice per consulting provider and other providers on patient case. Common durations for cellulitis per SSTI guidelines are ~5 days, but do recommend extending duration should the infection not have improved within that time frame. Will continue to follow peripherally for timing of this oral conversion and overall duration as hopefully patient responds to current antibiotics. Please consider reaching out in meant time if needed. Initial note copied below Subjective Pharmacy was consulted by Ziggy Gresham regarding infectious diseases for Lisbet Vasquez. Lisbet Vasquez is a 27 year old F with concerns regarding cellulitis/supposed spider bite. Background The patient is currently receiving cefazolin (Today will be the first full day of therapy). The patient's PMH includes 23 weeks into , and has had cellulitis after insect bite per provider note and this has not responded to oral clindamycin. Additionally, small pustule was noted at the site today. No Leukocytosis noted from AM labs. Assessment/Recommendation/Discussion Briefly spoke with consulting provider and appears that the redness after very brief exposure to parenteral antibiotics is showing some spread beyond demarcated margin and some remittance elsewhere. Given purulence, recommended the addition of vancomycin for this cellulitis. Can consider de-escalation to oral as patient condition improves. Given recent clindamycin failure and noted Rash to clindamycin as an allergy in the chart, could utilize a combination of sulfamethoxazole-trimethoprim and amoxicillin to cover MRSA and streptococcus if appropriate per consulting provider. Will continue to follow peripherally and may reach out if recommendations change. Consider reaching out if needed. Defer all spider bite component to provider. Thank you for the interesting consult. Keyshawn Booker, PharmD Infectious Disease/Antimicrobial Stewardship Pharmacist 10/08/22; 1313 WBC 8.1 K/mm3 (4.5-10.0) 10/10/22 01:28 Creatinine 0.40 mg/dL (0.7-1.0) L 10/10/22 01:23 Estim Creat Clear Calc 147 ml/min 10/10/22 01:23
[2022-10-10] MEDS: MULTIVIT/MIN/PREN/FOL AC/IRON TABLET 1 TAB PO (08:50)
--- NOTE | 2022-10-10 09:45 | PM.IMPN ---
Progress Note: A&P Assessment and Plan (1) Cellulitis: Code(s): L03.90 - Cellulitis, unspecified Status: Acute Plan ED-HPI narrative: ? ? ? 27-year-old female, , currently 23 weeks reports for evaluation of cellulitis to her left upper extremity x3 days.? Patient states approximately 3 days ago, she felt discomfort in her left upper arm while she was sleeping, woke up and noticed redness with a central punctum.? States she went to urgent care, diagnosed with cellulitis and assumed brown recluse bite, and started on Keflex.? She reports taking Keflex for 3 days as directed, however the redness continued to spread. She came to the ED yesterday for reevaluation, d/c keflex and started clindamycin. She had 3 doses of clindamycin when she notices an itchy rash to her abdomen and back. She also reports continuing spreading of the redness to her LUE with associated pain. Denies fever, body aches, chills, n/v, drainage. Denies abdominal pain, vaginal bleeding. Reports normal movement, no complications with . OBGYN is Dr. Gresham.? patient is 27 y/o female 23 weeks presented to ER with c/o redness, swelling and pain along left upper arm, stats she she suspect was bitten by a spider, patient is found to have cellulitis along anterior aspect of the arm, patient was treated with clindamcin as an outpatient and her symptoms did not improve, in ER patient was started on cefazolin and ID pharmacy recommended to add vancomcine to cover for MRSA, patent is is managed by Dr. Gresham, APPLICATION SYSTEMS ARCHITECT and consulted us for medical management and we thank you. Patient clinical symptoms are improved will continue present management 10/09/2022 interval histroy: there appeare some intensity in the erythema but it has not crossed the demarcate line, Patient stats pain and swelling is better compared to when she arrived, and there is no lump or drainage. patient denies any fever or chills, will CPM and patient will benefit getting 10/10/2022: 23 weeks presented with left upper extremity insect bite with days. Initially treated with Keflex with worsening. Resumed brown recluse bite. Rash with clindamycin and stop. Back on cefazolin and vancomycin. Redness has improved. OBGYN on board. Plan to discharge with Bactrim and amoxicillin as suggested ID pharmacist Subjective Date/time seen: 10/10/22 09:45 Interval history: Feeling better. Redness has improved significantly. Would like to go home today. Review of Systems Review of Systems: All systems reviewed & are unremarkable except as noted in HPI and below Exam Narrative: Patient is comfortable, NAD HEENT: eyes are clear and none icteric LUNGS: Normal respiratory effort ABD: Lower extremities: no edema SKIN: nonjaundiced. Left upper arm anterior expect erythematosus, no induration, nonfeculent and no red streaks Neuro: grossly intact. Objective Data Vital Signs Vital Signs: Vital Signs - 24 hr 10/09/22 14:11 10/09/22 19:55 10/10/22 04:50 Temperature 98.2 F 99.0 F 97.0 F L Pulse Rate 83 88 73 Respiratory Rate 18 18 18 Blood Pressure 100/59 L 93/54 L 98/53 L Pulse Oximetry 99 100 98 10/10/22 04:44 Temperature 97 F L Pulse Rate 73 Respiratory Rate 18 Blood Pressure 98/53 L Pulse Oximetry 98 Intake/Output Intake/Output: Intake & Output 10/07/22 10/08/22 10/09/22 10/10/22 23:59 23:59 23:59 23:59 Intake Total 1840 1890 1240 Balance 1840 1890 1240 Meds/Results Medications: Active Medications Generic Name Dose Route Start Last Admin Trade Name Freq PRN Reason Stop Dose Admin Acetaminophen 650 mg 10/08/22 01:50 10/10/22 05:06 Acetaminophen 325 Mg Tablet PO 650 mg Q4H PRN Administration Mild Pain (1-3) or Fever Diphenhydramine HCl 50 mg 10/08/22 10:38 10/09/22 14:07 Diphenhydramine Hcl Cap 25 Mg Capsule PO 50 mg Q6H PRN Administration Itching Cefazolin Sodium
--- NOTE | 2022-10-10 11:13 | PC.NURSE ---
1100: FHT obtained from right lower quadrant ranging from 155-160.
--- NOTE | 2022-10-10 12:02 | PM.OBDSVD ---
DS: Admitting Diagnosis Discharge Date 10/10/22 Admitting Diagnosis cellulitis insect bit intrauterine in the second trimester DS: Discharge Diagnosis Discharge Diagnosis (1) Supervision of high risk , unspecified, unspecified trimester: Code(s): O09.90 - Supervision of high risk , unspecified, unspecified trimester Status: Acute (2) Cellulitis: Code(s): L03.90 - Cellulitis, unspecified Status: Acute OB - DS: Summary Hospital Course Hospital Course: 27-year-old female who was hospitalized for left upper extremity cellulitis secondary to insect bite. Patient is subsequently and her 23rd week. Patient's cellulitis was nonresponsive to oral antibiotics. Patient was also found to have an allergic reaction to clindamycin. Patient required IV antibiotic therapy. Hospitalist service and Infectious disease soft hat binder consultation was made. Patient had improvement in cellulitis after approximately 3 days of IV antibiotics. patient denied any obstetric complaints during her hospitalization. Patient transitioned to p.o. antibiotics and discharged OB Procedures : None OB Procedures Intrapartum: Other OB Procedures: : None Time Spent with Patient Time attestation: Total time spent providing and/or coordinating discharge services: Exam Const: General: cooperative, healthy appearing, comfortable and no acute distress Resp: Effort & Inspection: normal respiratory effort and able to speak in complete sentences Cardio: Rate: regular rate GI: Inspection: normal to inspection GI Palp: No abdominal tenderness and Yes Soft to palpation Skin: General skin exam: lesion ( Left upper extremity cellulitis) and rashes Full body images: 1. the area of cellulitis secondary to insect bite DS: Data Data Completed and Pending Labs on day of discharge: Labs from last 24 hours 10/10/22 10/10/22 10/09/22 01:28 01:23 17:04 WBC 8.1 RBC 3.62 L Hgb 11.2 L Hct 34.1 L MCV 94.2 MCH 30.9 MCHC 32.8 RDW 12.9 Plt Count 245 MPV 10.7 H Sodium 136 L Potassium 4.0 Chloride 109 H Carbon Dioxide 25 Anion Gap 2 L BUN 7 Creatinine 0.40 L 0.50 L Estim Creat Clear Calc 147 121 Estimated GFR > 60 > 60 Glucose 78 Calcium 8.9 Vancomycin Trough < 5.0 L Discharge Plan Discharge Consulting providers: Zulema Culp Mohammed Discharging Clinician: Cheko Schroeder Patient Disposition: Home, Self-Care Activity: as tolerated Diet: regular Patient Instructions: Antibiotic Form, Cellulitis (GEN) Stand Alone Forms: General Discharge Information Follow-up/Referrals: Mac Gresham MD [Physician] - 1 Week Discharge Medications: New amoxicillin 500 mg capsule 500 mg PO Q8H 10 Days Qty: 30 0RF sulfamethoxazole-trimethoprim 800-160 mg tablet 1 tablet PO Q12H Qty: 20 0RF Continued prenat.vits,shoshana,[id number] Tablet 1 tablet PO DAILY Discontinued clindamycin HCl 300 mg capsule 300 mg PO Q8H Qty: 21 0RF Date of admission: 10/09/22 13:42 Primary Care Provider: Diana,[place] Admitting Provider: Ulices Morin Attending physician on admission: Ulices Morin Condition: Stable
--- NOTE | 2022-10-10 12:41 | PCCCNOTE ---
On 10/10/22, the student, [Nata Márquez ], provided care and completed [facility] documentation on this patient. I have reviewed the student's documentation and agree with the findings.
[2022-10-10 13:35] VITALS: BP 99/59; PULSE 83; RESP 16; TEMP 36.6; O2SAT 100
== END 2022-10-10 15:00 | disposition home or self-care (01) | DRG 566 ==
LOC: ANHED 23:35 → ANH2MED 10-08 02:08
PROVIDERS: Family Medicine; Admitting Provider Obstetrics & Gynecology; Emergency Provider Physician Assistant; PCP Internal Medicine; Visit Provider Student in an Organized Health Care Education/Training Program
DX: O99.712 Diseases of the skin and subcutaneous tissue complicating pregnancy, second trimester (principal); L03.114 Cellulitis of left upper limb; Z3A.23 23 weeks gestation of pregnancy; O9A.212 Injury, poisoning and certain other consequences of external causes complicating pregnancy, second trimester; L27.1 Localized skin eruption due to drugs and medicaments taken internally; T36.8X5A Adverse effect of other systemic antibiotics, initial encounter; T63.331A Toxic effect of venom of brown recluse spider, accidental (unintentional), initial encounter
CPT/HCPCS: 36415; 80048; 80053; 80202; 82565; 85025; 85027; 96365; 96366; 96375; 99283; 99285; A9270; G0378; G0379; J0690; J1200; J3370; J7030

== ENCOUNTER 2022-10-22 10:48 | Outpatient (CLI) | payer OTHER, SELFPAY ==
[2022-10-22 12:10] LABS: Glucose 1 Hour PP 50gm Dose 109 mg/dL
[2022-10-22 12:14] LABS: Basophils Percent Auto 0.4 % (0.2-1.2); Eosinophils Percent Auto 0.5 % (0-4.4); Hematocrit 34.7 % (37.0-47.0); Hemoglobin 11.6 g/dL (12.0-15.0); Immature Granulocyte Absolute 0.05 K/mm3 (0.00-0.031); Immature Granulocyte Percent A 0.7 % (0-0.5); Lymphocytes Absolute Auto 1.03 K/mm3 (0.9-3.2); Lymphocytes Percent Auto 13.6 % (18.3-44.2); Mean Corpuscular HGB Conc 33.4 g/dl (32-36); Mean Corpuscular Hemoglobin 31.2 pg (26-34); Mean Corpuscular Volume 93.3 fl (80-100); Mean Platelet Volume 10.8 fl (7.4-10.4); Monocytes Absolute Auto 0.4 K/mm3 (0.1-0.6); Monocytes Percent Auto 5.7 % (2.6-8.5); Neutrophils Percent Auto 79.1 % (45.5-73.1); Platelet Count Result 252 k/mm3 (150-375); Red Blood Count 3.72 M/mm3 (4.2-5.4); Red Cell Distribution Width 13.1 % (11.5-14.5); White Blood Count 7.6 K/mm3 (4.5-10.0)
== END 2022-10-22 10:49 | disposition home or self-care (01) ==
PROVIDERS: PCP Internal Medicine; Visit Provider Obstetrics & Gynecology
DX: Z34.90 Encounter for supervision of normal pregnancy, unspecified, unspecified trimester (principal); Z3A.00 Weeks of gestation of pregnancy not specified
CPT/HCPCS: 36415; 82947; 85025

== ENCOUNTER 2022-12-10 10:25 | Outpatient (CLI) | payer OTHER, SELFPAY ==
[2022-12-10 12:22] LABS: Basophils Percent Auto 0.5 % (0.2-1.2); Eosinophils Percent Auto 0.7 % (0-4.4); Hematocrit 33.8 % (37.0-47.0); Hemoglobin 10.8 g/dL (12.0-15.0); Immature Granulocyte Absolute 0.06 K/mm3 (0.00-0.031); Lymphocytes Absolute Auto 1.08 K/mm3 (0.9-3.2); Lymphocytes Percent Auto 18.7 % (18.3-44.2); Mean Corpuscular Hemoglobin 28.6 pg (26-34); Mean Corpuscular Volume 89.4 fl (80-100); Mean Platelet Volume 11.1 fl (7.4-10.4); Monocytes Absolute Auto 0.4 K/mm3 (0.1-0.6); Monocytes Percent Auto 6.8 % (2.6-8.5); Neutrophils Absolute Auto 4.2 K/mm3 (1.3-6.7); Neutrophils Percent Auto 72.3 % (45.5-73.1); Platelet Count Result 206 k/mm3 (150-375); Red Blood Count 3.78 M/mm3 (4.2-5.4); Red Cell Distribution Width 13.3 % (11.5-14.5); White Blood Count 5.8 K/mm3 (4.5-10.0)
[2022-12-10 12:34] LABS: Glucose 1 Hour PP 50gm Dose 143 mg/dL
[2022-12-10 13:17] LABS: HIV 1/2 Ab P24 Ag Result Negative (Negative)
[2022-12-10 14:37] LABS: Rapid Plasma Reagin Non-Reactive (NonReactive)
== END 2022-12-10 10:26 | disposition home or self-care (01) ==
LOC: ANHLAB 10:26
PROVIDERS: PCP Internal Medicine; Visit Provider Registered Nurse
DX: Z34.90 Encounter for supervision of normal pregnancy, unspecified, unspecified trimester (principal); Z3A.00 Weeks of gestation of pregnancy not specified
CPT/HCPCS: 36415; 82947; 85025; 86592; 86703; G0432

== ENCOUNTER 2022-12-19 06:59 | Outpatient (CLI) | payer OTHER, SELFPAY ==
[2022-12-19 07:24] LABS: Glucose Fasting Gestational 87 mg/dL (>/=95)
[2022-12-19 09:01] LABS: Glucose 1 Hour Gest 155 mg/dL (>/=180)
[2022-12-19 10:24] LABS: Glucose 2 Hour Gest 141 mg/dL (>/= 155)
[2022-12-19 11:16] LABS: Glucose 3 Hour Gest 115 mg/dL (>/=140)
== END 2022-12-19 07:00 | disposition home or self-care (01) ==
PROVIDERS: PCP Internal Medicine; Visit Provider Registered Nurse
DX: O99.810 Abnormal glucose complicating pregnancy (principal); Z3A.00 Weeks of gestation of pregnancy not specified
CPT/HCPCS: 36415; 82951; 82952

== ENCOUNTER 2022-12-31 11:29 | Outpatient (CLI) | payer OTHER, SELFPAY ==
--- NOTE | 2022-12-31 13:10 | ECG_ITS ---
Measurements Intervals [place] Rate: 75 P: 0 [place]: 132 QRS: 0 QRSD: 93 T: 15 QT: 379 QTc: 425 Interpretive Statements SINUS RHYTHM DELAYED PRECORDIAL R/S TRANSITION BORDERLINE T WAVE ABNORMALITY- ANTERIOR LEADS BASELINE ARTIFACT- I, II, AVR BORDERLINE ECG NO PREVIOUS ECG AVAILABLE FOR COMPARISON Electronically Signed On 12-31-2022 13:47:29 CDT by Ravi Flores D.O.
[2022-12-31 13:31] VITALS: BP 90/60; PULSE 79
[2022-12-31 13:39] LABS: Basophils Percent Auto 0.2 % (0.2-1.2); Eosinophils Percent Auto 0.5 % (0-4.4); Hematocrit 34.4 % (37.0-47.0); Hemoglobin 11.1 g/dL (12.0-15.0); Immature Granulocyte Absolute 0.04 K/mm3 (0.00-0.031); Immature Granulocyte Percent A 0.6 % (0-0.5); Lymphocytes Absolute Auto 0.84 K/mm3 (0.9-3.2); Lymphocytes Percent Auto 13.3 % (18.3-44.2); Mean Corpuscular HGB Conc 32.3 g/dl (32-36); Mean Corpuscular Hemoglobin 29.4 pg (26-34); Mean Platelet Volume 11.1 fl (7.4-10.4); Monocytes Absolute Auto 0.7 K/mm3 (0.1-0.6); Neutrophils Absolute Auto 4.7 K/mm3 (1.3-6.7); Neutrophils Percent Auto 74.4 % (45.5-73.1); Platelet Count Result 181 k/mm3 (150-375); Red Blood Count 3.78 M/mm3 (4.2-5.4); Red Cell Distribution Width 17.3 % (11.5-14.5); White Blood Count 6.3 K/mm3 (4.5-10.0)
[2022-12-31 13:45] VITALS: BP 103/61; PULSE 82
[2022-12-31 13:58] LABS: Alanine Aminotransferase 16 U/L (6-35); Albumin Level 3.4 g/dL (3.5-5.1); Alkaline Phosphatase 112 U/L (38-126); Anion Gap 6 mmol/L (8-16); Aspartate Amino Transferase 24 U/L (14-36); Bilirubin,Total 0.6 mg/dL (0.2-1.3); Blood Urea Nitrogen 6 mg/dL (7-17); Calcium 9.1 mg/dL (8.4-10.2); Carbon Dioxide 24 mmol/L (22-30); Chloride 104 mmol/L (98-107); Estimated Glomerular Filt Rate > 60; Glucose 104 mg/dL (65-110); Potassium 3.3 mmol/L (3.4-5.0); Sodium 134 mmol/L (137-145)
[2022-12-31 14:00] VITALS: BP 113/66; PULSE 85
[2022-12-31 14:54] VITALS: BP 110/70; PULSE 80
== END 2022-12-31 14:15 | disposition home or self-care (01) ==
LOC: ANHOBOP 13:28 → ANHOBPP 13:29
PROVIDERS: PCP Internal Medicine; Visit Provider Obstetrics & Gynecology
DX: R42 Dizziness and giddiness (principal)
CPT/HCPCS: 36415; 59025; 80053; 85025; 93005; 99199

== ENCOUNTER 2023-01-15 11:02 | Observation (INO) | payer OTHER, SELFPAY ==
[2023-01-15 12:31] VITALS: BMI 32.7
--- NOTE | 2023-01-15 12:38 | OBADM ---
This patient, Lisbet Vasquez, admitted to the OB room Labor/Delivery/Recovery 105 for observation. Patient/family oriented to hospital policies and general routines including ID bracelet, bed and alarms, visiting hours, pain management, procedures, bathroom and other care routines, personal items, smoking policy, room service/diet, and visiting hours. Patient/Family are encouraged to report perceived risks to care and to ask questions if they do not understand what they are told or what they should do.
[2023-01-15 12:48] LABS: Appearance Urine Clear (Clear); Bilirubin Urine Negative (Negative); Blood Urine Negative (Negative); Color Urine Yellow (Yellow); Glucose Urine UA Negative (Negative); Ketones Urine Negative (Negative); Leukocyte Esterase Ur 1+ LEU/UL (Negative); Nitrate Urine Negative (Negative); Protein Urine Negative (Negative); Specific Grav Ur 1.015 (1.001-1.035); Urobilinogen Urine 0.2 mg/dL (<2.0)
[2023-01-15 12:51] VITALS: BP 106/64; PULSE 73
[2023-01-15 12:53] LABS: Bacteria Urine None Seen /hpf; Non Pathogenic Casts 0-2; RBC Urine 0-2 /hpf (0-2); Squamous Epithelial Cell Urine Moderate /hpf (Few)
[2023-01-15 13:01] VITALS: BP 108/68; PULSE 73
[2023-01-15 13:01] LABS: Add Urine Microscopic? YES
--- NOTE | 2023-02-09 09:39 | P.PNOB_ITS ---
OB - Triage/Final Diagnosis Visit Information Comments/Additional reasons for admission: I have assessed the risk for this patient, Lisbet Vasquez, and determined that she would benefit from observation care. Evaluation Laboratory results: Laboratory Tests 01/15/23 12:32 Urine Color Yellow Urine Appearance Clear Urine pH 7.0 Ur Specific [place] 1.015 Urine Protein Negative Urine Glucose (UA) Negative Urine Ketones Negative Ur Blood (Man) Negative Urine Nitrate Negative Urine Bilirubin Negative Urine Urobilinogen 0.2 Leukocyte Esterase Rfl 1+ H Urine RBC 0-2 Urine WBC 11-20 H Ur Squamous Epith Cells Moderate Urine Bacteria None seen Urine Casts 0-2 Final Diagnosis (1) False labor: Code(s): O47.9 - False labor, unspecified Status: Acute
--- NOTE | 2023-02-09 09:40 | PM.OBDSVD ---
DS: Admitting Diagnosis Discharge Date 01/15/23 Admitting Diagnosis Labor DS: Discharge Diagnosis Discharge Diagnosis (1) delivery delivered: Code(s): O82 - Encounter for delivery without indication Status: Acute OB - DS: Summary Hospital Course Hospital Course: She was admitted for labor and had a repeat section. She did well after the section. By POD2 she was ambulating well, tolerating regular diet, and had adequate pain control with oral pain medications. Lochia was minimal. OB Procedures : NST and Ultrasound OB Procedures Intrapartum: OB Procedures: : None Peripartum Data Infant Delivery Method: Section complications: none Status at Discharge Functional status at discharge: independent ambulation Time Spent with Patient Time attestation: Total time spent providing and/or coordinating discharge services: Exam Const: General: cooperative Orientation/consciousness: oriented to person, oriented to place and oriented to time HENMT: Face/Nose/Sinus: Normal external nose present Eyes: General: appearance normal, both eyes and all related structures Resp: Effort & Inspection: normal respiratory effort GI: Inspection: normal to inspection Skin: General skin exam: normal color Neuro: General: oriented to person, oriented to place and oriented to time Extrem: General: normal to inspection and no calf tenderness Psych: Appearance: grossly normal Mental Status: mental status grossly normal DS: Data Procedures/Treatments: Repeat low transverse section. Discharge Plan Discharge Attending physician on discharge: Mac Gresham Consulting providers: Juan Luis Sharp Discharging Clinician: Mac Gresham Patient Disposition: Home, Self-Care Activity: as tolerated Diet: regular Discharge Instructions: OB ANTEPARTUM DISCHARGE INSTRUCTIONS This information is given to help you properly care for yourself at home after your discharge from the hospital. Follow these instructions until your doctor tells you otherwise. DIET: Eat Three Well Balanced Meals per Day or Small Frequent Feedings Drink at Least Eight 8-Ounce Glasses of Caffeine-Free Beverages Daily ACTIVITY: As Tolerated RETURN TO LABOR AND DELIVERY IF YOU HAVE: Any Change In Baby's Normal Movement Pattern Any Leakage of Fluid Contractions 5-7 Minutes Apart with Increasing Intensity Vaginal Bleeding Additional Reasons to Return to Labor and Delivery: Contractions may feel like abdominal pain, tightening, cramping, pressure, back ache, or thigh ache. FOLLOW-UP CARE: Keep Next Scheduled Appointment To see Dr Mp Davis released to patient or family? N/A Medications from home returned to patient? N/A I Have Received Information Regarding Effective Home Pain Management I Acknowledge Receipt of and Understand the Above Instructions IF YOU HAVE ANY QUESTIONS REGARDING THESE INSTRUCTIONS, PLEASE CALL [phone]. IF PROBLEMS ARISE, CALL YOUR PROVIDER. IF EMERGENCY CARE IS NEEDED, [facility]S EMERGENCY ROOM IS AVAILABLE 24 HOURS A DAY. Stand Alone Forms: General Discharge Information Follow-up/Referrals: Mac Gresham MD [Physician] - Keep Reg. Scheduled Appt. Discharge Medications: Continued prenat.vits,shoshana,[id number] Tablet 1 tablet PO DAILY No Action nitrofurantoin macrocrystal 100 mg capsule 100 mg PO BID 7 Days Qty: 14 0RF Rx Instructions: must administer with a meal/food Date of admission: 01/15/23 11:02 Primary Care Provider: Diana,[place] Admitting Provider: Mac Gresahm Attending physician on admission: Mac Gresham Condition: Stable
== END 2023-01-15 14:23 | disposition home or self-care (01) ==
PROVIDERS: Admitting Provider Obstetrics & Gynecology; PCP Internal Medicine; Visit Provider Obstetrics & Gynecology
DX: O47.1 False labor at or after 37 completed weeks of gestation (principal); Z3A.37 37 weeks gestation of pregnancy
CPT/HCPCS: 81001; 84112; 87086; 87088; G0378; G0379

== ENCOUNTER 2023-01-16 09:07 | Outpatient (RCR) | payer OTHER, SELFPAY ==
[2023-01-09 09:56] VITALS: BP 111/69; PULSE 87
--- NOTE | ~2023-01-16 | US_ITS ---
EXAMINATION: US OB limited w BPP DATE: 01/16/2023 10:43 INDICATION: Large for gestational age during third trimester TECHNIQUE: Real-time pelvic ultrasound was performed. The interpreting radiologist was not present fo r the study. COMPARISON: 01/09/2023 FINDINGS: There is a single living fetus in vertex presentation. The placenta is fundal. heart rate is 1 42 beats per minute (bpm). Amniotic fluid volume is subjectively normal. Biophysical profile performed by the technologist: breathing (30 sec sustained breathing in 30 minutes): 2 out of 2 movement (3 gross body movements in 30 minutes): 2 out of 2 tone (one episode of ydpxvak-[id number] limb movement): 2 out of 2 Amniotic fluid pocket (2 cm): 2 out of 2 Total score: 8 out of 8 IMPRESSION: 1. Single living fetus in vertex presentation with heart rate of 142 bpm. 2. Biophysical profile 8 out of 8. Reviewed, dictated and finalized at location A.
--- NOTE | ~2023-01-16 | US_ITS ---
EXAMINATION: US OB BPP wo non-stress DATE: 01/09/2023 11:00 CDT INDICATION: Large for gestational age. TECHNIQUE: Real-time transabdominal obstetric ultrasound. FINDINGS: No prior studies for comparison. There is a single living fetus in vertex presentation. The placenta is posterior without placenta pr evia. cardiac activity and movement is noted with a heart rate of 147 beats per minute. Biophysical profile: breathin of 2 movement: 2 of 2 tone: 2 of 2 Amniotic flud pocket: 2 of 2 Total score: 8 of 8 IMPRESSION: 1. Single living intrauterine in vertex presentation. 2: Total biophysical profile score of 8/8. Reviewed, dictated and finalized at location B.
[2023-01-16 09:30] VITALS: BP 116/66; PULSE 80
[2023-01-16 10:02] VITALS: BP 111/69
== END 2023-02-26 11:25 | disposition home or self-care (01) ==
LOC: ANHOBOP 09:07
PROVIDERS: PCP Internal Medicine; Visit Provider Obstetrics & Gynecology
DX: O36.63X0 Maternal care for excessive fetal growth, third trimester, not applicable or unspecified (principal); Z3A.36 36 weeks gestation of pregnancy; Z3A.37 37 weeks gestation of pregnancy
CPT/HCPCS: 59025; 76815; 76819

== ENCOUNTER 2023-01-21 19:19 | Inpatient (IN) | payer OTHER, SELFPAY ==
[2023-01-21] VITALS (51 sets, daily range): BP systolic 74–180; BP diastolic 36–112; PULSE 40–203; RESP 15–18; TEMP 36.3; O2SAT 81–100; BMI 33.5
--- NOTE | 2023-01-21 19:19 | LDADM ---
This patient, Lisbet Vasquez, was admitted to Labor/Delivery/Recovery 120 on 01/21/23 at 19:19. Plans for labor, pain management and were discussed with patient. Patient/family oriented to hospital policies and general routines including ID bracelet, bed and alarms, visiting hours, pain management, procedures, bathroom and other care routines, personal items, smoking policy, room service/diet and guest tray routines, infant security routines, and visiting hours. Patient/Family are encouraged to report perceived risks to care and to ask questions if they do not understand what they are told or what they should do. See OBIX for further documentation.
[2023-01-21] MEDS: LACTATED RINGERS 1,000 ML 125 ML IV CONT (20:28)
[2023-01-21 20:37] LABS: Basophils Percent Auto 0.4 % (0.2-1.2); Eosinophils Absolute Auto 0.1 K/mm3 (0-0.3); Hematocrit 40.5 % (37.0-47.0); Hemoglobin 13.4 g/dL (12.0-15.0); Immature Granulocyte Absolute 0.07 K/mm3 (0.00-0.031); Lymphocytes Absolute Auto 1.33 K/mm3 (0.9-3.2); Lymphocytes Percent Auto 18.7 % (18.3-44.2); Mean Corpuscular HGB Conc 33.1 g/dl (32-36); Mean Corpuscular Volume 90.8 fl (80-100); Mean Platelet Volume 12.2 fl (7.4-10.4); Monocytes Absolute Auto 0.6 K/mm3 (0.1-0.6); Monocytes Percent Auto 8.7 % (2.6-8.5); Neutrophils Percent Auto 70.2 % (45.5-73.1); Platelet Count Result 188 k/mm3 (150-375); Red Blood Count 4.46 M/mm3 (4.2-5.4); White Blood Count 7.1 K/mm3 (4.5-10.0)
[2023-01-21] MEDS: ONDANSETRON INJ 4 MG/2 ML VIAL IV PUSH (20:42)
--- NOTE | 2023-01-21 20:55 | PM.IMHP ---
H&P: HPI History of Present Illness Date/Time: 01/21/23 20:55 Chief Complaint: Contractions Intrauterine at term Prior x1 Narrative: 27-year-old at 38 weeks 3 days with complaint of contractions. Patient painfully neha upon arrival. Cervix had progressed from an office exam. Patient's complicated by prior x1. Patient desires repeat Caesarean section. Review of Systems Cardiovascular: Cardiovascular: Denies chest pain, Denies leg edema, Denies palpitations, Denies dyspnea and Denies dyspnea on exertion Respiratory: Respiratory: Denies cough, Denies dyspnea and Denies dyspnea on exertion Gastrointestinal: Gastrointestinal: Denies abdominal pain, Denies constipation, Denies diarrhea, Denies nausea and Denies vomiting Genitourinary: Genitourinary: Denies hematuria, Denies urinary frequency, Denies dysuria, Denies pelvic pain, Denies urinary incontinence and Denies vaginal discharge Neurologic: Reports system reviewed and no additional complaints, except as documented Psychiatric: Psychiatric: Reports no additional psychiatric complaints Endocrine: Endocrine: Denies palpitations PMFSH Past Medical History Medical History Anxiety BMI 26.0-26.9,adult BMI 34.0-34.9,adult delivery delivered Delivery by section using low vertical uterine incision Surgical History Surgical History H/O breast biopsy 2020 History of tonsillectomy [place] teeth removed Family History Family History Grandparent Breast cancer Cerebrovascular accident Other Acute myocardial infarction Father No problems noted. Mother Asthma Sibling No problems noted. 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) Gender identity (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 by the patient): Female Sexual Orientation (if Verbalized by the Patient): Straight or Heterosexual Spiritual care concerns: No Meds Home Medications and Allergies Home Medications Medication Instructions Recorded Confirmed Type prenat.vits,shoshana,[id number] 1 tablet PO DAILY 07/05/21 01/21/23 History ferrous sulfate 325 mg (65 mg 325 mg PO DAILY 12/10/22 01/21/23 History iron) tablet magnesium 250 mg tablet 250 mg PO DAILY 01/07/23 01/21/23 History Allergies Allergy/AdvReac Type Severity Reaction Status Date / Time menthol Allergy Unknown Rash Verified 01/21/23 14:06 clindamycin Allergy Rash Verified 01/21/23 14:06 Vital Signs Vital Signs - 24 hr 01/21/23 20:16 01/21/23 20:31 01/21/23 20:46 Pulse Rate 88 77 140 H Blood Pressure 149/86 H 121/80 128/74 Oxygen Delivery 01/21/23 20:45 Pulse Rate Blood Pressure Oxygen Delivery Room Air Exam Const: General: no acute distress Eyes: EOM: EOMs intact bilaterally Neck: Neck: supple Thyroid: thyroid normal Chest: Breast/axilla inspection: normal inspection of the breasts Breast/axilla palpation: normal palpation of the breasts, normal palpation of the axillae and no axillary lymphadenopathy Resp: Effort & Inspection: normal respiratory effort Auscultation: clear to
[2023-01-21] MEDS: ceFAZolin 2 GM/D5W 50 ML 2 GM/50 ML BAG IVPB (21:11)
[2023-01-21] MEDS: KETOROLAC 30 MG/ML VIAL (*BKC) IV PUSH (21:56)
--- NOTE | 2023-01-21 22:00 | W.PM.PROC2 ---
Procedure Note - Detailed Date of Procedure 01/21/23 Pre-op Diagnosis Contractions intrauterine at term prior x 1 Post-op Diagnosis Same Procedure Performed low transverse section Surgeon Cheko Schroeder MD Anesthesia Spinal and Epidural Description of Procedure The patient was taken to the operating room. A combined spinal epidural anesthesic was administered and found to be adequate at a t-10 level. The patient was placed in a supine position with a slight left lateral tilt. A santos catheter was placed with return of clear urine. A Bovie grounding pad was placed. Surgical prep was performed and surgical drapes were placed. A surgical time out was performed. A Pfannenstiel skin incision was then made with the scalpel and carried through to the underlying layer of fascia. The fascia was then incised in the midline and the incision was extended laterally with the Villalpando scissors. The superior aspect of the fascia was then grasped with the Juan Jose clamps, elevated, and the underlying rectus muscles dissected off bluntly and sharply. Attention was then turned to the inferior aspect of this incision which, in a similar fashion, was grasped, tented up with the Juan Jose clamps, and the rectus muscles dissected off both bluntly and sharply. The rectus muscles were then in the midline. The peritoneum was identified and entered bluntly. The peritoneal incision was then extended superiorly and inferiorly with good visualization of the bladder. The Mobius ring retractor was placed for better visualization. The uterus was inspected for rotation. A low-transverse uterine incision was made sharply with the scalpel and entry was made into the uterine cavity. An amniotomy was made and copious amounts of clear fluid were noted on return. The uterine incision was extended laterally bluntly. The bladder blade was removed and the fetus was delivered atraumatically. The nose and mouth were suctioned with a bulb syringe. The umbilical cord was clamped twice and cut. The was handed off to the waiting staff. At the time of the delivery, the had good color, tone and grimace. The infant cried with minimal stimulation. A second segment of umbilical cord was clamped and cut for cord blood gasses. Cord blood was collected for determination of the blood type and for direct Martinez. The placenta was delivered spontaneously without difficulty. The placenta appeared grossly normal and complete. The uterus was exteriorized and cleared of all clots and debris. The uterine incision was repaired using 0-monocryl suture in a running fashion. A second layer of 0 Monocryl suture was used in an imbricating fashion to obtain excellent hemostasis and uterine strength. The uterine closure was inspected for hemostasis. The posterior aspect of the uterus and the broad ligaments were inspected and the posterior cul-de-sac cleared of fluid and blood clots. The uterine closure was again inspected and found to be hemostatic. The uterus was returned to the abdominal cavity. The pericolic gutters were inspected and were cleared of all blood clots and debris. The uterine closure was then re inspected to ensure hemostasis as were all subfascial tissues. The peritoneum was closed using 3-0 vicryl in a running fashion. The fascia was reapproximated with 0-vicryl in a running fashion. The subcutaneous tissue was irrigated and hemostasis achieved with electrocautery. The skin was closed with 4-0 vicryl in a subcuticular fashion. A sterile dressing was applied to the wound. The patient tolerated the procedure well. Sponge, lap and needle counts were correct times three. The patient was taken to recovery in stable condition and without anticipated complications. Estimated Blood Loss 720 Drains No Packing No Pathology None sent Complications No immediate complications Condition Stable Disposition Floor [facility] Surgery - Charge Forward: Surgery Frandy
[2023-01-21] MEDS: miSOPROStol 200 MCG TABLET 1000 MCG RECTAL (22:03)
--- NOTE | 2023-01-21 22:06 | WPDANESEPPF ---
Anes - Initial Pre Proc Eval Procedure: Operation Date: 01/21/23 21:00 Proposed Procedures p Repeat Section - Mac Gresham MD Date/Time: 01/21/23 22:06 Surgeon: Cheko Schroeder MD Pre Op Diagnosis: Contractions Patient Data Age: 27 Gender: F Height: 1.52 m Weight: 78 kg Last Vital Signs Pulse 140 H 01/21/23 20:46 BP 128/74 01/21/23 20:46 O2 Del Method Room Air 01/21/23 20:45 Allergies Allergy/AdvReac Type Severity Reaction Status Date / Time menthol Allergy Unknown Rash Verified 01/21/23 14:06 clindamycin Allergy Rash Verified 01/21/23 14:06 Home Medications Medication Instructions Recorded Confirmed Type prenat.vits,shoshana,[id number] 1 tablet PO DAILY 07/05/21 01/21/23 History ferrous sulfate 325 mg (65 mg 325 mg PO DAILY 12/10/22 01/21/23 History iron) tablet magnesium 250 mg tablet 250 mg PO DAILY 01/07/23 01/21/23 History Laboratory Tests 01/21/23 20:29 WBC 7.1 K/mm3 (4.5-10.0) RBC 4.46 M/mm3 (4.2-5.4) Hgb 13.4 g/dL (12.0-15.0) Hct 40.5 % (37.0-47.0) MCV 90.8 fl (80-100) MCH 30.0 pg (26-34) MCHC 33.1 g/dl (32-36) RDW 17.0 H % (11.5-14.5) Plt Count 188 k/mm3 (150-375) MPV 12.2 H fl (7.4-10.4) Immature Gran % (Auto) 1.0 H % (0-0.5) Neut % (Auto) 70.2 % (45.5-73.1) Lymph % (Auto) 18.7 % (18.3-44.2) [place] % (Auto) 8.7 H % (2.6-8.5) Eos % (Auto) 1.0 % (0-4.4) Baso % (Auto) 0.4 % (0.2-1.2) Lymph # (Auto) 1.33 K/mm3 (0.9-3.2) [place] # (Auto) 0.6 K/mm3 (0.1-0.6) Eos # (Auto) 0.1 K/mm3 (0-0.3) Baso # (Auto) 0.0 K/mm3 (0.0-0.1) Abs Immat Gran (auto) 0.07 H K/mm3 (0.00-0.031) Absolute Neuts (auto) 5.0 K/mm3 (1.3-6.7) Absolute Nucleated RBC 0.0 K/mm3 (0.0-0.012) Nucleated RBC % 0.0 % (0.0-0.2) RPR Pending Blood Type O Positive Antibody Screen Negative Patient hx anesthesia problems: none Family hx anesthesia problems: none Results Review: All pre-operative results and documents have been reviewed as part of the pre-operative evaluation. PENDING SALE TO [facility] Past Medical History Medical History Anxiety BMI 26.0-26.9,adult BMI 34.0-34.9,adult delivery delivered Delivery by section using low vertical uterine incision Surgical History Surgical History H/O breast biopsy 2020 History of tonsillectomy [place] teeth removed Family History Family History Grandparent Breast cancer Cerebrovascular accident Other Acute myocardial infarction Father No problems noted. Mother Asthma Sibling No problems noted. 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
[2023-01-21] MEDS: OXYTOCIN 30 UNITS/NS 500 ML 30 UNITS/500 ML BAG 999 UNITS (22:18)
[2023-01-21] MEDS: OXYTOCIN 30 UNITS/NS 500 ML 30 UNITS/500 ML BAG 999 UNITS IV CONT (22:18)
--- NOTE | 2023-01-21 22:30 | SUR.PHASEI ---
Amanda placed at bedside per Dr. Schroeder. 120cc of sterile water used to inflate balloon. Attached to wall suction.
--- NOTE | 2023-01-21 22:38 | P.PNOB_ITS ---
OB - PN: Subj Subjective Date/time seen: 01/21/23 22:38 Interval history: Called to postop room for concerns of bleeding. Fundal massage in the operating room expressed a large amount of clot with a small amount of bleeding after. 1000 mcg of Cytotec was placed rectally. Shortly after when the patient was transferred to the postoperative room, fundal massage was repeated and another large amount of clot and a trickle of blood followed. OB - PN: Obj Data Labs 01/21/23 20:29 Labs: Laboratory Results - last 24 hr 01/21/23 20:29 WBC 7.1 RBC 4.46 Hgb 13.4 Hct 40.5 MCV 90.8 MCH 30.0 MCHC 33.1 RDW 17.0 H Plt Count 188 MPV 12.2 H Immature Gran % (Auto) 1.0 H Neut % (Auto) 70.2 Lymph % (Auto) 18.7 [place] % (Auto) 8.7 H Eos % (Auto) 1.0 Baso % (Auto) 0.4 Lymph # (Auto) 1.33 [place] # (Auto) 0.6 Eos # (Auto) 0.1 Baso # (Auto) 0.0 Abs Immat Gran (auto) 0.07 H Absolute Neuts (auto) 5.0 Absolute Nucleated RBC 0.0 Nucleated RBC % 0.0 Blood Type O Positive Antibody Screen Negative OB - PN A/P Assessment and Plan (1) hemorrhage: Code(s): O72.1 - Other immediate hemorrhage Status: Acute Assessment and Plan: patient was noted to have continued brisk bleeding vaginally postoperatively Patient received 1000 mcg of Cytotec per rectum in the operating room Patient had several episodes of passing large clots with brisk bleeding Patient received additional IV Pitocin bolus Decision was made to proceed with placement of the Amanda hemorrhage device The device was placed without difficulty. The device was placed on wall suction with visible blood return in the tubing. Pt stable at this time, Will continue to monitor bleeding Time Spent With Patient Time: Total time spent is greater than 50% in coordination of care (as documented) at patient's floor/unit and/or counseling patient: Exam Const: General: comfortable and no acute distress Cardio: Rate: regular rate GI: Inspection: incision ( Covered with dressing) GI Palp: Yes Soft to palpation, No Guarding due to palpation present (GI) and No Rigid due to palpation Skin: General skin exam: normal color
[2023-01-21] MEDS: ONDANSETRON INJ 4 MG/2 ML VIAL (22:57)
[2023-01-21] MEDS: OXYTOCIN 30 UNITS/NS 500 ML 30 UNITS/500 ML BAG 125 UNITS IV CONT (23:15)
[2023-01-22] VITALS (35 sets, daily range): BP systolic 103–125; BP diastolic 55–75; PULSE 35–107; RESP 15–16; TEMP 36.6–37; O2SAT 94–98
[2023-01-22] MEDS: SCOPOLAMINE 1.5 MG PATCH TRANSDERM (00:18)
[2023-01-22] MEDS: PROMETHAZINE HCL 25 MG/ML AMPUL 6.25 MG IV PUSH (00:42)
--- NOTE | 2023-01-22 01:13 | OBPPTRN ---
Patient transferred to post room # 290 via stretcher. Support person present. Oriented to unit, room, information board, rooming in, admission packet and security measures. Patient verbalizes understanding.
[2023-01-22] MEDS: diphenhydrAMINE HCl INJ 50 MG/ML VIAL 25 MG IV PUSH (03:31)
[2023-01-22] MEDS: DEXTROSE 5%/0.45% SOD CHL 1,000 ML 125 ML IV CONT (03:33)
[2023-01-22 05:00] LABS: Basophils Percent Auto 0.2 % (0.2-1.2); Hematocrit 38.3 % (37.0-47.0); Hemoglobin 12.5 g/dL (12.0-15.0); Immature Granulocyte Absolute 0.09 K/mm3 (0.00-0.031); Immature Granulocyte Percent A 0.5 % (0-0.5); Lymphocytes Absolute Auto 0.74 K/mm3 (0.9-3.2); Lymphocytes Percent Auto 4.2 % (18.3-44.2); Mean Corpuscular HGB Conc 32.6 g/dl (32-36); Mean Corpuscular Hemoglobin 30.2 pg (26-34); Mean Corpuscular Volume 92.5 fl (80-100); Mean Platelet Volume 12.3 fl (7.4-10.4); Monocytes Absolute Auto 0.7 K/mm3 (0.1-0.6); Monocytes Percent Auto 3.7 % (2.6-8.5); Neutrophils Absolute Auto 16.2 K/mm3 (1.3-6.7); Neutrophils Percent Auto 91.4 % (45.5-73.1); Platelet Count Result 178 k/mm3 (150-375); Red Blood Count 4.14 M/mm3 (4.2-5.4); Red Cell Distribution Width 16.4 % (11.5-14.5); White Blood Count 17.7 K/mm3 (4.5-10.0)
--- NOTE | 2023-01-22 07:17 | PC.NURSE ---
0717 Dr. Schroeder @ bedside, he removed 120 mls of saline from the Amanda but Amanda will stay in place for observation, suction turned off. Dr. Gresham to remove later this morning.
[2023-01-22 07:23] LABS: Rapid Plasma Reagin Non-Reactive (NonReactive)
[2023-01-22] MEDS: DOCUSATE SODIUM 100 MG CAPSULE PO (08:36)
[2023-01-22] MEDS: LANOLIN (LANSINOH) 7.5 GM CREAM 1 APPLIC TOPICAL (08:36)
[2023-01-22] MEDS: MULTIVIT/MIN/PREN/FOL AC/IRON TABLET 1 TAB PO (08:36)
--- NOTE | 2023-01-22 09:33 | WPDANLDPN2 ---
Anes-Prog Note L&D Date/Time: 01/22/23 09:33 Comfortable throughout: section Neuraxial method: spinal Epidural/Spinal procedure site: clean & non-tender Neuro status: Neuro function grossly intact. Cardiovascular status: normal Respiratory status: normal Airway patency: baseline Mental status: baseline Post-Op hydration status: normal Vital Signs: Last Vital Signs Temp 36.6 C 01/22/23 01:20 Pulse 59 L 01/22/23 01:20 Resp 16 01/22/23 01:20 BP 124/71 01/22/23 01:20 Pulse Ox 98 01/22/23 01:20 O2 Del Method Room Air 01/22/23 04:30 Pain score (VAS): 04/22 I/O: Intake & Output 01/21/23 01/22/23 01/22/23 23:59 07:59 15:59 Intake Total 1550 1000 Output Total 970 948 Balance 580 52 Post-procedural complaints: none Patient feedback: Patient satisfied with anesthetic care.
--- NOTE | 2023-01-22 09:34 | WPDANLDNPN2 ---
Anes-Prog Note L&D-Neuraxial Date/Time: 01/22/23 09:34 Neuraxial medications: intrathecal PF morphine Opiod-related complaints: none Patient feedback: Patient satisfied with post-operative pain management.
--- NOTE | 2023-01-22 10:10 | PC.NURSE ---
Dr. Gresham @ bedside, she removed the YUE. Fundal check done by MD see charting. 50 mls of serosanguineous blood/fluid noted in suction can. Suction tubing and canister removed, suction canister to be replaced. Per Dr. Gresham patient to get up to a chair soon and if she feels ok, then ok to removal santos catheter.
[2023-01-22] MEDS: SIMETHICONE 80 MG TAB.CHEW PO ×2 (10:29→18:45)
[2023-01-22] MEDS: IBUPROFEN 600 MG TABLET PO (10:29)
--- NOTE | 2023-01-22 15:08 | PM.OBPNVD ---
OB - PN: Subj Subjective Date/time seen: 01/22/23 0730 Interval history: She states adequate pain control, no nausea, she is breast and bottle feeding, she has not ambulated, lightheadedness resolved. No leg pain. OB - PN: Obj Data Labs 01/22/23 03:40 Labs: Laboratory Results - last 24 hr 01/21/23 01/22/23 20:29 03:40 WBC 7.1 17.7 H RBC 4.46 4.14 L Hgb 13.4 12.5 Hct 40.5 38.3 MCV 90.8 92.5 MCH 30.0 30.2 MCHC 33.1 32.6 RDW 17.0 H 16.4 H Plt Count 188 178 MPV 12.2 H 12.3 H Immature Gran % (Auto) 1.0 H 0.5 Neut % (Auto) 70.2 91.4 H Lymph % (Auto) 18.7 4.2 L [place] % (Auto) 8.7 H 3.7 Eos % (Auto) 1.0 0.0 Baso % (Auto) 0.4 0.2 Lymph # (Auto) 1.33 0.74 L [place] # (Auto) 0.6 0.7 H Eos # (Auto) 0.1 0.0 Baso # (Auto) 0.0 0.0 Abs Immat Gran (auto) 0.07 H 0.09 H Absolute Neuts (auto) 5.0 16.2 H Absolute Nucleated RBC 0.0 0.0 Nucleated RBC % 0.0 0.0 RPR Non-reactive Blood Type O Positive Antibody Screen Negative OB - PN A/P Assessment and Plan (1) delivery delivered: Code(s): O82 - Encounter for delivery without indication Status: Acute Assessment and Plan: POD1 s/p c/s- she is doing well. Minimal lochia. The Zuleyka device was removed fundus -3 umb firm. Minimal lochia. She is doing well. Will get up in chair and then D/C [place]. Routine post section care. Time Spent With Patient Time: Total time spent is greater than 50% in coordination of care (as documented) at patient's floor/unit and/or counseling patient: Exam Const: General: comfortable and no acute distress HENMT: Head: normal to inspection Resp: Effort & Inspection: normal respiratory effort GI: Other: Pressure dressing intact, fundus -2 umb, firm nontender Extrem: General: normal to inspection and no calf tenderness Psych: Mental Status: mental status grossly normal Affect: normal affect
[2023-01-22] MEDS: diphenhydrAMINE HCl CAP 25 MG CAPSULE PO (18:45)
[2023-01-22] MEDS: ACETAMINOPHEN 325 MG TABLET 650 MG PO (18:45)
[2023-01-23] MEDS: IBUPROFEN 600 MG TABLET PO (03:40)
[2023-01-23] MEDS: MULTIVIT/MIN/PREN/FOL AC/IRON TABLET 1 TAB PO (08:30)
[2023-01-23] MEDS: DOCUSATE SODIUM 100 MG CAPSULE PO ×2 (08:30→16:19)
[2023-01-23] MEDS: HYDROcodone/acetaminophen (*CRX) 5-325 MG TABLET 1 TAB PO ×2 (08:31→16:18)
[2023-01-23 09:05] VITALS: BP 115/70; PULSE 68; RESP 16; TEMP 36.6; O2SAT 99
--- NOTE | 2023-01-23 16:26 | PM.OBPNVD ---
OB - PN: Subj Subjective Date/time seen: 01/23/23 0820 Interval history: She states adequate pain control, no nausea, she is breast and bottle feeding, she has ambulated without problems. Positive flatus. No leg pain. No lightheadness or dizziness. Minimal lochia. OB - PN: Obj Data Labs 01/22/23 03:40 OB - PN A/P Assessment and Plan (1) delivery delivered: Code(s): O82 - Encounter for delivery without indication Status: Acute Assessment and Plan: POD2. Doing well. Request discharge to home. Discharge precautions discussed. Will discharge. Time Spent With Patient Time: Total time spent is greater than 50% in coordination of care (as documented) at patient's floor/unit and/or counseling patient: Exam Const: General: comfortable and no acute distress Resp: Effort & Inspection: normal respiratory effort : Other: dressing removed, incision intact no drainage Neuro: General: oriented to person, oriented to place and oriented to time Extrem: General: normal to inspection and no calf tenderness Psych: Mental Status: mental status grossly normal
[2023-01-26 10:36] VITALS: BP 98/62; PULSE 80; RESP 18; TEMP 37.5; O2SAT 98
--- NOTE | 2023-02-20 10:36 | PM.OBDSVD ---
DS: Admitting Diagnosis Discharge Date 01/23/23 Admitting Diagnosis Labor DS: Discharge Diagnosis Discharge Diagnosis Plan Delivery by section. OB - DS: Summary Hospital Course Hospital Course: She was admitted for labor and had a repeat section. She did well after the section. By POD2 she was ambulating well, tolerating regular diet, and had adequate pain control with oral pain medications. Lochia was minimal. OB Procedures : Ultrasound OB Procedures Intrapartum: OB Procedures: : None Peripartum Data Delivery Method: Section Procedures: Procedures Operation Date: 01/21/23 21:00 Actual Procedure Side Surgeon p Section Cheko Schroeder MD complications: none Status at Discharge Functional status at discharge: independent ambulation Overall status at discharge: patient is progressing back to baseline Time Spent with Patient Time attestation: Total time spent providing and/or coordinating discharge services: Exam Const: General: cooperative Orientation/consciousness: oriented to person, oriented to place and oriented to time HENMT: Face/Nose/Sinus: Normal external nose present Eyes: General: appearance normal, both eyes and all related structures Resp: Effort & Inspection: normal respiratory effort GI: Inspection: normal to inspection Skin: General skin exam: normal color Neuro: General: oriented to person, oriented to place and oriented to time Extrem: General: normal to inspection and no calf tenderness Psych: Appearance: grossly normal Mental Status: mental status grossly normal Discharge Plan Discharge Attending physician on discharge: Mca Gresham Consulting providers: Cheko Schroeder; Juan Luis Sharp; Cheli Pop Discharging Clinician: Mac Gresham Anticipated Discharge Date/Time: 01/23/23 16:20 Patient Disposition: Home, Self-Care Activity: may shower, no straining, no driving and pelvic rest Diet: regular Discharge Instructions: Education: Mom and Baby Guide Given to: Mother Follow-Up: Call your delivering provider's office for an appointment to be seen in: 4 Weeks Mom and baby should come to the [facility] for the follow-up appointment. Appointment Date/Time: January 26, 2023 at 10:00 am What to expect at your follow-up visit: Blood Pressure Check Physical Assessment Call [phone] if you are unable to keep your appointment time. BREAST CARE: * Wear a snug supportive bra. * For engorgement discomfort: Breast Feeding: * Apply warm moist washcloths * Express milk as needed to relieve engorgement * Wear loose clothing Bottle Feeding: * May apply ice packs * For sore nipples: * Identify correct latch-on * Apply warm moist washcloths before and after nursing * Air dry nipples after nursing * May apply Lansinoh cream to nipples ABDOMINAL INCISION: (if applicable) * Allow incision to air dry * Do NOT use lotions for powders on your incision * When showering, allow soap and water to run over the incision, but do not wash incision EPISIOTOMY/PERINEAL CARE: * Until bleeding stops, use your thais bottle after urinating * Change your pad frequently throughout the day * You may take sitz baths several times a day (fill your bathtub with warm water and soak for 20 minutes.) Do NOT bathe in the water * No tub baths until seen by your physician - You may shower ACTIVITY: * Rest as much as possible. * Do not exercise or lift anything heavier than your baby (such as laundry or other children.) * Avoid stairs or driving as much as possible. * Do not put anything into the vagina. No douching, tampons, or sexual activity until seen by physician. NOTIFY PHYSICIAN IF YOU HAVE ANY QUESTIONS OR IF ANY OF THE FOLLOWING SYMPTOMS OCCUR: * If your episiotomy or incision be
== END 2023-01-23 17:30 | disposition home or self-care (01) | DRG 540 ==
LOC: ANHLDR 20:13 → ANHOB2 01-22 05:58 → ANHLDR 01-26 09:33 → ANHOB2 01-26 09:33
PROVIDERS: Admitting Provider Student in an Organized Health Care Education/Training Program; PCP Internal Medicine; Visit Provider Obstetrics & Gynecology
DX: O34.211 Maternal care for low transverse scar from previous cesarean delivery (principal); O72.1 Other immediate postpartum hemorrhage; Z37.0 Single live birth; Z3A.38 38 weeks gestation of pregnancy
CPT/HCPCS: 36415; 85025; 86592; 86850; 86900; 86901; A9270; J0690; J1200; J1885; J2274; J2405; J2550; J2590; J7120

== ENCOUNTER 2023-02-10 10:05 | Emergency (ER) | payer OTHER, SELFPAY ==
--- NOTE | ~2023-02-10 | US_ITS ---
EXAMINATION: US pelvic complete DATE: 02/10/2023 15:18 INDICATION: Possible retained products of conception Comparison:No prior studies for comparison. TECHNIQUE: Multiple transabdominal sonographic images of the pelvis performed. FINDINGS: The uterus measures 13.9 x 14 x 10.4 cm. The endometrial complex is heterogeneous and thick ened measuring 2.3 cm, compatible with retained products of conception. The right ovary measures 5 x 2.4 x 2.3 cm and the left ovary measures 3.9 x 2.8 x 3.3 cm. There are small follicles in each ovary. Normal doppler signal in both ovaries. There is no free fluid in the pelvis. There are no abnormal masses seen on either side. IMPRESSION: 1. Thickened heterogeneous endometrium measuring 2.3 cm, compatible with retained products of concept ion. Reviewed, dictated and finalized at location A. IMPRESSION: 1. Thickened heterogeneous endometrium measuring 2.3 cm, compatible with retain ed products of conception.
--- NOTE | ~2023-02-10 | CT_ITS ---
EXAMINATION: CT abdomen pelvis w con DATE: 02/10/2023 13:10 INDICATION: Low back pain. section on 01/21/2023. TECHNIQUE: Computed tomography (CT) of the abdomen and pelvis was performed with 100 mL Omnipaque 350 intravenous contrast. Automated exposure control and iterative reconstruction technique were employe d. The dose-length product was 351.68 mGy-cm. COMPARISON: Ultrasound 01/16/2023 FINDINGS: The visualized portions of the lung bases demonstrate minimal atelectasis. No pleural effus ion. The heart size is normal. No pericardial effusion. The liver, spleen, adrenal glands, and right kidney are normal. There is a 5 mm cyst in left kidney. The uterus is enlarged, consistent with recen t . The uterus is hypervascular. The ovarian veins are enlarged. The endometrial complex lazaro sures 3.0 cm in thickness. There is hyperenhancement in the endometrial complex. There are no patholo gically enlarged lymph nodes. There is no free intraperitoneal fluid. There is subcutaneous fat stran ding in the right upper quadrant, consistent with inflammation. There is thoracolumbar levoscoliosis. IMPRESSION: 1. Thickened endometrial complex with hyperenhancement, consistent with retained products of concepti on. Reviewed, dictated and finalized at location E. IMPRESSION: 1. Thickened endometrial complex with hyperenhancement, consistent with retaine d products of conception.
[2023-02-10 10:08] VITALS: BP 127/87; PULSE 106; RESP 20; TEMP 36.8; O2SAT 100
[2023-02-10 10:30] LABS: Basophils Percent Auto 0.1 % (0.2-1.2); Eosinophils Absolute Auto 0.4 K/mm3 (0-0.3); Eosinophils Percent Auto 4.9 % (0-4.4); Hematocrit 41.4 % (37.0-47.0); Hemoglobin 13.3 g/dL (12.0-15.0); Immature Granulocyte Absolute 0.02 K/mm3 (0.00-0.031); Immature Granulocyte Percent A 0.2 % (0-0.5); Lymphocytes Absolute Auto 0.81 K/mm3 (0.9-3.2); Lymphocytes Percent Auto 9.7 % (18.3-44.2); Mean Corpuscular HGB Conc 32.1 g/dl (32-36); Mean Corpuscular Volume 90.4 fl (80-100); Mean Platelet Volume 10.5 fl (7.4-10.4); Monocytes Absolute Auto 0.5 K/mm3 (0.1-0.6); Monocytes Percent Auto 6.5 % (2.6-8.5); Neutrophils Absolute Auto 6.5 K/mm3 (1.3-6.7); Neutrophils Percent Auto 78.6 % (45.5-73.1); Platelet Count Result 346 k/mm3 (150-375); Red Blood Count 4.58 M/mm3 (4.2-5.4); Red Cell Distribution Width 14.5 % (11.5-14.5); White Blood Count 8.3 K/mm3 (4.5-10.0)
[2023-02-10 10:33] LABS: Appearance Urine Cloudy (Clear); Bacteria Urine Rare /hpf; Bilirubin Urine Negative (Negative); Blood Urine Trace (Negative); Color Urine Yellow (Yellow); Glucose Urine UA Negative (Negative); Ketones Urine Negative (Negative); Leukocyte Esterase Ur 2+ LEU/UL (Negative); Nitrate Urine Negative (Negative); Non Pathogenic Casts 0-2; Protein Urine Negative (Negative); RBC Urine 0-2 /hpf (0-2); Specific Grav Ur 1.005 (1.001-1.035); Squamous Epithelial Cell Urine Few /hpf (Few); Urobilinogen Urine 0.2 mg/dL (<2.0); pH Urine 6.5 (5.0-9.0)
[2023-02-10 10:38] LABS: Add Urine Microscopic? YES
[2023-02-10 10:42] LABS: Alanine Aminotransferase 21 U/L (6-35); Albumin Level 4.6 g/dL (3.5-5.1); Alkaline Phosphatase 114 U/L (38-126); Anion Gap 10 mmol/L (8-16); Aspartate Amino Transferase 26 U/L (14-36); Bilirubin,Total 0.8 mg/dL (0.2-1.3); Blood Urea Nitrogen 6 mg/dL (7-17); Calcium 9.6 mg/dL (8.4-10.2); Carbon Dioxide 26 mmol/L (22-30); Chloride 99 mmol/L (98-107); Estimated CRCL calculation 123 ml/min; Estimated Glomerular Filt Rate > 60; Glucose 96 mg/dL (65-110); Potassium 3.5 mmol/L (3.4-5.0); Sodium 135 mmol/L (137-145)
[2023-02-10 12:26] VITALS: BP 118/70; PULSE 78; RESP 16; TEMP 36.7; O2SAT 100
--- NOTE | 2023-02-10 12:37 | ED.GENADULT ---
HPI - General Adult General Chief complaint: Recheck/Abnormal Lab/Rx <SUN Nunez Last Filed: 02/10/23 12:42> Stated complaint: c section 01/21; loer abd/back pain; incision pain <SUN Nunez Last Filed: 02/10/23 12:42> Time Seen by Provider: 02/10/23 12:53 <SUN Nunez Last Filed: 02/10/23 12:42> Source: patient <SUN Nunez Last Filed: 02/10/23 12:42> Mode of arrival: ambulatory <SUN Nunez Last Filed: 02/10/23 12:42> Limitations: no limitations <SUN Nunez Last Filed: 02/10/23 12:42> History of Present Illness HPI narrative: Patient is a 27-year-old female who presents to the ED with report of low back pain. Patient reports history of on 01/[address] Gresham. Developed pain across her lower back and hematuria last . Had outpatient urinalysis which showed blood. Started on Macrobid. Pain has continued to worsen, radiate into her hips, worse on the left side. Taking ibuprofen without relief. Denies fevers, nausea, vomiting. Denies significant abdominal pain, some discomfort around incision. Patient is not breast-feeding. Urine culture from 02/05 resulted negative, no growth. <SUN Nunez Last Filed: 02/10/23 12:42> Related Data Home medications: Home Medications Medication Instructions Recorded Confirmed prenat.vits,shoshana,[id number] 1 tablet PO DAILY 07/05/21 01/21/23 <SUN Nunez Last Filed: 02/10/23 12:42> Allergies/adverse reactions: Allergies Allergy/AdvReac Type Severity Reaction Status Date / Time menthol Allergy Unknown Rash Verified 02/05/23 14:21 clindamycin Allergy Rash Verified 02/05/23 14:21 <SUN Nunez Last Filed: 02/10/23 12:42> Review of Systems Review of Systems: CONSTITUTIONAL: Denies fever, chills, or sweats. GASTROINTESTINAL: See HPI. GENITOURINARY: See HPI. SKIN: Denies rash or itching. MUSCULOSKELETAL: See HPI. NEUROLOGIC: Denies headache, numbness, or weakness. <Lala Rendon PA-C - Last Filed: 02/10/23 12:42> All systems reviewed & are unremarkable except as noted in HPI and below <Lala Rendon PA-C - Last Filed: 02/10/23 12:42> PMFSH Past Medical History Medical History: Medical History Anxiety Delivery by section using low vertical uterine incision <Lala Rendon PA-C - Last Filed: 02/10/23 12:42> Surgical History Surgical History: Surgical History H/O breast biopsy 2020 H/O section (~01/21/23) x2 History of tonsillectomy [place] teeth removed <Lala Rendon PA-C - Last Filed: 02/10/23 12:42> Family History Family History: Family History Grandparent Breast cancer Cerebrovascular accident Other Acute myocardial infarction Father No problems noted. Mother Asthma Sibling No problems noted. <Lala Rendon PA-C - Last Filed: 02/10/23 12:42> Social History Social History: Social History Smoking status: Former smoker Second hand tobacco smoke exposure: No Alcohol intake: former Alcohol use details: Not since Substance use: never Substance use type: does not use Lack of Transportation: No Lack of Food: Never True Current Housing: I Have Housing Concerned About Future Housing: No Difficulty Paying Gas/Electric Bills: No Difficulty Paying for Meds: No Currently Unemployed: No Education: Trade/Vocational Certificate Difficulty w/ Childcare or Family Care: No Living arrangements: with family Occupation/Education: student Additional occupation/education comm
[2023-02-10] MEDS: KETOROLAC 30 MG/ML VIAL (*BKC) IV PUSH (14:13)
[2023-02-10 14:15] VITALS: BP 107/68; PULSE 68; RESP 18; O2SAT 99
[2023-02-10 15:27] VITALS: BP 104/60; PULSE 69; RESP 18; O2SAT 98
[2023-02-10 17:03] VITALS: BP 107/71; PULSE 68; RESP 18; O2SAT 98
== END 2023-02-10 17:06 | disposition home or self-care (01) ==
PROVIDERS: Emergency Provider Emergency Medicine; PCP Internal Medicine
DX: O72.2 Delayed and secondary postpartum hemorrhage (principal); O99.893 Other specified diseases and conditions complicating puerperium; M54.50 Low back pain, unspecified; Z87.891 Personal history of nicotine dependence
CPT/HCPCS: 36415; 74177; 76856; 80053; 81001; 81025; 85025; 87086; 87088; 87147; 96374; 99284; J1885; Q9967

== ENCOUNTER 2023-03-04 14:27 | Outpatient (CLI) | payer OTHER, SELFPAY ==
--- NOTE | ~2023-03-04 | US_ITS ---
EXAMINATION: US pelvic complete w TV DATE: 03/04/2023 15:29 INDICATION: Follow-up retained products of conception Comparison:Ultrasound dated 02/10/2023 TECHNIQUE: Multiple transabdominal and endovaginal sonographic images of the pelvis performed. FINDINGS: The uterus measures 10.1 x 6.8 x 9 cm. The endometrium is diffusely thickened and heterogen eous with endometrial mass measuring 5.2 x 3.2 x 4.6 cm. There is irregularity to the lower uterine s egment in the area of previous , consistent with scarring. The right ovary measures 4.2 x 1.2 x 3.7 cm and the left ovary measures 3.9 x 1.6 x 2.4 cm. There ar e small follicles in each ovary. Normal doppler signal in both ovaries. There is no free fluid in the pelvis. There are no abnormal masses seen on either side. IMPRESSION: 1. Irregular heterogeneous thickened endometrium containing 5.2 cm mass. Considerations include retai reva products of conception, polyp, submucosal fibroid and endometrial carcinoma. Recommend correlatio n with clinical examination. Reviewed, dictated and finalized at location B. IVER DISPATCHER IMPRESSION: 1. Irregular heterogeneous thickened endometrium containing 5.2 cm mass. Consid erations include retained products of conception, polyp, submucosal fibroid and endometrial carcinoma. Recommend correlation with clinical examination.
== END 2023-03-04 14:28 | disposition home or self-care (01) ==
LOC: ANHIMG 14:28
PROVIDERS: PCP Internal Medicine; Visit Provider Obstetrics & Gynecology
DX: O73.1 Retained portions of placenta and membranes, without hemorrhage (principal); Z3A.00 Weeks of gestation of pregnancy not specified
CPT/HCPCS: 76830; 76856

== ENCOUNTER 2023-03-20 10:23 | Observation (INO) | payer OTHER, SELFPAY ==
--- NOTE | 2023-03-17 18:02 | PC.NURSE ---
Report to the Outpatient Waiting Room, entrance under the green pavilion located off [facility], at time ____0600___ on date [id number]__. Planned Procedure Time: __0730 . Time changes happen often and if your time is changed the preop area will call you the afternoon before. - You and your visitor will be asked to self-screen and do not enter if you have any COVID symptoms. - A mask is optional within the hospital at this time. Patients may have clear liquids (water, carbonated beverages, clear teas, apple juice) until 3 hours prior to surgery (0430) with a maximum of 20 ounces. - No food from midnight until time of surgery - Take the following medications with a SIP of water the morning of surgery: Levofloxacin DO NOT STOP ANY OF YOUR OTHER PRESCRIPTION MEDICATIONS PRIOR TO SURGERY ?EXCEPT THE FOLLOWING Medications to discontinue per physician prenatal vits last dose on 03-16-2023. Do not take naproxen day of surgery. Please no make-up, nail macanese, hairspray, perfume, deodorant, or body powder the day of surgery. No jewelry (including any body piercings) or valuables the day of surgery, leave them at home. Please take a shower or bath the night before, or the morning of, surgery with an antibacterial soap. Wear comfortable, loose fitting clothing. Children are encouraged to wear pajamas. - Jewelry must be removed prior to entering the operating room. Rings and piercings that are not removed may be cut off. - The hospital will not accept responsibility for valuables. - Please leave all valuables, including medications, at home the day of surgery. If you are going home after surgery, a licensed peg driver must drive you home. - NO public transportation without another adult if you receive anesthesia. - We recommend that an adult stay with you for 24 hours following discharge. - We also recommend that you do not drive, make important decision, drink alcoholic beverages, or take any drugs that were not prescribed by your health care provider for at least 24 hours after your discharge time. Follow any additional instructions given to you from your surgeon. If you or anyone in your household have experienced Covid symptoms in the past week, please notify your surgeon or the nurse liaison at the phone number below for possible testing. Telephone instructions given to Paulcrystal (patient)____and asked if any additional questions and then verbalized understanding. Patient advised to call surgeon office or pre surgery nurse liaison [phone] if any additional questions.
[2023-03-17 18:11] VITALS: BMI 26.4
[2023-03-20] VITALS (15 sets, daily range): BP systolic 82–120; BP diastolic 36–72; PULSE 51–90; RESP 14–20; TEMP 36.4–37.1; O2SAT 94–100
[2023-03-20] MEDS: ACETAMINOPHEN 500 MG TABLET 1000 MG PO (06:13)
[2023-03-20] MEDS: LACTATED RINGERS 1,000 ML 30 ML IV CONT ×3 (06:20→09:38)
--- NOTE | 2023-03-20 06:49 | WPDANESEPPF ---
Anes - Initial Pre Proc Eval Procedure: Operation Date: 03/20/23 07:30 Proposed Procedures p Hysteroscopy Dilation and Curettage with Removal of any Endometrial Lesion, If Necessary - Mac Gresham MD Date/Time: 03/20/23 06:49 Surgeon: Mac Gresham MD Pre Op Diagnosis: possible retained products of conception Patient Data Age: 27 Gender: F Height: 1.55 m Weight: 62.2 kg Last Vital Signs Temp 37.1 C 03/20/23 06:26 Pulse 68 03/20/23 06:26 Resp 16 03/20/23 06:26 BP 111/63 03/20/23 06:26 Pulse Ox 100 03/20/23 06:26 O2 Del Method Room Air 03/20/23 06:26 Allergies Allergy/AdvReac Type Severity Reaction Status Date / Time menthol Allergy Unknown Rash Verified 03/20/23 06:07 clindamycin Allergy Rash Verified 03/20/23 06:07 Home Medications Medication Instructions Recorded Confirmed Type [id number] 1 mg 1 tablet PO 03/17/23 History tablet levofloxacin 500 mg tablet 500 mg PO DAILY 03/20/23 03/20/23 History Patient hx anesthesia problems: none Family hx anesthesia problems: none Results Review: All pre-operative results and documents have been reviewed as part of the pre-operative evaluation. [facility] Past Medical History Medical History Anxiety Delivery by section using low vertical uterine incision Surgical History Surgical History H/O breast biopsy 2020 H/O section (~01/21/23) x2 History of tonsillectomy [place] teeth removed Family History Family History Grandparent Breast cancer Cerebrovascular accident Other Acute myocardial infarction Father No problems noted. Mother Asthma Sibling No problems noted. Social History Social History Smoking status: Current some day smoker Tobacco type: e-cigarettes/vaping Second hand tobacco smoke exposure: No Alcohol intake: former Alcohol use details: Not since Substance use: never Substance use type: does not use Lack of Transportation: No Lack of Food: Never True Current Housing: I Have Housing Concerned About Future Housing: No Difficulty Paying Gas/Electric Bills: No Difficulty Paying for Meds: No Currently Unemployed: No Education: Trade/Vocational Certificate Difficulty w/ Childcare or Family Care: No Living arrangements: with family Occupation/Education: student 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) Gender identity (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 by the patient): Female Sexual Orientation (if Verbalized by the Patient): Straight or Heterosexual Spiritual care concerns: No Anes - Eval Final PreProcedure Day of Procedure 03/20/23 06:49 Patient weight: normal Heart: regular rate and rhythm Lungs: clear to auscultation Airway: Mallampati scale class II Neurological: alert and oriented Last oral intake: >/= 8 hours ASA classification: II Emergent: no Anesthetic plan: proceed Anesthesia type and monitoring: general GIVS and standard monitoring Results Review: All pre-operative results and documents have been reviewed as part of the pre-operative evaluation. Informed Consent: The patient's anesthetic plan and its attendant risks and benefits were discussed with the patient/family/POA. Questions were solicited and answers provided to the satisfaction of the patient/family/POA.
--- NOTE | 2023-03-20 06:51 | PM.IMHP ---
H&P: HPI History of Present Illness Date/Time: 03/20/23 06:51 Chief Complaint: abnormal ultrasound Narrative: She is scheduled for d and c hysteroscopy due to abnormally thickened endometrium of 5.2 cm. She had a repeat on 01/21. She had post op bleeding which resolved after Amanda device. Since then her bleeding has decreased but has not stopped. She had an ultrasound which showed 2cm thickening and was given misoprostol and follow up ultrasound showed 5cm. She has been informed of possible etiologies of retained tissue, abnormal cells. Recommend D and C hysteroscopy. Review of Systems Review of Systems: All systems reviewed & are unremarkable except as noted in HPI and below Constitutional: Constitutional: Reports frequent falls Cardiovascular: Cardiovascular: Reports no additional cardiovascular complaints, Denies chest pain and Denies dyspnea Respiratory: Respiratory: Reports no additional respiratory complaints and Denies dyspnea Gastrointestinal: Gastrointestinal: Reports abdominal pain, Denies change in bowel habits, Denies diarrhea, Denies nausea and Denies vomiting Genitourinary: Genitourinary: Reports pelvic pain Musculoskeletal: Musculoskeletal: Reports back pain Integumentary/Breasts: Skin/Breast: Reports system reviewed and no additional complaints, except as docu Neurologic: Reports system reviewed and no additional complaints, except as documented PMF Past Medical History Medical History Anxiety Delivery by section using low vertical uterine incision Surgical History Surgical History H/O breast biopsy 2019 H/O section (~01/21/23) x2 History of tonsillectomy [place] teeth removed Family History Family History Grandparent Breast cancer Cerebrovascular accident Other Acute myocardial infarction Father No problems noted. Mother Asthma Sibling No problems noted. Social History Social History Smoking status: Current some day smoker Tobacco type: e-cigarettes/vaping Second hand tobacco smoke exposure: No Alcohol intake: former Alcohol use details: Not since Substance use: never Substance use type: does not use Lack of Transportation: No Lack of Food: Never True Current Housing: I Have Housing Concerned About Future Housing: No Difficulty Paying Gas/Electric Bills: No Difficulty Paying for Meds: No Currently Unemployed: No Education: Trade/Vocational Certificate Difficulty w/ Childcare or Family Care: No Living arrangements: with family Occupation/Education: student 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) Gender identity (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 by the patient): Female Sexual Orientation (if Verbalized by the Patient): Straight or Heterosexual Spiritual care concerns: No Meds Home Medications and Allergies Home Medications Medication Instructions Recorded Confirmed Type [id number]-[id number]-[id number] 1 mg 1 tablet PO 03/17/23 History tablet levofloxacin 500 mg tablet 500 mg PO DAILY 03/20/23 03/20/23 History Allergies Allergy/AdvReac Type Severity Reaction Status Date / Time menthol Allergy Unknown Rash Verified 03/20/23 06:07 clindamycin Allergy Rash Verified 03/20/23 06:07 Vital Signs Vital Signs - 24 hr 03/20/23 06:26 Temperature 98.7 F Pulse Rate 68 Respiratory Rate 16 Blood Pressure 111/63 Pulse Oximetry 100 Oxygen Delivery Room Air Exam Const: General: no acute distress Orientation/consciousness: oriented to person and oriented to place HENMT: Head: normal to inspection Eyes: General: appearance normal, both eyes and all related structures Resp: Effort & Inspection: normal respiratory effort Ausculta
[2023-03-20] MEDS: SCOPOLAMINE 1.5 MG PATCH TRANSDERM (06:58)
--- NOTE | 2023-03-20 07:24 | WPDHPUPDATE1 ---
History and Physical Update Update Date/Time: 03/20/23 07:24 Will perform D and C hysteroscopy and removal of any lesion if present.
[2023-03-20] MEDS: ceFAZolin 2 GM/D5W 50 ML 2 GM/50 ML BAG IVPB (08:27)
[2023-03-20] MEDS: LIDOCAINE HCL 1% LOCAL INJ 20 ML VIAL 10 ML INFILTRATE (08:38)
--- NOTE | 2023-03-20 09:16 | SUR.OPER ---
Endometrial Mass sent for Frozen Section by RAMILA Pate. Received by Soraya in Lab. Awaiting results.
--- NOTE | 2023-03-20 09:29 | SUR.OPER ---
Type and Cross Drawn. Sent to Lab.
--- NOTE | 2023-03-20 09:42 | SUR.OPER ---
Pathologist spoke with Dr. Gresham in regards to Frozen Section Results.
[2023-03-20] MEDS: fentaNYL CITRATE INJ (*CRX) 100 MCG/2 ML VIAL 25 MCG IV PUSH ×4 (10:06→10:25)
[2023-03-20 11:52] LABS: Basophils Percent Auto 0.4 % (0.2-1.2); Eosinophils Absolute Auto 0.1 K/mm3 (0-0.3); Eosinophils Percent Auto 1.4 % (0-4.4); Hematocrit 36.4 % (37.0-47.0); Hemoglobin 11.7 g/dL (12.0-15.0); Immature Granulocyte Absolute 0.01 K/mm3 (0.00-0.031); Immature Granulocyte Percent A 0.2 % (0-0.5); Lymphocytes Absolute Auto 1.13 K/mm3 (0.9-3.2); Mean Corpuscular HGB Conc 32.1 g/dl (32-36); Mean Corpuscular Hemoglobin 29.3 pg (26-34); Monocytes Absolute Auto 0.4 K/mm3 (0.1-0.6); Monocytes Percent Auto 7.9 % (2.6-8.5); Neutrophils Absolute Auto 3.3 K/mm3 (1.3-6.7); Neutrophils Percent Auto 67.1 % (45.5-73.1); Platelet Count Result 195 k/mm3 (150-375); Red Cell Distribution Width 12.8 % (11.5-14.5); White Blood Count 4.9 K/mm3 (4.5-10.0)
--- NOTE | 2023-03-20 12:43 | P.OP_ITS ---
Procedure Note - Detailed Date of Procedure 03/20/23 Pre-op Diagnosis Abnormal thickening of endometrial cavity Post-op Diagnosis Other (Endometrial mass) Procedure Performed Hysteroscopy dilation and curettage, Aveta shavings of endometrial mass Surgeon Mac Gresham MD Anesthesia MAC and Local Indications Enlarging endometrial mass. Patient is almost 8 weeks status post repeat C- section which was complicated by post op bleeding which did resolve with the Amanda instrument. Since delivery she has had irregular bleeding and has had episodes of heavy bleeding she had an ultrasound which showed a 2 cm endometrial complex possible retained tissue. She was then given misoprostol, she did not get any significant bleeding after then she has had intermittent spotting. She then had a follow-up ultrasound after the misoprostol and it showed a 5 cm mass in the uterus. She was recommended for D and C hysteroscopy. She did state she had been having some recent dark blood over the past few days prior to the date of surgery. Not heavy like a period. Findings Uterus sound to 7-1/2 cm with a hysteroscopy there was a large mass occupying most of the cavity which was soft appear to originate from the lower uterus was able to visualize behind the mass and at the fundus which that appeared normal. Description of Procedure After informed consent was obtained patient was taken to the operating room and IV sedation was administered she was placed in high lithotomy position. An exam under anesthesia was performed uterus palpated approximately 10 week size. She was then prepped and draped in sterile fashion. The bladder was emptied of approximately 200 cc of yellow urine. Speculum was inserted. Single-tooth tenaculum placed on the anterior lip of the cervix 10 cc of 1% lidocaine was injected at the cervical vaginal interface had to 8 in 10:00 a.m.. The uterus was sound to 7.5 cm. The hysteroscope was inserted and there appeared to be a mass which was whitish in color that occupied most of the body of the uterus possible more coming from the lower posterior uterus. Was able to visualize behind the mass at the fundus of the uterus which appeared normal. It did have attachment to the anterior uterus. The of the the instrument with the larger biopsy instrument was inserted and the mass was continually a debulked until the instrument would not cut. Decided to change the blade. While changing the blades she was noted to have large blood coming from the cervical os. A curettage was performed. The cavity was palpated there was a good sound noted. She continued to have heavy bleeding. Instructed Anesthesia to give 0.2 mg of Methergine IM. Continue to apply pressure to the uterus and packing with laparotomy sponges. The bleeding eventually stopped coming from the cervix. At this time the estimated blood loss from the saturated pads approximately 700 cc. The laparotomy sponge was removed and there was no active bleeding from the cervix, the packing was minimally soiled. The vagina was then packed with 2 two yards of vaginal packing. The tissue acquired from the Avet was sent for frozen section from the Aveta sampling tissue. I talked with pathologist, no malignant cells seen initially. Patient was taken to recovery room in stable condition. Estimated Blood Loss -800.0 Urine Output 200 Drains No Packing Yes (Over 2 yd of fat packing) Pathology Yes (Frozen section on the endometrial sampling tissue did not show any malignan cy) Complications No immediate complications Condition Stable Disposition PACU
--- NOTE | 2023-03-20 13:20 | PC.NURSE ---
Dr. Gresham at bedside, vaginal packing removed. Corrales catheter discontinued.
[2023-03-20] MEDS: IBUPROFEN 600 MG TABLET PO (16:19)
--- NOTE | 2023-03-20 16:30 | PC.NURSE ---
Dr. Gresham at bedside. discharge order received
--- NOTE | 2023-04-19 20:44 | PM.DS ---
DS: Admitting Diagnosis Discharge Date 03/20/23 Admitting Diagnosis abnormal uterine bleeding DS: Discharge Diagnosis Discharge Diagnosis (1) Endometrial thickening on ultrasound: Code(s): R93.89 - Abnormal findings on diagnostic imaging of other specified body structures Status: Acute (2) Abnormal uterine bleeding: Code(s): N93.9 - Abnormal uterine and vaginal bleeding, unspecified Status: Acute DS: Summary Hospital Course Reason for hospitalization: a Hospital Course: She was admitted for D and C hysteroscopy. She did have significant bleeding while removing the lesion. Hemostasis was obtained. She had vaginal packing and was monitored for several hours after procedure. Bleeding minimal. Hemodynamicly stable. She was discharged with bleeding precautions. Status at Discharge Functional status at discharge: independent ambulation Time Spent with Patient Time attestation: Total time spent providing and/or coordinating discharge services: Exam Const: General: comfortable Eyes: General: appearance normal, both eyes and all related structures Resp: Effort & Inspection: normal respiratory effort GI: Inspection: normal to inspection Other: soft nontender3 DS: Data Data Completed and Pending Completed studies during hospitalization: Pending at discharge 03/20/23 09:10 Surgical [PTH] Routine Pending studies at discharge: Pending at discharge 03/20/23 09:43 Surgical [PTH] Routine Discharge Plan Discharge Attending physician on discharge: Mac Tavarez Consulting providers: Elias Cruz Discharging Clinician: Mac Tavarez Patient Disposition: Home, Self-Care Activity: as tolerated Diet: as tolerated and regular Discharge Instructions: Remove the Scopolamine patch that was placed behind your left ear in 72 hours or less. Wash your hands after touching. follow up in office on thursday. increasing in vaginal bleeding, call Dr. tavarez, or go to ED. take pain med tylenol, Ibuprophne. diet as tolerate. Stand Alone Forms: General Discharge Instructions Follow-up/Referrals: Mac Tavarez MD [Physician] - Discharge Medications: New ibuprofen 600 mg Tablet 600 mg PO Q6H PRN (Reason: Cramping) 0RF Continued [id number] 1 mg Tablet 1 tablet PO levofloxacin 500 mg tablet 500 mg PO DAILY Date of admission: 03/20/23 10:23 Primary Care Provider: Diana,Sterling Vines Admitting Provider: Mac Tavarez Attending physician on admission: Mac Tavarez Condition: Stable
== END 2023-03-20 17:40 | disposition home or self-care (01) ==
LOC: ANHOBPP 10:53
PROVIDERS: Admitting Provider Obstetrics & Gynecology; PCP Internal Medicine; Visit Provider Obstetrics & Gynecology
PROC: 0U5B8ZZ Destruction of Endometrium, Via Natural or Artificial Opening Endoscopic (ICD-10-PCS; CPT 58563; principal; 2023-03-20 07:30)
DX: R93.89 Abnormal findings on diagnostic imaging of other specified body structures (principal); F41.9 Anxiety disorder, unspecified; F17.290 Nicotine dependence, other tobacco product, uncomplicated; Z79.899 Other long term (current) drug therapy
CPT/HCPCS: 58558; 36415; 85025; 86850; 86900; 86901; 88305; 88331; A9270; G0378; G0379; J0690; J2210; J2250; J2704; J3010; J7040; J7120

== ENCOUNTER 2023-03-21 20:23 | Emergency (ER) | payer OTHER, SELFPAY ==
[2023-03-21 20:25] VITALS: BP 122/79; PULSE 86; RESP 18; TEMP 36.3; O2SAT 100
[2023-03-21 20:47] LABS: Basophils Percent Auto 0.6 % (0.2-1.2); Eosinophils Absolute Auto 0.1 K/mm3 (0-0.3); Eosinophils Percent Auto 2.1 % (0-4.4); Hemoglobin 11.3 g/dL (12.0-15.0); Immature Granulocyte Absolute 0.01 K/mm3 (0.00-0.031); Immature Granulocyte Percent A 0.2 % (0-0.5); Lymphocytes Absolute Auto 1.45 K/mm3 (0.9-3.2); Mean Corpuscular HGB Conc 32.3 g/dl (32-36); Mean Corpuscular Hemoglobin 29.4 pg (26-34); Mean Corpuscular Volume 90.9 fl (80-100); Mean Platelet Volume 10.8 fl (7.4-10.4); Monocytes Absolute Auto 0.3 K/mm3 (0.1-0.6); Monocytes Percent Auto 6.8 % (2.6-8.5); Neutrophils Absolute Auto 2.9 K/mm3 (1.3-6.7); Neutrophils Percent Auto 60.3 % (45.5-73.1); Platelet Count Result 239 k/mm3 (150-375); Red Blood Count 3.85 M/mm3 (4.2-5.4); Red Cell Distribution Width 12.9 % (11.5-14.5); White Blood Count 4.8 K/mm3 (4.5-10.0)
[2023-03-21 21:30] VITALS: BP 100/71; PULSE 72; RESP 14; O2SAT 100
[2023-03-21 22:13] LABS: Prothrombin Time 13.5 Seconds (11.1-14.7)
[2023-03-21 22:17] LABS: Alanine Aminotransferase 21 U/L (6-35); Albumin Level 4.5 g/dL (3.5-5.1); Alkaline Phosphatase 62 U/L (38-126); Anion Gap 8 mmol/L (8-16); Aspartate Amino Transferase 28 U/L (14-36); Bilirubin,Total 0.6 mg/dL (0.2-1.3); Blood Urea Nitrogen 8 mg/dL (7-17); Calcium 9.4 mg/dL (8.4-10.2); Carbon Dioxide 25 mmol/L (22-30); Chloride 106 mmol/L (98-107); Estimated CRCL calculation 120 ml/min; Estimated Glomerular Filt Rate > 60; Glucose 85 mg/dL (65-110); Potassium 3.8 mmol/L (3.4-5.0); Sodium 139 mmol/L (137-145)
--- NOTE | 2023-03-21 23:21 | ED.FEMALEGU ---
HPI - Female Genitourinary General Chief complaint: Vaginal Bleeding Stated complaint: vaginal bleeding Time Seen by Provider: 03/21/23 22:38 Source: patient and old records reviewed Mode of arrival: ambulatory Limitations: no limitations History of Present Illness HPI Narrative: Patient is 27-year-old female who presents ED with report of vaginal bleeding. The patient reports she had a section on 02/01 which was complicated by postop bleeding. She was later found to have an endometrial mass which was concern for retained products of conception. The mass grew in size fairly quickly and patient underwent D&C with hysteroscopy yesterday under Dr. Gresham. Patient states she did sustain a moderate amount of blood loss in the procedure yesterday, 800 cc per records/ operative note. She states she was told to expect bleeding today, but reports for approx 2 hours prior to arrival to the ED, the bleeding became heavier. She notes she was bleeding through /saturating pads within 1 hour. She does report lower abdominal intermittent sharp stabbing pains, dizziness/LH, endorses mild nausea, denies vomiting. Denies fevers. Patient's blood type is O positive per records. Related Data Home Medications Medication Instructions Recorded Confirmed [id number] 1 mg 1 tablet PO 03/17/23 tablet levofloxacin 500 mg tablet 500 mg PO DAILY 03/20/23 03/20/23 Allergies Allergy/AdvReac Type Severity Reaction Status Date / Time menthol Allergy Unknown Rash Verified 03/21/23 22:21 clindamycin Allergy Rash Verified 03/21/23 22:21 Review of Systems Review of Systems: CONSTITUTIONAL: Denies fever, chills, or sweats. CARDIOVASCULAR: Denies chest pain. RESPIRATORY: Denies dyspnea. GASTROINTESTINAL: See HPI. GENITOURINARY: See HPI. SKIN: Denies rash or itching. MUSCULOSKELETAL: Denies back pain, joint pain, or myalgia. NEUROLOGIC: See HPI. All systems reviewed & are unremarkable except as noted in HPI and below PMFSH Past Medical History Medical History Anxiety Delivery by section using low vertical uterine incision Surgical History Surgical History H/O breast biopsy 2020 H/O section (~01/21/23) x2 History of tonsillectomy [place] teeth removed Family History Family History Grandparent Breast cancer Cerebrovascular accident Other Acute myocardial infarction Father No problems noted. Mother Asthma Sibling No problems noted. Social History Social History Smoking status: Current some day smoker Tobacco type: e-cigarettes/vaping Second hand tobacco smoke exposure: No Alcohol intake: former Alcohol use details: Not since Substance use: never Substance use type: does not use Lack of Transportation: No Lack of Food: Never True Current Housing: I Have Housing Concerned About Future Housing: No Difficulty Paying Gas/Electric Bills: No Difficulty Paying for Meds: No Currently Unemployed: No Education: Trade/Vocational Certificate Difficulty w/ Childcare or Family Care: No Living arrangements: with family Occupation/Education: student 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 HEAD: Normocephalic, atraumatic. NECK: Supple. No adenopathy, no masses. RESPIRATORY: Airway patent, respirations nonlabored. Clear to auscultation bilaterally, no rales, rhonchi, wheezing. CARDIOVASCULAR: Re
[2023-03-21 23:23] VITALS: BP 115/59; PULSE 70
[2023-03-21 23:25] VITALS: BP 106/73; PULSE 92
[2023-03-21 23:26] VITALS: BP 104/74; PULSE 100
[2023-03-21 23:30] VITALS: BP 108/64; PULSE 73; RESP 14; O2SAT 100
[2023-03-22] MEDS: SODIUM CHLORIDE 0.9% IV 1,000 ML 999 ML IV CONT (00:05)
[2023-03-22 00:09] LABS: Hematocrit 33.9 % (37.0-47.0); Hemoglobin 11.1 g/dL (12.0-15.0)
[2023-03-22 00:26] VITALS: BP 103/62; PULSE 69; RESP 14; O2SAT 100
[2023-03-22 01:30] VITALS: BP 102/76; PULSE 63; RESP 14; O2SAT 100
[2023-03-22 02:30] VITALS: BP 100/66; PULSE 60; RESP 14; O2SAT 97
[2023-03-22 02:47] LABS: Appearance Urine Clear (Clear); Bacteria Urine None Seen /hpf; Bilirubin Urine Negative (Negative); Blood Urine 2+ (Negative); Color Urine Yellow (Yellow); Glucose Urine UA Negative (Negative); Ketones Urine 1+ mg/dL (Negative); Leukocyte Esterase Ur Trace LEU/UL (Negative); Need Manual Microscopic Reviewed; Nitrate Urine Negative (Negative); Non Pathogenic Casts 0-2; Protein Urine Negative (Negative); Specific Grav Ur 1.011 (1.001-1.035); Squamous Epithelial Cell Urine Few /hpf (Few); WBC Urine 0-5 /hpf; pH Urine 7.5 (5.0-9.0)
[2023-03-22 02:48] LABS: Add Urine Microscopic? YES
[2023-03-22 03:20] VITALS: BP 101/77; PULSE 65; RESP 14; O2SAT 100
== END 2023-03-22 03:20 | disposition home or self-care (01) ==
PROVIDERS: Emergency Medicine; Emergency Provider Physician Assistant; PCP Internal Medicine
DX: N99.820 Postprocedural hemorrhage of a genitourinary system organ or structure following a genitourinary system procedure (principal); F17.290 Nicotine dependence, other tobacco product, uncomplicated
CPT/HCPCS: 36415; 80053; 81001; 85014; 85018; 85025; 85610; 85730; 96360; 99284; J7030

== ENCOUNTER 2023-12-31 13:34 | Outpatient (CLI) | payer OTHER, SELFPAY ==
--- NOTE | ~2023-12-31 | US_ITS ---
EXAMINATION: US pelvic complete w TV DATE: 12/31/2023 14:37 INDICATION: Abnormal findings on diagnostic imaging on prior imaging TECHNIQUE: Multiple transabdominal and endovaginal sonographic images of the pelvis were obtained. COMPARISON: None. FINDINGS: The uterus measures 8.7 x 4.2 x 5.9 cm. The endometrial complex measures 5 mm in thickness. There is a 3 mm hyperechoic focus at the myometrial/endometrial junction likely representing dystrophic calci fication related to reported prior D&C. There is a small invagination with refraction artifact at the anterior lower uterine segment consistent with a section scar. The right ovary measures 4.1 x 2.7 x 3.6 cm. The left ovary measures 3.2 x 2.9 x 1.9 cm. There are multiple subcentimeter cysts a t both ovaries, more numerous along the periphery of the right ovary. Vascular flow arterial waveform s identified in both ovaries on color Doppler. There is no free fluid in the pelvis. IMPRESSION: 1. 3 mm hyperechoic focus at the endometrial/myometrial junction likely dystrophic calcific lesion re lated to prior reported D&C. 2. Multiple subcentimeter bilateral ovarian cysts particularly on the right where they are arranged a long the periphery of the right ovary as can be seen in setting of polycystic ovarian disease. Reviewed, dictated and finalized at location B. IMPRESSION: 1. 3 mm hyperechoic focus at the endometrial/myometrial junction likely dystrop hic calcific lesion related to prior reported D&C. 2. Multiple subcentimeter bilateral ovarian cysts particularly on the right whe re they are arranged along the periphery of the right ovary as can be seen in s etting of polycystic ovarian disease.
== END 2023-12-31 13:35 | disposition home or self-care (01) ==
LOC: ANHIMG 13:34
PROVIDERS: PCP Internal Medicine; Visit Provider Nurse Practitioner Obstetrics & Gynecology
DX: N83.201 Unspecified ovarian cyst, right side (principal); N83.202 Unspecified ovarian cyst, left side
CPT/HCPCS: 76830; 76856

== ENCOUNTER 2024-02-09 10:38 | Emergency (ER) | payer OTHER, SELFPAY ==
--- NOTE | ~2024-02-09 | XR_ITS ---
EXAMINATION: XR chest 2V DATE: 02/09/2024 11:46 INDICATION: Shortness of breath and palpitations. Midline chest pain. TECHNIQUE: Frontal and lateral views of the chest were obtained. COMPARISON: CT abdomen and pelvis 02/10/2023 FINDINGS: There is no pneumonia, pleural effusion, or pneumothorax. The heart size is normal. IMPRESSION: 1. No acute cardiopulmonary disease. Reviewed, dictated and finalized at location B.
[2024-02-09 10:38] VITALS: BP 103/60; PULSE 76; RESP 16; TEMP 36.4; O2SAT 99
--- NOTE | 2024-02-09 10:50 | ECG_ITS ---
Test Date: 2024-02-09 10:54:19 Measurements Intervals [place] Rate: 72 P: 38 OK: 151 QRS: 24 QRSD: 98 T: 31 QT: 413 QTc: 453 Interpretive Statements SINUS RHYTHM No previous ECG available for comparison Electronically Signed On 02-09-2024 13:58:20 CDT by Malcolm Booker M.D.
[2024-02-09 10:51] VITALS: PULSE 74
[2024-02-09 11:15] LABS: Basophils Percent Auto 0.6 % (0.2-1.2); Eosinophils Percent Auto 0.4 % (0-4.4); Hematocrit 41.2 % (37.0-47.0); Hemoglobin 14.1 g/dL (12.0-15.0); Immature Granulocyte Absolute 0.02 K/mm3 (0.00-0.031); Immature Granulocyte Percent A 0.4 % (0-0.5); Lymphocytes Absolute Auto 0.76 K/mm3 (0.9-3.2); Lymphocytes Percent Auto 14.8 % (18.3-44.2); Mean Corpuscular HGB Conc 34.2 g/dl (32-36); Mean Corpuscular Hemoglobin 29.9 pg (26-34); Mean Corpuscular Volume 87.5 fl (80-100); Monocytes Absolute Auto 0.4 K/mm3 (0.1-0.6); Monocytes Percent Auto 7.6 % (2.6-8.5); Neutrophils Absolute Auto 3.9 K/mm3 (1.3-6.7); Neutrophils Percent Auto 76.2 % (45.5-73.1); Platelet Count Result 269 k/mm3 (150-375); Red Blood Count 4.71 M/mm3 (4.2-5.4); Red Cell Distribution Width 12.5 % (11.5-14.5); White Blood Count 5.1 K/mm3 (4.5-10.0)
[2024-02-09 11:22] LABS: Potassium 3.3 mmol/L (3.4-5.0)
[2024-02-09 11:26] LABS: Alanine Aminotransferase 15 U/L (6-35); Albumin Level 4.8 g/dL (3.5-5.1); Alkaline Phosphatase 68 U/L (38-126); Anion Gap 11 mmol/L (4-12); Aspartate Amino Transferase 23 U/L (14-36); Bilirubin,Total 1.1 mg/dL (0.2-1.3); Blood Urea Nitrogen 8 mg/dL (7-17); Calcium 9.8 mg/dL (8.4-10.2); Carbon Dioxide 25 mmol/L (22-30); Chloride 105 mmol/L (98-107); Estimated CRCL calculation 85 ml/min; Estimated Glomerular Filt Rate > 60; Glucose 99 mg/dL (65-110); Sodium 141 mmol/L (137-145)
[2024-02-09 11:47] VITALS: O2SAT 98
[2024-02-09] MEDS: SODIUM CHLORIDE 0.9% IV 1,000 ML 999 ML IV CONT (12:17)
[2024-02-09 12:40] VITALS: BP 97/60; PULSE 64; RESP 18; O2SAT 98
--- NOTE | 2024-02-09 13:01 | ED_ITS ---
HPI - General Adult General Chief complaint: Arrhythmia/Palpitations Stated complaint: inc hr Time Seen by Provider: 02/09/24 11:37 Source: patient and family Mode of arrival: EMS Limitations: no limitations History of Present Illness HPI narrative: 28-year-old otherwise healthy here with the complaints of sudden onset palpitations while she was at school. Patient states that for the past 3-4 days she has not been feeling well. She denies any chest pain. No history of shortness of breath. As per EMS patient has short periods of nonsustained V- tach. She was given amiodarone 150 mg bolus is back in normal sinus. Upon arrival to the ER she has no complaints. Onset (ago): hour(s) (1) Relieving factors: none Exacerbating factors: none Associated symptoms: denies other symptoms Related Data Home Medications Medication Instructions Recorded Confirmed No Home Medications 10/23/23 10/23/23 Allergies Allergy/AdvReac Type Severity Reaction Status Date / Time menthol Allergy Unknown Rash Verified 02/09/24 10:51 clindamycin Allergy Rash Verified 02/09/24 10:51 Review of Systems Review of Systems: All systems reviewed & are unremarkable except as noted in HPI and below Constitutional: Constitutional: Reports no additional constitutional complaints Eyes: Eyes: Reports no additional eye complaints ENT: Reports system reviewed and no additional complaints, except as documented Cardiovascular: Cardiovascular: Reports as per HPI Respiratory: Respiratory: Reports no additional respiratory complaints Gastrointestinal: Gastrointestinal: Reports no additional gastrointestinal complaints Musculoskeletal: Musculoskeletal: Reports no additional musculoskeletal complaints Neurologic: Reports system reviewed and no additional complaints, except as documented Psychiatric: Psychiatric: Reports no additional psychiatric complaints [facility] Past Medical History Medical History Anxiety Delivery by section using low vertical uterine incision Surgical History Surgical History H/O breast biopsy 2020 H/O section (~01/21/23) x2 History of dilation and curettage (~03/20/23) [facility]SC D&C removal of retained products. (c/s 01/21/23) History of tonsillectomy [place] teeth removed Family History Family History Grandparent Breast cancer Cerebrovascular accident Other Acute myocardial infarction Father No problems noted. Mother Asthma Sibling No problems noted. Social History Social History Smoking status: Current some day smoker Tobacco type: e-cigarettes/vaping Second hand tobacco smoke exposure: No Alcohol intake: former Alcohol use details: Not since Substance use: never Substance use type: does not use Lack of Transportation: No Lack of Food: Never True Current Housing: I Have Housing Concerned About Future Housing: No Difficulty Paying Gas/Electric Bills: No Difficulty Paying for Meds: No Currently Unemployed: No Education: Trade/Vocational Certificate Difficulty w/ Childcare or Family Care: No Living arrangements: with family Occupation/Education: student 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 HEAD: Normocephalic, atraumatic. EYES: PERRLA and EOMI. ENT: Nares clear, no rhinorrhea or epistaxis. Mucous membranes moist. NECK: Supple. CHEST: Clear to auscultation. No respiratory distress. HEART: Regular rate and rhythm. No murmur heard. Normal peripheral pulses. ABDOMEN: Soft, nontender, nondistended, normal active bowel sounds. EXTREMITIES: Normal range of motion. No edema. SKIN: Warm, dry, no rash. NEURO: No focal deficits. Alert and oriented x3. PSYCH: Normal mood and affect. Course Course Emergency Course: I did review her she done by EMS and appeared to be normal sinus with artifact. On arrival to the ER patient had a repeat EKG which was unremarkable. She has no complaints.at this time. EKG and strips were checked by Dr. Booker no evidence of VTach . Vital Signs Vital signs: Vital Signs Temperature 36.4 C L 02/09/24 10:38 Pulse Rate 76 02/09/24 10:38 Respiratory Rate 16 02/09/24 10:38 Blood Pressure 103/60 02/09/24 10:38 Pulse Oximetry 99 02/09/24 10:38 Oxygen Delivery Room Air 02/09/24 10:38 Temperature 36.4 C L 02/09/24 10:38 Pulse Rate 62 02/09/24 13:21 Respiratory Rate 13 02/09/24 13:21 Blood Pressure 93/55 L 02/09/24 13:21 Pulse Oximetry 98 02/09/24 13:21 Oxygen Delivery Room Air 02/09/24 11:47 Medical Decision Making Vital Signs Vital Signs: Vital Signs Temperature 36.4 C L 02/09/24 10:38 Pulse Rate 76 02/09/24 10:38 Respiratory Rate 16 02/09/24 10:38 Blood Pressure 103/60 02/09/24 10:38 Pulse Oximetry 99 02/09/24 10:38 Oxygen Delivery Room Air 02/09/24 10:38 Temperature 36.4 C L 02/09/24 10:38 Pulse Rate 62 02/09/24 13:21 Respiratory Rate 13 02/09/24 13:21 Blood Pressure 93/55 L 02/09/24 13:21 Pulse Oximetry 98 02/09/24 13:21 Oxygen Delivery Room Air 02/09/24 11:47 Lab Data 02/09/24 11:06 02/09/24 11:06 Labs: Lab Results 02/09/24 Range/Units 11:06 WBC 5.1 (4.5-10.0) K/mm3 RBC 4.71 (4.2-5.4) M/mm3 Hgb 14.1 D (12.0-15.0) g/dL Hct 41.2 (37.0-47.0) % MCV 87.5 (80-100) fl MCH 29.9 (26-34) pg MCHC 34.2 (32-36) g/dl RDW 12.5 (11.5-14.5) % Plt Count 269 (150-375) k/mm3 MPV 11.0 H (7.4-10.4) fl Immature Gran % (Auto) 0.4 (0-0.5) % Neut % (Auto) 76.2 H (45.5-73.1) % Lymph % (Auto) 14.8 L (18.3-44.2) % Falls % (Auto) 7.6 (2.6-8.5) % Eos % (Auto) 0.4 (0-4.4) % Baso % (Auto) 0.6 (0.2-1.2) % Lymph # (Auto) 0.76 L (0.9-3.2) K/mm3 Falls # (Auto) 0.4 (0.1-0.6) K/mm3 Eos # (Auto) 0.0 (0-0.3) K/mm3 Baso # (Auto) 0.0 (0.0-0.1) K/mm3 Abs Immat Gran (auto) 0.02 (0.00-0.031) K/mm3 Absolute Neuts (auto) 3.9 (1.3-6.7) K/mm3 Absolute Nucleated RBC 0.000 (0.0-0.012) K/mm3 Nucleated RBC % 0.0 (0.0-0.2) % Sodium 141 (137-145) mmol/L Potassium 3.3 L (3.4-5.0) mmol/L Chloride 105 (98-107) mmol/L Carbon Dioxide 25 (22-30) mmol/L Anion Gap 11 (4-12) mmol/L BUN 8 (7-17) mg/dL Creatinine 0.60 L (0.7-1.0) mg/dL Estim Creat Clear Calc 85 ml/min Estimated GFR > 60 (59 - ) Glucose 99 (65-110) mg/dL Calcium 9.8 (8.4-10.2) mg/dL Total Bilirubin 1.1 (0.2-1.3) mg/dL AST 23 (14-36) U/L ALT 15 (6-35) U/L Alkaline Phosphatase 68 (38-126) U/L Total Protein 8.0 (6.3-8.2) g/dL Albumin 4.8 (3.5-5.1) g/dL Discharge Plan Discharge Clinical Impression: Palpitations Patient Disposition: Home, Self-Care Condition: Stable Instructions: Heart Palpitations (DC) Additional Instructions: Continue home medications recommend to follow-up with your primary doctor for further evaluation if necessary Prescriptions: No Action No Home Medications Follow-up/Referrals: Diana,Sterling Vines MD [Primary Care Provider] - Time of Disposition: 14:05
[2024-02-09 13:21] VITALS: BP 93/55; PULSE 62; RESP 13; O2SAT 98
[2024-02-09 14:21] VITALS: BP 102/60; PULSE 98; RESP 18; O2SAT 100
== END 2024-02-09 14:23 | disposition home or self-care (01) ==
PROVIDERS: Emergency Provider Family Medicine; PCP Internal Medicine
DX: R00.2 Palpitations (principal); F17.290 Nicotine dependence, other tobacco product, uncomplicated
CPT/HCPCS: 36415; 71046; 80053; 85025; 93005; 96360; 99284; J7030

== ENCOUNTER 2024-06-13 08:50 | Emergency (ER) | payer BC, SELFPAY ==
[2024-06-13 08:56] VITALS: BP 118/84; PULSE 127; RESP 18; TEMP 36.4; O2SAT 100
[2024-06-13 09:02] VITALS: BP 140/83; PULSE 110; RESP 16; TEMP 36.6; O2SAT 100
[2024-06-13 09:20] LABS: BEDSIDEPREGUCG Negative (Negative)
[2024-06-13 09:20] LABS: Basophils Percent Auto 0.2 % (0.2-1.2); Eosinophils Percent Auto 0.1 % (0-4.4); Hematocrit 40.3 % (37.0-47.0); Hemoglobin 13.7 g/dL (12.0-15.0); Immature Granulocyte Absolute 0.02 K/mm3 (0.00-0.031); Immature Granulocyte Percent A 0.2 % (0-0.5); Lymphocytes Absolute Auto 0.57 K/mm3 (0.9-3.2); Lymphocytes Percent Auto 6.3 % (18.3-44.2); Mean Corpuscular Volume 88.4 fl (80-100); Mean Platelet Volume 10.9 fl (7.4-10.4); Monocytes Absolute Auto 0.6 K/mm3 (0.1-0.6); Monocytes Percent Auto 6.5 % (2.6-8.5); Neutrophils Absolute Auto 7.8 K/mm3 (1.3-6.7); Neutrophils Percent Auto 86.7 % (45.5-73.1); Platelet Count Result 250 k/mm3 (150-375); Red Blood Count 4.56 M/mm3 (4.2-5.4); Red Cell Distribution Width 12.5 % (11.5-14.5)
[2024-06-13 09:24] LABS: Add Urine Microscopic? YES; Appearance Urine Cloudy (Clear); Bacteria Urine 1+ /hpf; Bilirubin Urine Negative (Negative); Blood Urine Negative (Negative); Color Urine Yellow (Yellow); Glucose Urine UA Negative (Negative); Ketones Urine 2+ mg/dL (Negative); Leukocyte Esterase Ur Trace LEU/UL (Negative); Nitrate Urine Negative (Negative); Non Pathogenic Casts 0-2; Protein Urine Trace mg/dL (Negative); RBC Urine 0-2 /hpf (0-2); Specific Grav Ur 1.026 (1.001-1.035); Squamous Epithelial Cell Urine Moderate /hpf (Few); WBC Urine 0-5 /hpf (0-3); pH Urine 5.5 (5.0-9.0)
[2024-06-13 09:31] LABS: Alanine Aminotransferase 16 U/L (6-35); Albumin Level 4.8 g/dL (3.5-5.1); Alkaline Phosphatase 69 U/L (38-126); Anion Gap 11 mmol/L (4-12); Aspartate Amino Transferase 20 U/L (14-36); Bilirubin,Total 1.7 mg/dL (0.2-1.3); Blood Urea Nitrogen 9 mg/dL (7-17); Calcium 9.6 mg/dL (8.4-10.2); Carbon Dioxide 23 mmol/L (22-30); Chloride 103 mmol/L (98-107); Estimated CRCL calculation 93 ml/min; Estimated Glomerular Filt Rate > 60; Glucose 92 mg/dL (65-110); Lipase 69 U/L (23-300); Potassium 3.4 mmol/L (3.4-5.0); Sodium 137 mmol/L (137-145)
--- NOTE | 2024-06-13 10:04 | ED.ABDPAIN ---
HPI - Abdominal Pain General Chief Complaint: Abdominal Pain Stated Complaint: right sided abd pain Time Seen by Provider: 06/13/24 09:03 History of Present Illness HPI narrative: Patient is a 29-year-old female who presents to the ER with abdominal pain since Thursday (2 days). She reports the pain came on suddenly and was excruciating for approximately 30 minutes to 1 hour. Since then patient reports the pain has been intermittent but has also been accompanied by nausea, diarrhea, and a migraine headache. Patient reports decreased p.o. intake. She endorses a history of , 1 with retained products of conception and ovarian cysts. Patient denies chest pain, shortness a breath, wheezing, recent fevers. Related Data Home Medications ?Medication ?Instructions ?Recorded ?Confirmed ?Last Taken ?Type No Home Medications 10/23/23 10/23/23 Unknown History Allergies Allergy/AdvReac Type Severity Reaction Status Date / Time menthol Allergy Unknown Rash Verified 06/13/24 09:13 clindamycin Allergy Rash Verified 06/13/24 09:13 Review of Systems Review of Systems: All systems reviewed & are unremarkable except as noted in HPI and below PMFSH Past Medical History Medical History Delivery by section using low vertical uterine incision Anxiety Surgical History Surgical History History of dilation and curettage (~03/20/23) HSC D&C removal of retained products. (c/s 01/21/23) H/O section (~01/21/23) x2 [place] teeth removed History of tonsillectomy H/O breast biopsy 2019 Family History Family History Grandparent Breast cancer Cerebrovascular accident Other Acute myocardial infarction Father No problems noted. Mother Asthma Sibling No problems noted. Social History Social History Smoking status: Current some day smoker Tobacco type: e-cigarettes/vaping Second hand tobacco smoke exposure: No Alcohol intake: former Alcohol use details: Not since Substance use: never Substance use type: does not use Lack of Transportation: No Lack of Food: Never True Current Housing: I Have Housing Concerned About Future Housing: No Difficulty Paying Gas/Electric Bills: No Difficulty Paying for Meds: No Currently Unemployed: No Education: Trade/Vocational Certificate Difficulty w/ Childcare or Family Care: No Living arrangements: with family Occupation/Education: student 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 HEAD: Normocephalic, atraumatic. NECK: Supple. No adenopathy, no masses. RESPIRATORY: Airway patent, respirations nonlabored. Clear to auscultation bilaterally, no rales, rhonchi, wheezing. CARDIOVASCULAR: Regular rate and rhythm without murmurs, rubs, or gallops. Peripheral pulses 2+ and equal bilaterally. ABDOMINAL: Soft, tender RUQ and RLQ, nondistended, no hepatosplenomegaly. + guarding, Normoactive BS. + Alaniz's sign, + bruising in RUQ abdomen MUSCULOSKELETAL: Moves all extremities. Strength/ROM intact without gross deformities. SKIN: Warm, dry, normal color. No rashes. NEURO: A&O X3. Speech clear. Cranial nerves II-XII grossly intact. Steady gait. No ataxic movements. PSYCHIATRIC: Appropriate mood and affect. Normal interaction. Course Vital Signs Vital signs: Vital Signs Temperature 36.4 C 06/13/24 08:56 Pulse Rate 127 H 06/13/24 08:56 Respiratory Rate 18 06/13/24 08:56 Blood Pressure 118/84 06/13/24 08:56 Pulse Oximetry 100 06/13/24 08:56 Oxygen Delivery Room Air 06/13/24 08:56 Temperature 36.6 C 06/13/24 09:02 Pulse Rate 77 06/13/24 14:29 Respiratory Rate 14 06/13/24 14:29 Blood Pressure 113/74 06/13/24 14:29 Pulse Oximetry 100 06/13/24 14:29 Oxygen Delivery Room Air 06/13/24 09:02 MDM - Abdominal Pain MDM Narrative Medical decision making narrative: Patient is a 29-year-old female who presents to the ER with abdominal pain since Thursday (2 days). She reports the pain came on suddenly and was excruciating for approximately 30 minutes to 1 hour. Since then patient reports the pain has been intermittent but has also been accompanied by nausea, diarrhea, and a migraine headache. Patient reports decreased p.o. intake. She endorses a history of , 1 with retained products of conception and ovarian cysts. Patient denies chest pain, shortness a breath, wheezing, recent fevers. Labs Ordered: CBC, CMP, lipase, UA, INR, APTT, troponin Imaging Ordered: CT abdomen pelvis scan, vaginal US Medications Ordered: 1 L normal saline IV bolus, Zofran 4 mg IV, Dilaudid 0.5 mg IV Results: CT abdomen/pelvis scan The visualized portions of the lung bases are clear without pneumonia or pleural effusion. The heart size is normal. No pericardial effusion. The liver, spleen, pancreas, and adrenal glands are normal. There are cysts in the kidneys measuring up to 5 mm on the left. There are no dilated loops of bowel. The appendix is normal. There are no pathologically enlarged lymph nodes. There is physiologic fluid in the peritoneum. In the right upper quadrant anterior abdominal wall, there is a 8.1 x 2.6 x 6.4 cm subcutaneous mass of fat stranding with associated enlarged blood vessels. The left ovarian vein is enlarged, consistent with pelvic venous insufficiency. There is thoracolumbar levoscoliosis. Pt's US indicates no acute abnormalities. Diagnosis: subcutaneous fat mass, lower abdominal pain Consults: general surgery 1300-General surgery called back. They will follow-up with pt as an outpatient. Patient Education/Shared MDM: Results shared with patient. She endorses improvement following medication administration. Patient strongly advised to maintain hydration status upon discharge and follow-up with her PCP. She should also follow-up with general surgery as advised by the [employer]. Pt will be discharged home with prescription for Bentyl. Strict return precautions provided. Patient verbalized understanding is in agreement with plan. Vital signs stable at time of discharge. All questions answered. Differential Diagnosis Differential diagnosis: Likely abdominal pain, acute appendicitis, calculus of kidney, diverticulitis, gastroenteritis, pancreatitis and small bowel obstruction Lab Data Attestation: I reviewed the patient's lab results. 06/13/24 09:15 06/13/24 09:15 Labs: Lab Results 06/13/24 06/13/24 06/13/24 Range/Units 09:13 09:15 10:25 WBC 9.0 (4.5-10.0) K/mm3 RBC 4.56 (4.2-5.4) M/mm3 Hgb 13.7 (12.0-15.0) g/dL Hct 40.3 (37.0-47.0) % MCV 88.4 (80-100) fl MCH 30.0 (26-34) pg MCHC 34.0 (32-36) g/dl RDW 12.5 (11.5-14.5) % Plt Count 250 (150-375) k/mm3 MPV 10.9 H (7.4-10.4) fl Immature Gran % (Auto) 0.2 (0-0.5) % Neut % (Auto) 86.7 H (45.5-73.1) % Lymph % (Auto) 6.3 L (18.3-44.2) % Stark % (Auto) 6.5 (2.6-8.5) % Eos % (Auto) 0.1 (0-4.4) % Baso % (Auto) 0.2 (0.2-1.2) % Lymph # (Auto) 0.57 L (0.9-3.2) K/mm3 Stark # (Auto) 0.6 (0.1-0.6) K/mm3 Eos # (Auto) 0.0 (0-0.3) K/mm3 Baso # (Auto) 0.0 (0.0-0.1) K/mm3 Abs Immat Gran (auto) 0.02 (0.00-0.031) K/mm3 Absolute Neuts (auto) 7.8 H (1.3-6.7) K/mm3 Absolute Nucleated RBC 0.000 (0.0-0.012) K/mm3 Nucleated RBC % 0.0 (0.0-0.2) % PT 13.7 (11.1-14.7) Seconds INR 1.0 APTT 26.7 (22.3-36.8) Seconds Sodium 137 (137-145) mmol/L Potassium 3.4 (3.4-5.0) mmol/L Chloride 103 (98-107) mmol/L Carbon Dioxide 23 (22-30) mmol/L Anion Gap 11 (4-12) mmol/L BUN 9 (7-17) mg/dL Creatinine 0.54 L (0.7-1.0) mg/dL Estim Creat Clear Calc 93 ml/min Estimated GFR > 60 (59 - ) Glucose 92 (65-110) mg/dL Calcium 9.6 (8.4-10.2) mg/dL Total Bilirubin 1.7 H (0.2-1.3) mg/dL AST 20 (14-36) U/L ALT 16 (6-35) U/L Alkaline Phosphatase 69 (38-126) U/L Troponin I < 0.012 (0.000-0.034) ng/mL Total Protein 8.0 (6.3-8.2) g/dL Albumin 4.8 (3.5-5.1) g/dL Lipase 69 (23-300) U/L Urine Color Yellow (Yellow) Urine Appearance Cloudy H (Clear) Urine pH 5.5 (5.0-9.0) Ur Specific [place] 1.026 (1.001-1.035) Urine Protein Trace (Negative) mg/dL Urine Glucose (UA) Negative (Negative) mg/dL Urine Ketones 2+ H (Negative) mg/dL Ur Blood (Man) Negative (Negative) Urine Nitrate Negative (Negative) Urine Bilirubin Negative (Negative) Urine Urobilinogen 1.0 (<2.0) mg/dL Leukocyte Esterase Rfl Trace H (Negative) TAMIKO/UL Urine RBC 0-2 (0-2) /hpf Urine WBC 0-5 (0-3) /hpf Ur Squamous Epith Cells Moderate (Few) /hpf Urine Bacteria 1+ H /hpf Urine Casts 0-2 POC Urine HCG, Qual Negative (Negative) Influenza A (RT-PCR) Negative (Negative) Influenza B (RT-PCR) Negative (Negative) RSV (RT-PCR) Negative (Negative) SARS-CoV-2 RNA (RT-PCR) Negative (Negative) Imaging Data Attestation: I personally reviewed and interpreted this imaging study as follows: Radiologist's impression: ITS Impressions Abdomen/Pelvis CT 06/13/24 10:21 IMPRESSION: 1. 8.1 cm subcutaneous mass in right anterior abdominal wall, which may be a venous malformation. Liposarcoma is not excluded. Ultrasound-guided core needle biopsy is recommended. 2. Pelvic venous insufficiency. Pelvic/Transvag US 06/13/24 14:41 IMPRESSION: 1. Normal pelvis. Discharge Plan Discharge Clinical Impression: Dehydration, mild, Abdominal pain Instructions: Antibiotic Form Patient Language: Filipino Prescriptions: No Action No Home Medications Follow-up/Referrals: Diana,Sterling Vines MD [Primary Care Provider] -
[2024-06-13] MEDS: SODIUM CHLORIDE 0.9% IV 1,000 ML 999 ML IV CONT (10:20)
[2024-06-13] MEDS: ONDANSETRON INJ 4 MG/2 ML VIAL IV PUSH (10:20)
[2024-06-13] MEDS: HYDROmorphone HCL INJ (*CRX) 1 MG/ML SYR 0.5 MG IV PUSH (10:21)
[2024-06-13 10:23] VITALS: BP 129/83; PULSE 102; RESP 16; O2SAT 100
[2024-06-13 10:31] LABS: Prothrombin Time 13.7 Seconds (11.1-14.7)
[2024-06-13 10:32] LABS: Partial Thromboplastin Time 26.7 Seconds (22.3-36.8)
[2024-06-13 10:40] LABS: Troponin I < 0.012 ng/mL (0.000-0.034)
[2024-06-13 11:07] LABS: Influenza A QL RT-PCR Negative (Negative); Influenza B QL RT-PCR Negative (Negative); RSV RNA, RT-PCR Negative (Negative); SARS-CoV-2 RNA PCR Negative (Negative)
[2024-06-13 11:37] VITALS: BP 110/76; PULSE 98; RESP 18; O2SAT 100
--- NOTE | 2024-06-13 13:30 | PM.CNGS ---
Assessment and Plan Assessment and plan (1) Abdominal wall mass: Code(s): R22.2 - Localized swelling, mass and lump, trunk Status: Acute Assessment and Plan: There is a soft, mobile subcutaneous abdominal wall mass in the RUQ that correlates with the CT findings. This has been present for at least 2 years and she has noticed some tenderness and pain with certain movements in this area. This is different than the pelvic pain she experienced which brought her into the ED. This appears to be a completely separate issues and is not contributing to her pelvic pain. We would recommend setting her up as an outpatient for an US-guided core needle biopsy of the mass and we will have her follow-up with Dr. Ruiz after this test to discuss results and further plan. Discussed the plan with the patient who understands and agrees. Plan I have discussed the patient's case and plan of care with Dr. Ruiz. History of Present Illness Consult details Consult date: 06/13/24 Reason for consult: other (RLQ abdominal mass) Requesting physician: Kanika Foster APRN Narrative: This is a 29-year-old woman who presented to the ED with complaints of right pelvic pain x2 days. She reports waking up in the night two days ago with this pain. Her pain improved, but became worse again this morning, therefore she came into the ER for evaluation. She has a history of PCOS and felt like this pain was similar to pelvic pain she has experienced in the past and was concerned about an ovarian cyst. Labs showed a normal WBC count. CT scan of the abdomen and pelvis showed a subcutaneous 8.1 cm mass in the right anterior abdominal wall, which may be a venous malformation, liposarcoma not excluded, recommending US-guided core needle biopsy. Also seen is pelvic venous insufficiency. Our service was then consulted by the ED physician for evaluation. The patient was seen in the ED. She reports noticing a lump in the right upper quadrant, which has been present for 2 years or more. She denies having any imaging of this mass in the past and has shown her primary care provider that suggested it was nothing to worry about. She does not believe that the mass has grown in the past 2 years, but over the past few months she has noticed some mild pain in this area when taking a deep breath or with certain movements. Over the past few weeks, that pain has steadily increased and is more painful with different positions, but tolerable. She tells me this pain is completely separate from the pelvic pain she experienced over the past 2 days and this is not the reason she presented to the ED today. Review of Systems Review of Systems: All systems reviewed & are unremarkable except as noted in HPI and below PMFSH Past Medical History Medical History Delivery by section using low vertical uterine incision Anxiety Surgical History Surgical History History of dilation and curettage (~03/20/23) HSC D&C removal of retained products. (c/s 01/21/23) H/O section (~01/21/23) x2 [place] teeth removed History of tonsillectomy H/O breast biopsy 2020 Family History Family History Grandparent Breast cancer Cerebrovascular accident Other Acute myocardial infarction Father No problems noted. Mother Asthma Sibling No problems noted. Social History Social History Smoking status: Current some day smoker Tobacco type: e-cigarettes/vaping Second hand tobacco smoke exposure: No Alcohol intake: former Alcohol use details: Not since Substance use: never Substance use type: does not use Lack of Transportation: No Lack of Food: Never True Current Housing: I Have Housing Concerned About Future Housing: No Difficulty Paying Gas/Electric Bills: No Difficulty Paying for Meds: No Currently Unemployed: No Education: Trade/Vocational Certificate Difficulty w/ Childcare or Family Care: No Living arrangements: with family Occupation/Education: student 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) Gender identity (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 by the patient): Female Sexual Orientation (if Verbalized by the Patient): Straight or Heterosexual Spiritual care concerns: No Meds Home Medications and Allergies Home Medications ?Medication ?Instructions ?Recorded ?Confirmed ?Type dicyclomine 10 mg capsule 10 mg PO TID #14 caps 06/13/24 Rx hydrocodone 5 mg-acetaminophen 325 1 tablet PO Q6H PRN pain #8 tabs 06/13/24 Rx mg tablet Allergies Allergy/AdvReac Type Severity Reaction Status Date / Time menthol Allergy Unknown Rash Verified 06/13/24 09:13 clindamycin Allergy Rash Verified 06/13/24 09:13 Vital Signs Vital Signs - 24 hr 06/13/24 08:56 06/13/24 09:02 06/13/24 10:23 Temperature 97.6 F 98 F Pulse Rate 127 H 110 H 102 H Respiratory Rate 18 16 16 Blood Pressure 118/84 140/83 129/83 Pulse Oximetry 100 100 100 Oxygen Delivery Room Air Room Air 06/13/24 11:37 Temperature Pulse Rate 98 Respiratory Rate 18 Blood Pressure 110/76 Pulse Oximetry 100 Oxygen Delivery Exam Const: General: comfortable and no acute distress Nutritional Appearance: average body habitus Orientation/consciousness: patient oriented x3 HENMT: Head: normocephalic and atraumatic Ears: hearing grossly normal bilaterally Mouth: Yes moist mucous membranes Eyes: General: appearance normal, both eyes and all related structures Pupils: Equal, round and reactive pupils present Neck: Neck: normal visual inspection and full ROM Resp: Effort & Inspection: no respiratory distress Auscultation: clear to auscultation bilaterally Cardio: Rate: regular rate Rhythm: regular rhythm Peripheral pulses: Peripheral pulses 2+ throughout GI: Inspection: non-distended GI Palp: Yes Soft to palpation, Yes Tenderness to palpation present (GI) (suprapubic tenderness), No Guarding due to palpation present (GI), Yes No hepatosplenomegaly present, Yes Palpable mass present (soft, mobile mass in the RUQ (almost subcostal) that is c/w the CT findings) and Yes Other GI palpation findings present (no overlying skin changes over the mass, no redness, nontender) Auscultation: normal bowel sounds Skin: General skin exam: normal color Neuro: General: moves all extremities and no focal motor deficits Speech: normal speech Motor exam (neuro): 5/5 motor strength present throughout Extrem: General: normal to inspection and no edema Psych: Mental Status: mental status grossly normal Attitude: cooperative Insight: Good insight present (Psych) Judgement: Good judgement present (Psych) Results Labs 06/13/24 09:15 06/13/24 09:15 Labs: Abnormal lab results 06/13/24 Range/Units 09:15 MPV 10.9 H (7.4-10.4) fl Neut % (Auto) 86.7 H (45.5-73.1) % Lymph % (Auto) 6.3 L (18.3-44.2) % Lymph # (Auto) 0.57 L (0.9-3.2) K/mm3 Absolute Neuts (auto) 7.8 H (1.3-6.7) K/mm3 Creatinine 0.54 L (0.7-1.0) mg/dL Total Bilirubin 1.7 H (0.2-1.3) mg/dL Urine Appearance Cloudy H (Clear) Urine Ketones 2+ H (Negative) mg/dL Leukocyte Esterase Rfl Trace H (Negative) TAMIKO/UL Urine Bacteria 1+ H /hpf Diabetes panel 06/13/24 Range/Units 09:15 Sodium 137 (137-145) mmol/L Potassium 3.4 (3.4-5.0) mmol/L Chloride 103 (98-107) mmol/L Carbon Dioxide 23 (22-30) mmol/L BUN 9 (7-17) mg/dL Creatinine 0.54 L (0.7-1.0) mg/dL Glucose 92 (65-110) mg/dL Calcium 9.6 (8.4-10.2) mg/dL AST 20 (14-36) U/L ALT 16 (6-35) U/L Alkaline Phosphatase 69 (38-126) U/L Total Protein 8.0 (6.3-8.2) g/dL Albumin 4.8 (3.5-5.1) g/dL Calcium panel 06/13/24 Range/Units 09:15 Calcium 9.6 (8.4-10.2) mg/dL Albumin 4.8 (3.5-5.1) g/dL Pituitary panel 06/13/24 Range/Units 09:15 Sodium 137 (137-145) mmol/L Potassium 3.4 (3.4-5.0) mmol/L Chloride 103 (98-107) mmol/L Carbon Dioxide 23 (22-30) mmol/L BUN 9 (7-17) mg/dL Creatinine 0.54 L (0.7-1.0) mg/dL Glucose 92 (65-110) mg/dL Calcium 9.6 (8.4-10.2) mg/dL Adrenal panel 06/13/24 Range/Units 09:15 Sodium 137 (137-145) mmol/L Potassium 3.4 (3.4-5.0) mmol/L Chloride 103 (98-107) mmol/L Carbon Dioxide 23 (22-30) mmol/L BUN 9 (7-17) mg/dL Creatinine 0.54 L (0.7-1.0) mg/dL Glucose 92 (65-110) mg/dL Calcium 9.6 (8.4-10.2) mg/dL Total Bilirubin 1.7 H (0.2-1.3) mg/dL AST 20 (14-36) U/L ALT 16 (6-35) U/L Alkaline Phosphatase 69 (38-126) U/L Total Protein 8.0 (6.3-8.2) g/dL Albumin 4.8 (3.5-5.1) g/dL All other labs normal. Imaging Additional studies: ITS Impressions Abdomen/Pelvis CT 06/13/24 10:21 IMPRESSION: 1. 8.1 cm subcutaneous mass in right anterior abdominal wall, which may be a venous malformation. Liposarcoma is not excluded. Ultrasound-guided core needle biopsy is recommended. 2. Pelvic venous insufficiency. Pelvic/Transvag US 06/13/24 14:41 IMPRESSION: 1. Normal pelvis.
[2024-06-13 14:29] VITALS: BP 113/74; PULSE 77; RESP 14; O2SAT 100
[2024-06-13 15:32] VITALS: BP 112/74; PULSE 86; RESP 13; TEMP 36.6; O2SAT 100
== END 2024-06-13 15:35 | disposition home or self-care (01) ==
PROVIDERS: Emergency Medicine; Emergency Provider Registered Nurse; PCP Internal Medicine
DX: R19.01 Right upper quadrant abdominal swelling, mass and lump (principal); R10.9 Unspecified abdominal pain; E86.0 Dehydration; Z20.822 Contact with and (suspected) exposure to COVID-19; F17.290 Nicotine dependence, other tobacco product, uncomplicated; I87.2 Venous insufficiency (chronic) (peripheral)
CPT/HCPCS: 36415; 74177; 76830; 76856; 80053; 81001; 81025; 83690; 84484; 85025; 85610; 85730; 87637; 93005; 96361; 96374; 96375; 99284; J1171; J2405; J7030; Q9967

== ENCOUNTER 2024-06-29 01:06 | Day surgery (SDC) | payer BC, SELFPAY ==
[2024-06-22 09:13] VITALS: BMI 23.6
--- NOTE | 2024-06-22 09:21 | PC.NURSE ---
Report to the Outpatient Waiting Room, entrance under the green pavilion located off [facility], at time _0930_ on date _[id number]_. Planned Procedure Time: _1130_.? Time changes happen often and if your time is changed the preop area will call you the afternoon before. - You and your visitor will be asked to self-screen and do not enter if you have any COVID symptoms. Please call surgeon if you need to reschedule. - A mask is optional within the hospital at this time. Patients may have clear liquids (water, carbonated beverages, clear teas, apple juice) until 3 hours prior to surgery with a maximum of 20 ounces. - No food from midnight until time of surgery and no smoking, or chewing tobacco (or any form of nicotine). No chewing gum, candy or mints. Take only the following medications with a SIP of water on the morning of surgery: ___None DO NOT STOP ANY OF YOUR OTHER PRESCRIPTION MEDICATIONS PRIOR TO SURGERY EXCEPT THE FOLLOWING Hold all vitamins and supplements for 3 days per anesthesiologist. Medications to discontinue per physician Date to take last dose Please no make-up, nail qatari, hairspray, perfume, deodorant, or body powder the day of surgery.? No jewelry (including any body piercings) or valuables the day of surgery, leave them at home.? Please take a shower or bath the night before, or the morning of, surgery with an antibacterial soap.? Wear comfortable, loose fitting clothing.? - Jewelry must be removed prior to entering the operating room.? Rings and piercings that are not removed may be cut off. - The hospital will not accept responsibility for valuables.? - Please leave all valuables, including medications, at home the day of surgery. If you are going home after surgery, a licensed coach tour driver must drive you home.? - NO public transportation without another adult if you receive anesthesia. - We recommend that an adult stay with you for 24 hours following discharge. - We also recommend that you do not drive, make important decision, drink alcoholic beverages, or take any drugs that were not prescribed by your health care provider for at least 24 hours after your discharge time. Follow any additional instructions given to you from your surgeon. Telephone instructions given to __Lisbet__and asked if any additional questions and then verbalized understanding. Patient advised to call surgeon office or pre surgery nurse liaison [phone] if any additional questions.
[2024-06-29] VITALS (8 sets, daily range): BP systolic 92–102; BP diastolic 53–79; PULSE 58–91; RESP 14–18; TEMP 36.1–36.6; O2SAT 99–100; BMI 23.6
[2024-06-29] MEDS: LACTATED RINGERS 1,000 ML 30 ML IV CONT ×2 (09:45→12:50)
[2024-06-29 09:54] LABS: BEDSIDEPREGUCG Negative (Negative)
--- NOTE | 2024-06-29 10:54 | WPDANESEPPF ---
Anes - Initial Pre Proc Eval Procedure: Operation Date: 06/29/24 11:30 Proposed Procedures p Excisional Biopsy of Right Anterior Abdominal Wall Mass - Joanna Ruiz MD Date/Time: 06/29/24 10:54 Surgeon: Joanna Ruiz MD Pre Op Diagnosis: 9x7cm (right anterior abdominal wall mass) Patient Data Age: 29 Gender: F Height: 1.52 m Weight: 54.8 kg Last Vital Signs Temp 36.6 C 06/29/24 09:26 Pulse 68 06/29/24 09:26 Resp 14 06/29/24 09:26 BP 100/63 06/29/24 09:26 Pulse Ox 100 06/29/24 09:26 O2 Del Method Room Air 06/29/24 09:26 Allergies Allergy/AdvReac Type Severity Reaction Status Date / Time menthol Allergy Unknown Rash Verified 06/29/24 09:22 clindamycin Allergy Rash Verified 06/29/24 09:22 doxycycline AdvReac Intermediate Vomiting Verified 06/29/24 09:22 Home Medications ?Medication ?Instructions ?Recorded ?Confirmed ?Type No Home Medications 06/22/24 06/22/24 History Laboratory Tests 06/29/24 09:52 POC Urine HCG, Qual Negative (Negative) Patient hx anesthesia problems: none Family hx anesthesia problems: none Results Review: All pre-operative results and documents have been reviewed as part of the pre-operative evaluation. [facility] Past Medical History Medical History (Updated 06/29/24 @ 10:54 by Elias Cruz MD) Anxiety Surgical History Surgical History History of dilation and curettage (~03/20/23) HSC D&C removal of retained products. (c/s 01/21/23) H/O section (~01/21/23) x2 [place] teeth removed History of tonsillectomy H/O breast biopsy 2019 Family History Family History Grandparent Breast cancer Cerebrovascular accident Other Acute myocardial infarction Father No problems noted. Mother Asthma Sibling No problems noted. Social History Social History Smoking status: Current some day smoker Tobacco type: e-cigarettes/vaping Second hand tobacco smoke exposure: No Alcohol intake: current Alcohol use details: Not since Substance use: never Substance use type: does not use Lack of Transportation: No Lack of Food: Never True Current Housing: I Have Housing Concerned About Future Housing: No Difficulty Paying Gas/Electric Bills: No Difficulty Paying for Meds: No Currently Unemployed: No Education: Trade/Vocational Certificate Difficulty w/ Childcare or Family Care: No Living arrangements: with family Occupation/Education: 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 Informed Consent: The patient's anesthetic plan and its attendant risks and benefits were discussed with the patient/family/POA. Questions were solicited and answers provided to the satisfaction of the patient/family/POA.
--- NOTE | 2024-06-29 11:12 | WPDHPUPDATE1 ---
History and Physical Update Update Date/Time: 06/29/24 11:12 History and Physical has been reviewed, including an updated exam of the patient. There are NO changes in the patient's condition. Risks, benefits, and alternatives have been discussed and questions answered. Patient agrees to proceed with procedure.
[2024-06-29] MEDS: ceFAZolin 2 GM/D5W 50 ML 2 GM/50 ML BAG IVPB (12:10)
--- NOTE | 2024-06-29 12:58 | W.PM.PROC2 ---
Procedure Note - Detailed Date of Procedure 06/29/24 Pre-op Diagnosis Right upper quadrant abdominal wall subcutaneous mass Post-op Diagnosis Same Procedure Performed excisional biopsy right upper quadrant abdominal wall subcutaneous mass measuring 12 x 6.5 cm Surgeon Joanna Ruiz MD Anesthesia General and Local Indications 29-year-old female presenting to the office with a large right upper quadrant subcutaneous mass. She reports that is being slowly growing in size over the last year and is quite symptomatic. Findings 12 x 6.5 cm right upper quadrant abdominal wall subcutaneous mass Description of Procedure The patient was taken to the operating room placed in the supine position. After adequate induction general anesthesia, the patient was prepped and draped in the normal sterile fashion. A time-out was then done to verify the patient's identity, as well as the procedure being performed. I then localized the area in and around this mass in the right upper quadrant the abdominal wall. A 15 blade scalpel then used to make an incision over the mass. This was carried through the dermis and into the subcutaneous tissue. A large well encapsulated mass was noted in the deeper subcutaneous tissue. This mass was noted to be multi lobular and was located in the deep subcutaneous tissue but not extending into the anterior fascia. Using very careful dissection both bluntly and with the Bovie cautery, I was able to excise this mass in full. In the posterior area of the mass, there was noted to be a vascular pedicle and this was ligated. Once the mass was removed, it measured 12 x 6.5 cm. It was sent to pathology for further review. I then copiously irrigated the cavity and no other pathology was noted. Further local anesthetic was placed. The subcutaneous tissue was closed with 3-0 Vicryl suture. The skin was closed with 4-0 Monocryl subcuticular suture. Dermabond was then placed on the wound. The patient tolerated the procedure well. She was extubated in the operating room postoperatively. She will be sent to the recovery room in stable condition. Implants none Estimated Blood Loss 10 Drains No Packing No Pathology Yes Complications No immediate complications Condition Stable Disposition PACU [facility] Billing Surgery - Charge Forward: Surgery Billing
[2024-06-29] MEDS: oxyCODONE HCL (*CRX) 5 MG TAB IR PO (13:55)
== END 2024-06-29 14:42 | disposition home or self-care (01) ==
PROVIDERS: PCP Internal Medicine; Visit Provider Surgery
PROC: (CPT 11406; principal; 2024-06-29 11:30)
DX: D17.5 Benign lipomatous neoplasm of intra-abdominal organs (principal); F41.9 Anxiety disorder, unspecified; F17.290 Nicotine dependence, other tobacco product, uncomplicated; Z98.890 Other specified postprocedural states; Z80.3 Family history of malignant neoplasm of breast; Z82.49 Family history of ischemic heart disease and other diseases of the circulatory system
CPT/HCPCS: 11406; 88304; 88342; A9270; J0690; J1100; J2250; J2405; J2704; J3010; J7120

== ENCOUNTER 2024-09-21 08:29 | Outpatient (CLI) | payer BC, SELFPAY ==
--- OUTSIDE RECORDS SUMMARY | 2024-09-21 08:48 | XMS_ITS | Clinical Summary ---
Author Organization [facility] Address [address] [place] [address] Care Team Providers Care Tile Grader Name Role Phone Unavailable Primary Care Provider Unavailabl e Source Comments [facility],non-owned Affiliates and Associated Physician Practices is amultiple site organization consisting of ambulatory clinics and hospital sitesin [place], [place], [place] and [place]. This disclosure is being madepursuant to the Care Everywhere program and may not contain all information available regarding this patient. Last updated 18.[facility] Allergies No known active allergies Medications * Be aware that medications may not be up to date on this document. Alwaysverify current medications with the patient. 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 Gender Identity Not on file Sexual Orientation Not on file Last Filed Vital Signs Vital Sign Reading Time Taken Comments Blood Pressure - - Pulse - - Temperature - - Respiratory Rate - - Oxygen Saturation - - Inhaled Oxygen Concentration - - Weight 42.5 kg (93 lb 9.6 oz) 08/20/2009 2:06 PM CDT Height 152.4 cm (5') 08/20/2009 2:06 PM CDT Body Mass Index 18.28 08/20/2009 2:06 PM CDT Plan of Treatment Health Maintenance Due Date Last Done Comments PAP SMEAR 1995 HIV SCREENING 2010 HEPATITIS C SCREENING 05/20/2013 DTAP/TDAP/TD VACCINES (1 - Tdap) 2014 HEPATITIS B VACCINE (1 of 3 - 19+ 3-dose series) 2014 COVID-19 VACCINE (1 - 2023-2 5 season) 2023 DEPRESSION SCREENING 04/13/2024 INFLUENZA VACCINE (Season Ended) 2024 ZOSTER VACCINE (1 of 2) 2045 HIB VACCINE Aged Out No longer eligi ble based on patient's age to complete this topic HPV VACCINE Aged Out No longer eligi ble based on patient's age to complete this topic MENINGOCOCCAL (Group B) VACC INE SHARED DECISION-MAKING Aged Out No longer eligibl e based on patient's age to complete this topic MENINGOCOCCAL GROUPS A/C/Y/W VACCINE Aged Out No longer eligible b ased on patient's age to complete this topic PNEUMOCOCCAL VACCINE Aged Out No long er eligible based on patient's age to complete this topic Insurance [facility] * Guarantor: THIEN VASQUEZ Account Type Relation to Patient Date of Phone Billing Address Personal/Family Spouse
[2024-09-21 08:59] LABS: Hematocrit 41.7 % (37.0-47.0); Hemoglobin 13.8 g/dL (12.0-15.0); Mean Corpuscular HGB Conc 33.1 g/dl (32-36); Mean Corpuscular Hemoglobin 30.1 pg (26-34); Mean Corpuscular Volume 90.8 fl (80-100); Mean Platelet Volume 10.3 fl (7.4-10.4); Platelet Count Result 258 k/mm3 (150-375); Red Blood Count 4.59 M/mm3 (4.2-5.4); Red Cell Distribution Width 12.9 % (11.5-14.5)
[2024-09-21 09:16] LABS: Alanine Aminotransferase 14 U/L (6-35); Albumin Level 4.9 g/dL (3.5-5.1); Alkaline Phosphatase 56 U/L (38-126); Anion Gap 11 mmol/L (4-12); Aspartate Amino Transferase 23 U/L (14-36); Bilirubin,Total 1.1 mg/dL (0.2-1.3); Blood Urea Nitrogen 9 mg/dL (7-17); Calcium 9.3 mg/dL (8.4-10.2); Carbon Dioxide 24 mmol/L (22-30); Chloride 105 mmol/L (98-107); Cholesterol 184 mg/dL (0-200); Estimated Glomerular Filt Rate > 60; Glucose 95 mg/dL (65-110); HDL Direct 58 mg/dL; Potassium 3.8 mmol/L (3.4-5.0); Sodium 140 mmol/L (137-145); Triglycerides 50 mg/dL (<150)
[2024-09-21 09:28] LABS: LDL Cholesterol Direct 92 mg/dL
[2024-09-21 09:44] LABS: Iron 112 ug/dL (37-170)
[2024-09-21 10:03] LABS: Percent Iron Saturation 29 % (20-50)
[2024-09-21 10:19] LABS: Vitamin D 25 Hydroxy 34.2 ng/mL
[2024-09-21 10:32] LABS: Folic Acid 6.7 ng/mL (2.76->20)
== END 2024-09-21 08:30 | disposition home or self-care (01) ==
LOC: ANHLAB 08:31
PROVIDERS: PCP Nurse Practitioner Family; Visit Provider Nurse Practitioner Family
DX: F41.9 Anxiety disorder, unspecified (principal); R00.2 Palpitations; R00.0 Tachycardia, unspecified; K21.9 Gastro-esophageal reflux disease without esophagitis; R11.0 Nausea; G43.909 Migraine, unspecified, not intractable, without status migrainosus; R20.2 Paresthesia of skin; R42 Dizziness and giddiness; R61 Generalized hyperhidrosis; Z76.89 Persons encountering health services in other specified circumstances; Z00.00 Encounter for general adult medical examination without abnormal findings; E53.8 Deficiency of other specified B group vitamins; E61.1 Iron deficiency; Z13.220 Encounter for screening for lipoid disorders; E55.9 Vitamin D deficiency, unspecified
CPT/HCPCS: 36415; 80053; 80061; 82306; 82607; 82728; 82746; 83540; 83550; 84443; 85027

== ENCOUNTER 2024-11-02 11:24 | Outpatient (CLI) | payer BC, SELFPAY ==
--- OUTSIDE RECORDS SUMMARY | 2024-11-02 11:29 | XMS_ITS | Clinical Summary ---
Author Organization [facility] Address [address] [place] [address] Care Team Providers Care Hot Stick Worker Name Role Phone Unavailable Primary Care Provider Unavailabl e Source Comments [facility],non-owned Affiliates and Associated Physician Practices is amultiple site organization consisting of ambulatory clinics and hospital sitesin [place], [place], [place]. This disclosure is being madepursuant to the Care Everywhere program and may not contain all information available regarding this patient. 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 Gender Identity Not on file Sexual Orientation [...] Health Maintenance Due Date Last Done Comments HIV SCREENING 2010 HEPATITIS C SCREENING 05/20/2013 DTAP/TDAP/TD VACCINES (1 - Tdap) 2014 HEPATITIS B VACCINE (1 of 3 - 19+ 3-dose series) 2014 PAP SMEAR 2016 HPV VACCINE (1 - 3-dose SCDM series) 2022 COVID-19 VACCINE (1 - 2023-2 5 season) 2023 DEPRESSION SCREENING 04/13/2024 INFLUENZA VACCINE (#1) 2024 ZOSTER VACCINE (1 of 2) 2045 [...] patient's age to complete this topic Insurance [facility] * Guarantor: THIEN VASQUEZ Account Type Relation to Patient Date of Phone Billing Address Personal/Family Spouse
--- NOTE | 2024-11-14 16:26 | WPDHOLTEREM ---
Holter/Event Monitor Holter/Event Monitor Date of procedure: 11/02/24 Holter/Event Procedure: 3-7 Day Holter Monitor Indications: Palpitations Conclusion: 1. 3 days holter monitor on 11/02/24. 2. Underlying rhythm is sinus rhythm. HR range 48-157 bpm; average HR 73 bpm. HR at 48 bpm was on 11/04/24 at 12:04 am. HR at 157 bpm was on 11/03/24 at 2:09 pm. 3. There are rare premature supraventricular complexes. No supraventricular tachycardia. 4. No premature ventricular complexes. No ventricular tachycardia. 5. No significant pauses greater than 3 seconds. 6. Patient reports 3 episodes of symptoms of lightheadedness, fluttering, shortness of breath, shakiness which demonstrate sinus rhythm, HR range 54-85 bpm with 1 episode with PAC's.
== END 2024-11-02 11:25 | disposition home or self-care (01) ==
PROVIDERS: PCP Nurse Practitioner Family; Visit Provider Nurse Practitioner Family
DX: R00.2 Palpitations (principal); R00.0 Tachycardia, unspecified; R42 Dizziness and giddiness; R61 Generalized hyperhidrosis; R20.2 Paresthesia of skin
CPT/HCPCS: 93242

== ENCOUNTER 2024-11-04 10:56 | Emergency (ER) | payer BC, SELFPAY ==
[2024-11-04] VITALS (14 sets, daily range): BP systolic 103–144; BP diastolic 71–87; PULSE 69–104; RESP 12–22; TEMP 36.7; O2SAT 99–100
--- OUTSIDE RECORDS SUMMARY | 2024-11-04 10:58 | XMS_ITS | Clinical Summary ---
Author Organization [facility] Address [address] [place] [address] Care Team Providers Care Insurance Claim Approver Name Role Phone Unavailable Primary Care Provider Unavailabl e Source Comments [facility],non-owned Affiliates and Associated Physician Practices is amultiple site organization consisting of ambulatory clinics and hospital sitesin [place], [place], [place] and [place]. This disclosure is being madepursuant to the Care Everywhere program and may not contain all information available regarding this patient. 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
--- NOTE | 2024-11-04 10:59 | ECG_ITS ---
Test Date: 2024-11-04 11:04:34 Measurements Intervals [place] Rate: 79 P: 57 VT: 124 QRS: 33 QRSD: 98 T: 49 QT: 368 QTc: 424 Interpretive Statements SINUS RHYTHM Compared to ECG 06/13/2024 10:25:20 Sinus tachycardia no longer present Electronically Signed On 11-05-2024 18:35:34 CDT by Dorian Forbes M.D.
--- NOTE | 2024-11-04 11:14 | ED_ITS ---
HPI - General Adult General Chief complaint: Arrhythmia/Palpitations Stated complaint: palpitations, dizziness, near syncope yesterday Time Seen by Provider: 11/04/24 10:59 History of Present Illness HPI narrative: 29-year-old female with history of tachycardia and SVT presents to the emergency department for evaluation after having a syncopal episode yesterday. Patient states she was at work after her lunch break was sitting in her car when she had increase in her heart rate and patient suspects that she had an episode of loss of consciousness. Patient states she has been eating and drinking well. Patient does have a current Holter monitor and states she is being worked up for POTS. Patient is well-appearing at time of evaluation. Patient has not significantly tachycardic at time of evaluation. Patient reports she has been eating and drinking well. Patient denies any recent illnesses coughs colds or fevers. Related Data Allergies Allergy/AdvReac Type Severity Reaction Status Date / Time menthol Allergy Unknown Rash Verified 11/04/24 11:05 clindamycin Allergy Rash Verified 11/04/24 11:05 doxycycline AdvReac Intermediate Vomiting Verified 11/04/24 11:05 Review of Systems 2 Review of Systems: All systems reviewed & are unremarkable except as noted in HPI and below PMFSH Past Medical History Medical History (Updated 11/04/24 @ 12:52 by Nito Zavala MD) Encounter to establish care [place] Encounter for confirmation of test result with physical examination Encounter for counseling regarding contraception Encounter for IUD insertion IUD surveillance Vaginal discharge in BMI 34.0-34.9,adult BMI 26.0-26.9,adult Abnormal glucose tolerance test anxiety 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 Ruiz History of dilation and curettage (~03/20/23) [facility] D&C removal of retained products. (c/s 01/21/23) H/O section (~01/21/23) x2 [place] teeth removed History of tonsillectomy H/O breast biopsy 2019 Family History Family History Grandparent Breast cancer Cerebrovascular accident Father Heart disease Mother Asthma Alcoholism Sibling No problems noted. Social History Social History (Updated 09/29/24 @ 07:32 by Lashae Moore) Smoking status: Former smoker Tobacco type: e-cigarettes/vaping Second hand tobacco smoke exposure: No Alcohol intake: current Alcohol use details: Not since Substance use: never Substance use type: does not use Do You Feel Safe in your Home?: Yes Lack of Transportation: No Lack of Food: Never True Current Housing: I Have Housing Concerned About Future Housing: No Difficulty Paying Gas/Electric Bills: No Difficulty Paying for Meds: No Currently Unemployed: No Education: Trade/Vocational Certificate Difficulty w/ Childcare or Family Care: No Living arrangements: with family Occupation/Education: student 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 HEAD: normocephalic, atraumatic. EYES: PERRLA/EOMI, conjunctivae clear. NOSE: Normal no drainage EARS:TMS clear with good light reflex. THROAT: Pharynx clear, no exudate. NECK: Supple. No adenopathy, no masses. RESPIRATORY: Airway patent, respirations nonlabored. Clear to auscultation bilaterally, no rales, rhonchi, wheezing. CARDIOVASCULAR: Regular rate and rhythm without murmurs rubs or gallops. ABDOMINAL: Soft, nontender, nondistended, normal bowel sounds MUSCULOSKELETAL: Moves all extremities. Strength/ROM intact, No edema, No calf tenderness. NEURO: Alert. Cranial nerves II through XII intact. Grossly intact SKIN: Warm, dry. Normal Color Course Vital Signs Vital signs: Vital Signs Temperature 98.0 F 11/04/24 11:01 Pulse Rate 104 H 11/04/24 11:01 Respiratory Rate 18 11/04/24 11:01 Blood Pressure 144/87 H 11/04/24 11:01 Pulse Oximetry 99 11/04/24 11:01 Oxygen Delivery Room Air 11/04/24 11:01 Temperature 98.0 F 11/04/24 11:01 Pulse Rate 80 11/04/24 13:39 Respiratory Rate 16 11/04/24 13:39 Blood Pressure 106/76 11/04/24 13:39 Pulse Oximetry 100 11/04/24 13:39 Oxygen Delivery Room Air 11/04/24 11:01 Medical Decision Making MDM Narrative Medical decision making narrative: 29-year-old female presented to the emergency department for evaluation for episode near-syncope yesterday. Patient is currently afebrile with no leukocytosis and a stable hemoglobin. Patient has not had tachycardia in the emergency department patient's orthostatic vitals were negative. Patient had normal CMP UA was negative for infection test was negative. Patient was treated with a L of lactated Ringer's the emergency department. Patient was encouraged to continue her outpatient follow-up with her physicians as scheduled. Differential Diagnosis Differential Diagnosis: Pots, SVT, tachycardia, dehydration, syncope, near syncope Vital Signs Vital Signs: Vital Signs Temperature 98.0 F 11/04/24 11:01 Pulse Rate 104 H 11/04/24 11:01 Respiratory Rate 18 11/04/24 11:01 Blood Pressure 144/87 H 11/04/24 11:01 Pulse Oximetry 99 11/04/24 11:01 Oxygen Delivery Room Air 11/04/24 11:01 Temperature 98.0 F 11/04/24 11:01 Pulse Rate 80 11/04/24 13:39 Respiratory Rate 16 11/04/24 13:39 Blood Pressure 106/76 11/04/24 13:39 Pulse Oximetry 100 11/04/24 13:39 Oxygen Delivery Room Air 11/04/24 11:01 Lab Data Lab results reviewed: Yes I reviewed the patient's lab results. 11/04/24 11:06 11/04/24 11:06 Labs: Lab Results 11/04/24 11/04/24 11/04/24 Range/Units 11:06 11:31 11:34 WBC 4.7 (4.5-10.0) K/mm3 RBC 4.73 (4.2-5.4) M/mm3 Hgb 14.3 (12.0-15.0) g/dL Hct 42.5 (37.0-47.0) % MCV 89.9 (80-100) fl MCH 30.2 (26-34) pg MCHC 33.6 (32-36) g/dl RDW 12.2 (11.5-14.5) % Plt Count 276 (150-375) k/mm3 MPV 10.7 H (7.4-10.4) fl Immature Gran % (Auto) 0.2 (0-0.5) % Neut % (Auto) 64.5 (45.5-73.1) % Lymph % (Auto) 26.5 (18.3-44.2) % [place] % (Auto) 7.4 (2.6-8.5) % Eos % (Auto) 0.8 (0-4.4) % Baso % (Auto) 0.6 (0.2-1.2) % Lymph # (Auto) 1.25 (0.9-3.2) K/mm3 [place] # (Auto) 0.4 (0.1-0.6) K/mm3 Eos # (Auto) 0.0 (0-0.3) K/mm3 Baso # (Auto) 0.0 (0.0-0.1) K/mm3 Abs Immat Gran (auto) 0.01 (0.00-0.031) K/mm3 Absolute Neuts (auto) 3.0 (1.3-6.7) K/mm3 Absolute Nucleated RBC 0.000 (0.0-0.012) K/mm3 Nucleated RBC % 0.0 (0.0-0.2) % PT 13.6 (11.1-14.7) Seconds INR 1.0 APTT 26.5 (22.3-36.8) Seconds Sodium 137 (137-145) mmol/L Potassium 3.6 (3.4-5.0) mmol/L Chloride 102 (98-107) mmol/L Carbon Dioxide 23 (22-30) mmol/L Anion Gap 12 (4-12) mmol/L BUN 8 (7-17) mg/dL Creatinine 0.63 L (0.7-1.0) mg/dL Estim Creat Clear Calc 81 ml/min Estimated GFR > 60 (59 - ) Glucose 94 (65-110) mg/dL Calcium 9.9 (8.4-10.2) mg/dL Magnesium 1.7 (1.6-2.3) mg/dL Total Bilirubin 1.0 (0.2-1.3) mg/dL AST 29 (14-36) U/L ALT 17 (6-35) U/L Alkaline Phosphatase 65 (38-126) U/L Total Protein 8.4 H (6.3-8.2) g/dL Albumin 5.1 (3.5-5.1) g/dL TSH (Reflex) 3.300 (0.465-4.68) uIU/mL Urine Color Yellow (Yellow) Urine Appearance Clear (Clear) Urine pH 6.0 (5.0-9.0) Ur Specific [place] 1.013 (1.001-1.035) Urine Protein Negative (Negative) mg/dL Urine Glucose (UA) Negative (Negative) mg/dL Urine Ketones 1+ H (Negative) mg/dL Ur Blood (Man) Negative (Negative) Urine Nitrate Negative (Negative) Urine Bilirubin Negative (Negative) Urine Urobilinogen 1.0 (<2.0) mg/dL Leukocyte Esterase Rfl Negative (Negative) TAMIKO/UL POC Urine HCG, Qual Negative (Negative) ECG Data EKG #1: EKG Interpretation: normal rate, sinus rhythm, no ectopy, non-specific ST changes, normal QRS, normal QT and NL axis Discharge Plan Discharge Clinical Impression: Palpitations, Syncope Patient Disposition: Home Condition: Stable Instructions: Antibiotic Form, Heart Palpitations (ED), Near Syncope (ED) Additional Instructions: Drink plenty of fluids. Continue have close follow-up with your primary care physician. Continue your Holter monitor. If you have any worsening symptoms then please call or return to the emergency department. Patient Language: Martiniquais Prescriptions: No Action Nurtec ODT 75 mg tablet,disintegrating 75 mg PO .COMPLEX Qty: 15 5RF Rx Instructions: 1 tablet every other day for migraine prevention escitalopram oxalate 20 mg tablet 20 mg PO DAILY Qty: 90 1RF Follow-up/Referrals: Renae Fan APRN [Primary Care Provider] -
[2024-11-04] MEDS: LACTATED RINGERS 1,000 ML 999 ML IV CONT (11:17)
[2024-11-04 11:22] LABS: Hematocrit 42.5 % (37.0-47.0); Hemoglobin 14.3 g/dL (12.0-15.0); Immature Granulocyte Percent A 0.2 % (0-0.5); Lymphocytes Absolute Auto 1.25 K/mm3 (0.9-3.2); Mean Corpuscular HGB Conc 33.6 g/dl (32-36); Mean Corpuscular Hemoglobin 30.2 pg (26-34); Mean Corpuscular Volume 89.9 fl (80-100); Nucleated Red Blood Cells Absolute Auto 0.000 K/mm3 (0.0-0.012); Nucleated Red Blood Cells Perc 0.0 % (0.0-0.2); Platelet Count Result 276 k/mm3 (150-375); Red Blood Count 4.73 M/mm3 (4.2-5.4); White Blood Count 4.7 K/mm3 (4.5-10.0)
[2024-11-04 11:35] LABS: INR 1.0; Prothrombin Time 13.6 Seconds (11.1-14.7)
[2024-11-04 11:36] LABS: Partial Thromboplastin Time 26.5 Seconds (22.3-36.8)
[2024-11-04 11:39] LABS: BEDSIDEPREGUCG Negative (Negative)
[2024-11-04 11:40] LABS: Alanine Aminotransferase 17 U/L (6-35); Albumin Level 5.1 g/dL (3.5-5.1); Alkaline Phosphatase 65 U/L (38-126); Anion Gap 12 mmol/L (4-12); Aspartate Amino Transferase 29 U/L (14-36); Bilirubin,Total 1.0 mg/dL (0.2-1.3); Blood Urea Nitrogen 8 mg/dL (7-17); Calcium 9.9 mg/dL (8.4-10.2); Carbon Dioxide 23 mmol/L (22-30); Chloride 102 mmol/L (98-107); Estimated CRCL calculation 81 ml/min; Estimated Glomerular Filt Rate > 60; Glucose 94 mg/dL (65-110); Magnesium 1.7 mg/dL (1.6-2.3); Potassium 3.6 mmol/L (3.4-5.0); Sodium 137 mmol/L (137-145); Total Protein 8.4 g/dL (6.3-8.2)
[2024-11-04 11:47] LABS: Add Urine Microscopic? NO; Appearance Urine Clear (Clear); Glucose Urine UA Negative (Negative); Leukocyte Esterase Ur Negative LEU/UL (Negative); Nitrate Urine Negative (Negative); Specific Grav Ur 1.013 (1.001-1.035)
[2024-11-04 12:01] LABS: Thyroid Stimulating Hormone Reflex 3.300 uIU/mL (0.465-4.68)
== END 2024-11-04 13:42 | disposition home or self-care (01) ==
PROVIDERS: Emergency Provider Emergency Medicine; PCP Nurse Practitioner Family
DX: R55 Syncope and collapse (principal); R00.2 Palpitations; E28.2 Polycystic ovarian syndrome; K21.9 Gastro-esophageal reflux disease without esophagitis; Z87.891 Personal history of nicotine dependence
CPT/HCPCS: 36415; 80053; 81003; 81025; 83735; 84443; 85025; 85610; 85730; 93005; 96360; 99284; J7120

== ENCOUNTER 2024-12-07 08:14 | Emergency (ER) | payer BC, SELFPAY ==
--- NOTE | ~2024-12-07 | XR_ITS ---
XR lumbar spine 2-3V 12/07/2024 09:14 Indication: Low back pain Procedure: 3 views lumbar spine Comparison: No prior studies for comparison. Findings: There is levoscoliosis. Vertebral body heights are maintained. No significant disc narrowing. No evidence for spondylolisthesis. Pedicles intact. Sacral foramen are symmetric. Impression: 1: Mild levoscoliosis. Reviewed, dictated and finalized at location O. Impression: 1: Mild levoscoliosis.
--- OUTSIDE RECORDS SUMMARY | 2024-12-07 08:18 | XMS_ITS | Clinical Summary ---
Author Organization [facility] Address [address] [place] [address] Care Team Providers Care Belt Dresser Name Role Phone Unavailable Primary Care Provider Unavailabl e Source Comments [facility],non-owned Affiliates and Associated Physician Practices is amultiple site organization consisting of ambulatory clinics and hospital sitesin [place], [place], [place] and [place]. This disclosure is being madepursuant to the Care Everywhere program and may not contain all information available regarding this patient. 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
[2024-12-07 08:26] VITALS: BP 112/75; PULSE 89; RESP 14; TEMP 36.9; O2SAT 100
--- NOTE | 2024-12-07 08:37 | ED_ITS ---
HPI - Fall General Chief Complaint: Fall Stated Complaint: fall Time Seen by Provider: 12/07/24 08:23 History of Present Illness HPI Narrative: This is a 29-year-old female with history of anxiety presents to the ED for back pain and fall. Patient states that 2 days ago, she slipped on her stairs with her son and hit her left lower spine on for stairs. She states that she has had significant pain since then in the light touches make the pain worse. Denies numbness, tingling, weakness. She has tried ibuprofen with minimal relief. Related Data Allergies Allergy/AdvReac Type Severity Reaction Status Date / Time menthol Allergy Unknown Rash Verified 12/07/24 08:31 clindamycin Allergy Rash Verified 12/07/24 08:31 doxycycline AdvReac Intermediate Vomiting Verified 12/07/24 08:31 Review of Systems Review of Systems: Gen.: Denies fevers or chills Eyes: Denies eye pain or visual change ENT: Denies congestion Respiratory: Denies shortness of breath or cough CV: Denies chest pain or palpitations GI: Denies abdominal pain nausea, emesis or diarrhea denies burning, urgency, frequency or hematuria Musculoskeletal: As per HPI Neuro: Denies numbness, tingling, weakness or focal weakness Skin: Denies rash Except as documented, all other systems reviewed and negative PMF Past Medical History Medical History Encounter to establish care [place] Encounter for confirmation of test result with physical examination Encounter for counseling regarding contraception Encounter for IUD insertion IUD surveillance Vaginal discharge in BMI 34.0-34.9,adult BMI 26.0-26.9,adult Abnormal glucose tolerance test anxiety 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 Ruiz History of dilation and curettage (~03/20/23) [facility]SC D&C removal of retained products. (c/s 01/21/23) H/O section (~01/21/23) x2 [place] teeth removed History of tonsillectomy H/O breast biopsy 2020 Family History Family History Grandparent Breast cancer Cerebrovascular accident Father Heart disease Mother Asthma Alcoholism Sibling No problems noted. Social History Social History Smoking status: Former smoker Tobacco type: e-cigarettes/vaping Second hand tobacco smoke exposure: No Alcohol intake: current Alcohol use details: Not since Substance use: never Substance use type: does not use Do You Feel Safe in your Home?: Yes Lack of Transportation: No Lack of Food: Never True Current Housing: I Have Housing Concerned About Future Housing: No Difficulty Paying Gas/Electric Bills: No Difficulty Paying for Meds: No Currently Unemployed: No Education: Trade/Vocational Certificate Difficulty w/ Childcare or Family Care: No Living arrangements: with family Occupation/Education: student 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 No midline tenderness, step-offs, or deformities. NEURO: Awake and alert. SKIN:: Warm, dry. No rashes lesions or abrasions PSYCHIATRIC: Normal affect/mood, Course Vital Signs Vital signs: Vital Signs Temperature 98.5 F 12/07/24 08:26 Pulse Rate 89 12/07/24 08:26 Respiratory Rate 14 12/07/24 08:26 Blood Pressure 112/75 12/07/24 08:26 Pulse Oximetry 100 12/07/24 08:26 Oxygen Delivery Room Air 12/07/24 08:26 Temperature 98.5 F 12/07/24 08:26 Pulse Rate 89 12/07/24 08:26 Respiratory Rate 14 12/07/24 08:26 Blood Pressure 112/75 12/07/24 08:26 Pulse Oximetry 100 12/07/24 08:26 Oxygen Delivery Room Air 12/07/24 08:26 MDM - Fall MDM Narrative Medical decision making narrative: 29-year-old female that presented to the ED after a fall a couple days ago. She did have a pretty sizable contusion to her left lower back associated tenderness to palpation. There is no midline tenderness, step-offs no deformities. Vital signs are stable. X-ray showed no evidence of fractures. Patient was given Lidoderm. She is advised follow-up with the PCP next week for evaluation. Patient was advised follow-up with her PCP in the next week for evaluation. Patient was agreeable to this plan. Given return precautions Differential Diagnosis Differential diagnosis: Likely other (Fracture, contusion, sprain) Medical Records Attestation: I reviewed the patient's medical records. Imaging Data Radiologist's impression: Impressions Lumbar Spine X-Ray 12/07/24 09:18 Impression: 1: Mild levoscoliosis. Discharge Plan Discharge Clinical Impression: Contusion of lumbar spinal region, Fall (on) (from) other stairs and steps, initial encounter Patient Disposition: Home Condition: Stable Instructions: Antibiotic Form, Contusion in Adults (ED) Additional Instructions: For pain, discomfort or temperature greater than or equal to 100.8 ?F please alternate the following 2 medications as needed. First medication- acetaminophen/Tylenol- 1000mg every 6-8 hours as needed for above indications. Second medication- ibuprofen/Motrin-600mg every 6-8 hours as needed for above indication. Use Lidoderm as prescribed. Follow-up with the PCP in the next week for evaluation. Return to ED for new or worsening symptoms. Patient Language: Bengali Prescriptions: New lidocaine [Lidocan III] 5 % adhesive patch,medicated 1 patch topical DAILY Qty: 15 0RF Rx Instructions: leave on most painful area for up to 12 hrs No Action Nurtec ODT 75 mg tablet,disintegrating 75 mg PO .COMPLEX Qty: 15 5RF Rx Instructions: 1 tablet every other day for migraine prevention escitalopram oxalate 20 mg tablet 20 mg PO DAILY Qty: 90 1RF metoprolol succinate 25 mg tablet extended release 24 hr 25 mg PO DAILY Qty: 30 0RF Follow-up/Referrals: Renae Fan APRN [Primary Care Provider, Internal Medicine] Stand Alone Forms: Work/School Release IP
[2024-12-07] MEDS: LIDOCAINE 5% PATCH 1 PATCH TRANSDERM (09:44)
== END 2024-12-07 09:45 | disposition home or self-care (01) ==
PROVIDERS: Emergency Provider Student in an Organized Health Care Education/Training Program; PCP Nurse Practitioner Family
DX: S30.0XXA Contusion of lower back and pelvis, initial encounter (principal); E28.2 Polycystic ovarian syndrome; K21.9 Gastro-esophageal reflux disease without esophagitis; Z87.891 Personal history of nicotine dependence; W10.9XXA Fall (on) (from) unspecified stairs and steps, initial encounter; Z79.899 Other long term (current) drug therapy
CPT/HCPCS: 72100; 99283; A9270

== ENCOUNTER 2025-01-12 15:23 | Emergency (ER) | payer BC, SELFPAY ==
--- NOTE | ~2025-01-12 | CT_ITS ---
CT HEAD NON-CONTRAST Clinical History: headache, L arm tingling Comparison: None Technique: Unenhanced axial images skull base to vertex Coronal, sagittal reformats CT images acquired with automatic exposure control for dose reduction DLP: 681 mGy-cm Findings: Sulci, ventricles: Unremarkable. No intracerebral hemorrhage. No evidence acute territorial infarct. No mass effect, midline shift. Bony calvarium intact. Visualized paranasal sinuses: Clear. Mastoid air cells: Clear. IMPRESSION: 1. No acute intracranial findings. Reviewed, dictated and finalized at location R.
--- NOTE | ~2025-01-12 | XR_ITS ---
EXAMINATION: XR chest 2V, 01/12/2025 15:56 CDT HISTORY: SOB COMPARISON: No comparisons available. Technique: 2 views obtained. Findings: The lungs are clear, no effusion. No pneumothorax. Heart is normal size. Mediastinal and hilar contours are within normal limits. Bony thorax no acute abnormality. Impression: No acute cardiopulmonary abnormality. Reviewed, dictated and finalized at location P. Impression: No acute cardiopulmonary abnormality.
--- NOTE | ~2025-01-12 | CT_ITS ---
CTA CHEST CLINICAL HISTORY: Chest pain / SOB . COMPARISON: Chest x-ray today TECHNIQUE: Helical CTA performed from thoracic inlet to upper abdomen IV contrast information not listed in PACS Coronal, sagittal reformats. Multiplanar MIPS CT images acquired with automatic exposure control for dose reduction DLP: 153 mGy-cm FINDINGS: Pulmonary arteries: No PE. Thoracic Aorta: No dissection or aneurysm. Heart/pericardium: Unremarkable. RV/LV ratio: Normal. Lungs/Pleura: Clear. Tracheobronchial tree: Patent. Nodes: No enlarged nodes. Bones: No acute bony abnormality. Soft tissues: Unremarkable. Visualized upper abdomen: Hepatomegaly. IMPRESSION: 1. No PE or other acute cardiopulmonary findings. Reviewed, dictated and finalized at location R.
--- NOTE | 2025-01-12 15:25 | ECG_ITS ---
Test Date: 2025-01-12 15:31:41 Measurements Intervals [place] Rate: 141 P: 69 MS: 135 QRS: 52 QRSD: 84 T: 54 QT: 301 QTc: 462 Interpretive Statements SINUS TACHYCARDIA LOW QRS VOLTAGE IN PRECORDIAL LEADS POSSIBLE RIGHT VENTRICULAR CONDUCTION DELAY DELAYED PRECORDIAL R/S TRANSITION BORDERLINE ST-T WAVE ABNORMALITY- ANTEROLAT/INF LEADS BASELINE ARTIFACT- I, II, III, AVR, AVL, AVF, V1-V3 ABNORMAL ECG Compared to ECG 11/04/2024 11:04:34 HEART RATE HAS INCREASED Electronically Signed On 01-12-2025 16:15:08 CDT by Ravi Flores D.O.
--- OUTSIDE RECORDS SUMMARY | 2025-01-12 15:26 | XMS_ITS | Clinical Summary ---
Author Organization [facility] [employer] Address [address] [place] [address] Care Team Providers Care Bindery Worker Name Role Phone Unavailable Primary Care Provider Unavailabl e Source Comments [facility] [employer],non-owned Affiliates and Associated Physician Practices is amultiple site organization consisting of ambulatory clinics and hospital sitesin [place], [place], [place] and [place]. This disclosure is being madepursuant to the Care Everywhere program and may not contain all information available regarding this patient. 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
[2025-01-12 15:44] VITALS: BP 115/76; PULSE 107; RESP 13; TEMP 37; O2SAT 98
[2025-01-12 15:47] LABS: Hematocrit 41.9 % (37.0-47.0); Hemoglobin 14.2 g/dL (12.0-15.0); Immature Granulocyte Percent A 0.4 % (0-0.5); Lymphocytes Absolute Auto 1.23 K/mm3 (0.9-3.2); Mean Corpuscular HGB Conc 33.9 g/dl (32-36); Mean Corpuscular Hemoglobin 30.9 pg (26-34); Mean Corpuscular Volume 91.1 fl (80-100); Nucleated Red Blood Cells Absolute Auto 0.000 K/mm3 (0.0-0.012); Nucleated Red Blood Cells Perc 0.0 % (0.0-0.2); Platelet Count Result 302 k/mm3 (150-375); Red Blood Count 4.60 M/mm3 (4.2-5.4); White Blood Count 13.8 K/mm3 (4.5-10.0)
[2025-01-12 16:02] LABS: INR 1.0; Prothrombin Time 12.9 Seconds (11.1-14.7)
[2025-01-12 16:03] LABS: Partial Thromboplastin Time 25.5 Seconds (22.3-36.8)
[2025-01-12 16:04] LABS: Alanine Aminotransferase 17 U/L (6-35); Albumin Level 5.1 g/dL (3.5-5.1); Alkaline Phosphatase 70 U/L (38-126); Anion Gap 13 mmol/L (4-12); Aspartate Amino Transferase 27 U/L (14-36); Bilirubin,Total 0.8 mg/dL (0.2-1.3); Blood Urea Nitrogen 8 mg/dL (7-17); Calcium 9.9 mg/dL (8.4-10.2); Carbon Dioxide 22 mmol/L (22-30); Chloride 104 mmol/L (98-107); Estimated CRCL calculation 88 ml/min; Estimated Glomerular Filt Rate > 60; Glucose 109 mg/dL (65-110); Lipase 126 U/L (23-300); Potassium 3.5 mmol/L (3.4-5.0); Sodium 139 mmol/L (137-145); Total Protein 8.7 g/dL (6.3-8.2)
--- OUTSIDE RECORDS SUMMARY | 2025-01-12 16:08 | XMS_ITS | Clinical Summary ---
Author Organization [facility] [employer] Address [address] [place] [address] Care Team Providers Care Women Designer Name Role Phone Unavailable Primary Care Provider Unavailabl e Source Comments [facility] [employer],non-owned Affiliates and Associated Physician Practices is amultiple site organization consisting of ambulatory clinics and hospital sitesin [place], [place], [place] and [place]. This disclosure is being madepursuant to the Care Everywhere program and may not contain all information available regarding this patient. 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
[2025-01-12 16:15] LABS: Troponin I < 0.012 ng/mL (0.000-0.034)
[2025-01-12] MEDS: MAG HYDROX/AL HYDROX/SIMETH 30 ML UDC PO (16:38)
[2025-01-12] MEDS: LACTATED RINGERS 2,000 ML 999 ML IV CONT (16:39)
[2025-01-12 17:09] LABS: NT Pro B Type Natriuretic Pept 69 pg/mL (19.9-100)
[2025-01-12 17:10] VITALS: BP 108/70; PULSE 90; RESP 16; O2SAT 100
[2025-01-12] MEDS: ACETAMINOPHEN 500 MG TABLET 1000 MG PO (17:27)
[2025-01-12 17:35] LABS: Cannabinoid Screen Urine Negative (Negative)
[2025-01-12 18:00] VITALS: BP 112/72; PULSE 86; RESP 18; O2SAT 99
[2025-01-12 18:04] LABS: Pregnancy On Board Control Positive
--- NOTE | 2025-01-12 18:31 | ECG_ITS ---
Test Date: 2025-01-12 18:35:25 Measurements Intervals [place] Rate: 97 P: 57 IN: 150 QRS: 37 QRSD: 98 T: 57 QT: 355 QTc: 452 Interpretive Statements SINUS RHYTHM POSSIBLE LEFT ATRIAL ENLARGEMENT LOW QRS VOLTAGE IN PRECORDIAL LEADS INCOMPLETE RIGHT BUNDLE BRANCH BLOCK BASELINE ARTIFACT- III, AVR, AVL, AVF BORDERLINE ECG Compared to ECG 01/12/2025 15:31:41 HEART RATE HAS DECREASED Electronically Signed On 01-12-2025 19:32:04 CDT by Ravi Flores D.O.
[2025-01-12 19:00] VITALS: BP 105/68; PULSE 78; RESP 16; O2SAT 98
[2025-01-12 19:15] LABS: Troponin I < 0.012 ng/mL (0.000-0.034)
[2025-01-12 20:00] VITALS: BP 104/72; PULSE 74; RESP 18; O2SAT 100
--- NOTE | 2025-01-12 20:09 | ED.GENADULT ---
HPI - General Adult General Chief complaint: Arrhythmia/Palpitations Stated complaint: syncope Time Seen by Provider: 01/12/25 15:58 History of Present Illness HPI narrative: This is a 29-year-old female who is being undergoing evaluation for POTS presenting for multiple complaints. Patient said she woke up this morning with a sharp pain in the center of her chest and epigastric area. Is been coming and going throughout the day but can be severe in intensity. She has never had pain like this per low before. It is better when she lays down. Patient also has a headache. She has a history of chronic migraines but says that this feels different. This is a pounding sensation over her entire head. While at work today the patient also developed dizziness blurry vision and felt like she was going to pass out. Patient has a history of frequent syncopal/presyncopal episodes which is why she is being evaluated for POTS. Patient otherwise has been in good health with no recent viral illness. Shortness of breath abdominal pain nausea vomiting or diarrhea. No urinary symptoms. Related Data Allergies Allergy/AdvReac Type Severity Reaction Status Date / Time menthol Allergy Unknown Rash Verified 12/07/24 08:31 clindamycin Allergy Rash Verified 12/07/24 08:31 doxycycline AdvReac Intermediate Vomiting Verified 12/07/24 08:31 PMFSH Past Medical History Medical History Encounter to establish care [place] Encounter for confirmation of test result with physical examination Encounter for counseling regarding contraception Encounter for IUD insertion IUD surveillance Vaginal discharge in BMI 34.0-34.9,adult BMI 26.0-26.9,adult Abnormal glucose tolerance test anxiety 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 Ruiz History of dilation and curettage (~03/20/23) HSC D&C removal of retained products. (c/s 01/21/23) H/O section (~01/21/23) x2 [place] teeth removed History of tonsillectomy H/O breast biopsy 2019 Family History Family History Grandparent Breast cancer Cerebrovascular accident Father Heart disease Mother Asthma Alcoholism Sibling No problems noted. Social History Social History Smoking status: Former smoker Tobacco type: e-cigarettes/vaping Second hand tobacco smoke exposure: No Alcohol intake: current Alcohol use details: Not since Substance use: never Substance use type: does not use Do You Feel Safe in your Home?: Yes Lack of Transportation: No Lack of Food: Never True Current Housing: I Have Housing Concerned About Future Housing: No Difficulty Paying Gas/Electric Bills: No Difficulty Paying for Meds: No Currently Unemployed: No Education: Trade/Vocational Certificate Difficulty w/ Childcare or Family Care: No Living arrangements: with family Occupation/Education: student 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 Head: atraumatic. EYES: EOMI, PERRLA NOSE: Atraumatic NECK: Trachea midline RESPIRATORY: No increased rate of breathing CTAB CARDIOVASCULAR: RRR, no peripheral edema ABDOMINAL: Non-distended soft nontender no guarding rebound MUSCULOSKELETAl: No obvious deformities NEURO: Alert. Cranial nerves 2-12 grossly intact. Sensation light touch, motor function cerebellar function intact for 4 extremities. Gait exam was normal. SKIN:: Warm, dry. Normal color PSYCHIATRIC: Normal affect Course Vital Signs Vital signs: Vital Signs Temperature 98.6 F 01/12/25 15:44 Pulse Rate 107 H 01/12/25 15:44 Respiratory Rate 13 01/12/25 15:44 Blood Pressure 115/76 01/12/25 15:44 Pulse Oximetry 98 01/12/25 15:44 Temperature 98.6 F 01/12/25 15:44 Pulse Rate 90 01/12/25 17:10 Respiratory Rate 16 01/12/25 17:10 Blood Pressure 108/70 01/12/25 17:10 Pulse Oximetry 100 01/12/25 17:10 Medical Decision Making MDM Narrative Medical decision making narrative: -Course: This is a 29-year-old female presenting multiple complaints including headache chest pain and presyncopal episode. Review of the chart shows that she has a history of POTS with frequent syncopal episodes, migraines and GERD which seem to correspond to her current complaints. Patient was given Maalox for her chest pain and epigastric discomfort. Chest pain workup was obtained including troponins x2 EKG and D-dimer. Initial EKG was sinus tachycardia with heart rate of 141. This improved to 90 after treatment. D-dimer was mildly elevated. CT PE did not show any PE or any acute cardiopulmonary process. CT of the brain did not reveal any acute findings either. She was treated with a migraine cocktail which improved essentially all of her symptoms. Patient feels much better and is comfortable going home. Patient be discharged with PCP follow-up and return precautions. -DDX includes but is not limited to: POTS, anxiety, migraine, GERD, ACS, pneumonia, pneumothorax Vital Signs Vital Signs: Vital Signs Temperature 98.6 F 01/12/25 15:44 Pulse Rate 107 H 01/12/25 15:44 Respiratory Rate 13 01/12/25 15:44 Blood Pressure 115/76 01/12/25 15:44 Pulse Oximetry 98 01/12/25 15:44 Temperature 98.6 F 01/12/25 15:44 Pulse Rate 90 01/12/25 17:10 Respiratory Rate 16 01/12/25 17:10 Blood Pressure 108/70 01/12/25 17:10 Pulse Oximetry 100 01/12/25 17:10 Lab Data 01/12/25 15:38 01/12/25 15:38 Labs: Lab Results 01/12/25 01/12/25 01/12/25 Range/Units 15:37 15:38 17:08 WBC 13.8 H (4.5-10.0) K/mm3 RBC 4.60 (4.2-5.4) M/mm3 Hgb 14.2 (12.0-15.0) g/dL Hct 41.9 (37.0-47.0) % MCV 91.1 (80-100) fl MCH 30.9 (26-34) pg MCHC 33.9 (32-36) g/dl RDW 12.4 (11.5-14.5) % Plt Count 302 (150-375) k/mm3 MPV 10.5 H (7.4-10.4) fl Immature Gran % (Auto) 0.4 (0-0.5) % Neut % (Auto) 84.6 H (45.5-73.1) % Lymph % (Auto) 8.9 L (18.3-44.2) % [place] % (Auto) 5.1 (2.6-8.5) % Eos % (Auto) 0.6 (0-4.4) % Baso % (Auto) 0.4 (0.2-1.2) % Lymph # (Auto) 1.23 (0.9-3.2) K/mm3 [place] # (Auto) 0.7 H (0.1-0.6) K/mm3 Eos # (Auto) 0.1 (0-0.3) K/mm3 Baso # (Auto) 0.1 (0.0-0.1) K/mm3 Abs Immat Gran (auto) 0.06 H (0.00-0.031) K/mm3 Absolute Neuts (auto) 11.7 H (1.3-6.7) K/mm3 Absolute Nucleated RBC 0.000 (0.0-0.012) K/mm3 Nucleated RBC % 0.0 (0.0-0.2) % PT 12.9 (11.1-14.7) Seconds INR 1.0 APTT 25.5 (22.3-36.8) Seconds D-Dimer 0.73 H (<0.48) ug/mL Sodium 139 (137-145) mmol/L Potassium 3.5 (3.4-5.0) mmol/L Chloride 104 (98-107) mmol/L Carbon Dioxide 22 (22-30) mmol/L Anion Gap 13 H (4-12) mmol/L BUN 8 (7-17) mg/dL Creatinine 0.69 L (0.7-1.0) mg/dL Estim Creat Clear Calc 88 ml/min Estimated GFR > 60 (59 - ) Glucose 109 (65-110) mg/dL Calcium 9.9 (8.4-10.2) mg/dL Total Bilirubin 0.8 (0.2-1.3) mg/dL AST 27 (14-36) U/L ALT 17 (6-35) U/L Alkaline Phosphatase 70 (38-126) U/L Troponin I < 0.012 (0.000-0.034) ng/mL NT-Pro-B Natriuret Pep 69 (19.9-100) pg/mL Total Protein 8.7 H (6.3-8.2) g/dL Albumin 5.1 (3.5-5.1) g/dL Lipase 126 (23-300) U/L Urine Test Negative Urine Opiates Screen Negative (Negative) Urine Methadone Screen Negative (Negative) Ur Barbiturates Screen Negative (Negative) Ur Phencyclidine Scrn Negative (Negative) Ur Amphetamine Screen Negative (Negative) U Benzodiazepines Scrn Negative (Negative) Urine Cocaine Screen Negative (Negative) U Cannabinoids Screen Negative (Negative) 01/12/25 Range/Units 18:46 WBC (4.5-10.0) K/mm3 RBC (4.2-5.4) M/mm3 Hgb (12.0-15.0) g/dL Hct (37.0-47.0) % MCV (80-100) fl MCH (26-34) pg MCHC (32-36) g/dl RDW (11.5-14.5) % Plt Count (150-375) k/mm3 MPV (7.4-10.4) fl Immature Gran % (Auto) (0-0.5) % Neut % (Auto) (45.5-73.1) % Lymph % (Auto) (18.3-44.2) % [place] % (Auto) (2.6-8.5) % Eos % (Auto) (0-4.4) % Baso % (Auto) (0.2-1.2) % Lymph # (Auto) (0.9-3.2) K/mm3 [place] # (Auto) (0.1-0.6) K/mm3 Eos # (Auto) (0-0.3) K/mm3 Baso # (Auto) (0.0-0.1) K/mm3 Abs Immat Gran (auto) (0.00-0.031) K/mm3 Absolute Neuts (auto) (1.3-6.7) K/mm3 Absolute Nucleated RBC (0.0-0.012) K/mm3 Nucleated RBC % (0.0-0.2) % PT (11.1-14.7) Seconds INR APTT (22.3-36.8) Seconds D-Dimer (<0.48) ug/mL Sodium (137-145) mmol/L Potassium (3.4-5.0) mmol/L Chloride (98-107) mmol/L Carbon Dioxide (22-30) mmol/L Anion Gap (4-12) mmol/L BUN (7-17) mg/dL Creatinine (0.7-1.0) mg/dL Estim Creat Clear Calc ml/min Estimated GFR (59 - ) Glucose (65-110) mg/dL Calcium (8.4-10.2) mg/dL Total Bilirubin (0.2-1.3) mg/dL AST (14-36) U/L ALT (6-35) U/L Alkaline Phosphatase (38-126) U/L Troponin I < 0.012 (0.000-0.034) ng/mL NT-Pro-B Natriuret Pep (19.9-100) pg/mL Total Protein (6.3-8.2) g/dL Albumin (3.5-5.1) g/dL Lipase (23-300) U/L Urine Test Urine Opiates Screen (Negative) Urine Methadone Screen (Negative) Ur Barbiturates Screen (Negative) Ur Phencyclidine Scrn (Negative) Ur Amphetamine Screen (Negative) U Benzodiazepines Scrn (Negative) Urine Cocaine Screen (Negative) U Cannabinoids Screen (Negative) Discharge Plan Discharge Clinical Impression: Headache, Atypical chest pain, Inappropriate sinus tachycardia Patient Disposition: Home Condition: Stable Instructions: Antibiotic Form, Acute Headache (DC) Additional Instructions: Please follow-up with your primary care physician in the next 2-3 days. If you develop any new or worsening symptoms return to the ER for re-evaluation. Patient Language: Mongolian Prescriptions: No Action Nurtec ODT 75 mg tablet,disintegrating 75 mg PO .COMPLEX Qty: 15 5RF Rx Instructions: 1 tablet every other day for migraine prevention lidocaine [Lidocan III] 5 % adhesive patch,medicated 1 patch topical DAILY Qty: 15 0RF Rx Instructions: leave on most painful area for up to 12 hrs escitalopram oxalate 20 mg tablet 20 mg PO DAILY Qty: 90 1RF metoprolol succinate 25 mg tablet extended release 24 hr 25 mg PO DAILY Qty: 30 0RF Follow-up/Referrals: Renae Fan APRN [Primary Care Provider, Internal Medicine]
== END 2025-01-12 20:50 | disposition home or self-care (01) ==
PROVIDERS: Emergency Medicine; Emergency Provider Emergency Medicine; PCP Nurse Practitioner Family
DX: R07.89 Other chest pain (principal); R51.9 Headache, unspecified; I47.11 Inappropriate sinus tachycardia, so stated; E28.2 Polycystic ovarian syndrome; K21.9 Gastro-esophageal reflux disease without esophagitis; Z87.891 Personal history of nicotine dependence; I45.10 Unspecified right bundle-branch block; R94.31 Abnormal electrocardiogram [ECG] [EKG]
CPT/HCPCS: 36415; 70450; 71046; 71275; 80053; 80307; 81025; 83690; 83880; 84484; 85025; 85380; 85610; 85730; 93005; 96361; 96374; 96375; 99284; A9270; J1200; J7120; Q9967

== ENCOUNTER 2025-02-01 15:06 | Outpatient (CLI) | payer BC, SELFPAY ==
[2025-02-01 16:04] LABS: CRP < 0.5 mg/dL (<1.0)
--- OUTSIDE RECORDS SUMMARY | 2025-02-01 19:26 | XMS_ITS | Clinical Summary ---
Author Organization [facility] [employer] Address [address] [place] [address] Care Team Providers Care Correctional Supervisor Name Role Phone Unavailable Primary Care Provider Unavailabl e Source Comments [facility] [facility],non-owned Affiliates and Associated Physician Practices is amultiple site organization consisting of ambulatory clinics and hospital sitesin [place], [place], [place] and [place]. This disclosure is being madepursuant to the Care Everywhere program and may not contain all information available regarding this patient. 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
[2025-02-02 16:08] LABS: ANA by IFA Rfx Titer/Pattern Negative (.)
== END 2025-02-01 15:07 | disposition home or self-care (01) ==
LOC: ANHLAB 15:08
PROVIDERS: PCP Nurse Practitioner Family; Visit Provider Nurse Practitioner
DX: G90.A Postural orthostatic tachycardia syndrome [POTS] (principal); R42 Dizziness and giddiness; M25.50 Pain in unspecified joint; R00.0 Tachycardia, unspecified; I95.9 Hypotension, unspecified; G43.909 Migraine, unspecified, not intractable, without status migrainosus
CPT/HCPCS: 36415; 86038; 86060; 86140